=== PATIENT | female | born 1980 | race Caucasian/White ===

== ENCOUNTER → 2018-07-27 13:11 | Outpatient (REF) | payer OTHER, SELFPAY | LOC: LBN 13:11 | PROVIDERS: PCP Nurse Practitioner; Visit Provider Nurse Practitioner Family | DX: J02.9 Acute pharyngitis, unspecified (principal) | CPT/HCPCS: 87077; 87070 ==

== ENCOUNTER 2018-09-04 11:13 | Outpatient (REF) | payer OTHER, SELFPAY ==
[2018-09-07 14:57] LABS: Chlamydia Result Negative; GC Result Negative; Specimen Description CERVIX
== END 2018-09-04 11:33 ==
LOC: LBN 11:13
PROVIDERS: PCP Nurse Practitioner; Visit Provider Nurse Practitioner Women's Health
DX: Z11.3 Encounter for screening for infections with a predominantly sexual mode of transmission (principal)
CPT/HCPCS: 87491; 87591

== ENCOUNTER 2018-12-03 11:47 | Outpatient (CLI) | payer OTHER, SELFPAY ==
[2018-12-03 12:44] LABS: HGB 13.4 g/dL (12.0-15.5); Mean Corp. HGB Concentration 33.5 g/dL (32.0-36.0); Mean Corpuscular Hemoglobin 30.2 pg (27.0-33.0); Mean Corpuscular Volume 90.1 fL (80-95); Mean Platelet Volume 9.4 fL (8.0-11.0); Platelet Count 221 x1000/uL (130-400); RBC 4.44 m/cumm (4.00-5.20); RBC Distribution Width 12.1 % (11.7-14.6); White Blood Cell Count 5.28 k/cumm (4.4-10.8)
[2018-12-03 13:23] LABS: ALT 29 U/L (12-78); AST 22 U/L (15-37); Albumin 4.2 g/dL (3.4-5.0); Alkaline Phosphatase 65 U/L (46-116); BUN 12 mg/dL (7-18); Bilirubin, Total 0.5 mg/dL (0.2-1.0); CREATININE 0.94 mg/dL (0.55-1.02); Calcium 9.2 mg/dL (8.5-10.1); Chloride 104 mmol/L (98-107); Glucose 78 mg/dL (70-100); Potassium 4.1 mmol/L (3.5-5.1); Sodium 143 mmol/L (136-145); TSH (W/Ref FT4) 1.39 uIU/mL (0.358-3.74); Total Protein 7.4 g/dL (6.4-8.2)
[2018-12-03 13:40] LABS: ESR 7 MM/HR (0-20)
[2018-12-04 12:58] LABS: ANA Interpretation Negative (NEGAT)
== END 2018-12-03 12:07 ==
PROVIDERS: PCP Nurse Practitioner; Visit Provider Nurse Practitioner
DX: R60.0 Localized edema (principal); R53.83 Other fatigue; R06.09 Other forms of dyspnea; I73.9 Peripheral vascular disease, unspecified; R63.5 Abnormal weight gain
CPT/HCPCS: 36415; 80053; 85027; 85652; 84443; 86038

== ENCOUNTER 2018-12-11 00:08 | Outpatient (CLI) | payer OTHER, SELFPAY ==
--- NOTE | 2018-12-11 07:19 | DI.US_ITS ---
SYMPTOMS/DIAGNOSIS: BLOATING, BILATERAL LOWER EXTREMITY EDEMA X 6 MOS, ABDOMINAL DISTENTION, DYSPAREUNIA, R14.0, R60.0, ? PELVIC CONGESTION SYNDROME PELVIC ULTRASOUND: Transabdominal and transvaginal exams were performed. Comparison is made with May,. The transabdominal images are limited by inadequate bladder distention. The uterus measures 9 x 4.6 x 5.7 cm. An IUD is seen appropriately positioned within the endometrium. The uterus is again noted to be retroverted. An involuting cyst is seen on the right ovary. There is some free fluid around the ovaries and in the cul-de-sac. There are dilated periuterine veins bilaterally, which show increased dilatation and blood flow with Valsalva. The vessel diameter is measured up to 6 mm. The findings may indicate pelvic congestion syndrome. IMPRESSION: Dilated periuterine vessels, which could indicate pelvic congestion syndrome.
--- NOTE | 2018-12-11 11:00 | MERGE_ITS ---
*[facility]* *[facility]* [address] [place] [address] Date of study: 12/11/2018 Transthoracic Echocardiography M-mode, complete 2D, complete spectral Doppler, and color Doppler *STUDY CONCLUSIONS* Impressions: Normal study. Summary: 1. Left ventricle: The cavity size was normal. Wall thickness was normal. Systolic function was normal. The estimated ejection fraction was 65-70%. Wall motion was normal; there were no regional wall motion abnormalities. Diastolic parameters were normal. 2. Right ventricle: The cavity size was normal. Wall thickness was normal. Systolic function was normal. 3. Pulmonary arteries: Pulmonary systolic pressure was within the normal range, in the range of 20mm Hg to 25mm Hg. *PATIENT PRESENTATION* Height: 170.2cm ((67in) ) S/D Pressure: 107 / 61 Weight: 83kg ((182.6lb) ) BSA: 2m^2 Test start time: 11:00 AM. Test stop time: 11:50 AM. PERFORMING [facility] COOK ROOM SUPERVISOR RT Lamberto (Uriel)(CT), CS ORDERING Gregoria Patiño REFERRING Gregoria Patiño *PROCEDURE DATA* Procedure information: The patient was identified by two identifiers. This study was interpreted by [facility]. Pertinent images and digital data are archived for permanent storage and are available for subsequent review. No prior study was available for comparison. Study status: Routine. Transthoracic echocardiography. M-mode, complete 2D, complete spectral Doppler, and color Doppler. A Transthoracic Echocardiogram was performed. Scanning was performed from the parasternal, apical, subcostal, and suprasternal notch acoustic windows. Images were obtained using an [id number] cardiac ultrasound machine. Image quality was adequate. Study completion: The patient tolerated the procedure well. There were no complications. History: PMH: LE edema, LE claudication, MORLEY, PVD, dyspnea. *CARDIAC ANATOMY* Left ventricle: The cavity size was normal. Wall thickness was normal. Systolic function was normal. The estimated ejection fraction was 65-70%. Wall motion was normal; there were no regional wall motion abnormalities. Diastolic parameters were normal. Aortic valve: Trileaflet; normal thickness leaflets. Mobility was not restricted. Doppler: Transvalvular velocity was within the normal range. There was no stenosis. There was no significant regurgitation. VTI ratio of LVOT to aortic valve: 0.73. Valve area (VTI): 2.1cm^2. Indexed valve area (VTI): 1cm^2/m^2. Peak velocity ratio of LVOT to aortic valve: 0.75. Valve area (Vmax): 2.2cm^2. Indexed valve area (Vmax): 1.1cm^2/m^2. Mean velocity ratio of LVOT to aortic valve: 0.78. Valve area (Vmean): 2.2cm^2. Indexed valve area (Vmean): 1.1cm^2/m^2. Mean gradient (S): 4.2mm Hg. Peak gradient (S): 7.5mm Hg. Aorta: Aortic root: The aortic root was normal in size. Ascending aorta: The ascending aorta was normal in size. Mitral valve: Structurally normal valve. Mobility was not restricted. Doppler: Transvalvular velocity was within the normal range. There was no evidence for stenosis. There was no significant regurgitation. Valve area by pressure half-time: 3.9cm^2. Indexed valve area by pressure half-time: 1.9cm^2/m^2. Peak gradient (D): 3.3mm Hg. Left atrium: The atrium was normal in size. Right ventricle: The cavity size was normal. Wall thickness was normal. Systolic function was normal. Pulmonic valve: Doppler: Transvalvular velocity was within the normal range. There was no evidence for stenosis. There was no significant regurgitation. Peak gradient (S): 3.3mm Hg. Tricuspid valve: Structurally normal valve. Doppler: Transvalvular velocity was within the normal range. There was no evidence for stenosis. There was trivial regurgitation. Pulmonary artery: Pulmonary systolic pressure was within the normal range, in the range of 20mm Hg to 25mm Hg. Right atrium: The atrium was normal in size. Pericardium: There was no pericardial effusion. Systemic veins: Inferior vena cava: Well visualized. The vessel was patent and normal in size. The respirophasic diameter changes were in the normal range (greater than or equal to 50%). Baseline ECG: Normal sinus rhythm. Measurements Left ventricle Value Reference LV ID, ED, PLAX 4.6 cm 3.5 - 6.0 LV ID, ES, PLAX 3.1 cm 2.1 - 4.0 LV PW thickness, ED, PLAX 0.9 cm LV end-diastolic volume, 1-p A2C 81 ml LV ejection fraction, 1-p A2C 70 % LV end-diastolic volume, 1-p A4C 88 ml LV ejection fraction, 1-p A4C 68 % LV e', lateral 0.176 m/sec LV E/e', lateral 5 LV e', medial 0.159 m/sec LV E/e', medial 6 LV e', average 0.167 m/sec LV E/e', average 5 Ventricular septum Value Reference IVS thickness, ED, PLAX 0.9 cm LVOT Value Reference LVOT ID, A-P 1.9 cm LVOT area 2.9 cm^2 LVOT peak velocity, S 1.03 m/sec LVOT mean velocity, S 0.76 m/sec LVOT VTI, S 24.1 cm LVOT peak gradient, S 4.2 mm Hg LVOT mean gradient, S 2.5 mm Hg Stroke volume (SV), LVOT DP 69 ml Stroke index (SV/bsa), LVOT DP 34 ml/m^2 Aortic valve Value Reference Aortic valve peak velocity, S 1.4 m/sec Aortic valve mean velocity, S 0.97 m/sec Aortic valve VTI, S 33.0 cm Aortic mean gradient, S 4.2 mm Hg Aortic peak gradient, S 7.5 mm Hg VTI ratio, LVOT/AV 0.73 Aortic valve area, VTI 2.1 cm^2 Velocity ratio, peak, LVOT/AV 0.75 Aortic valve area, peak velocity 2.2 cm^2 Velocity ratio, mean, LVOT/AV 0.78 Aortic valve area, mean velocity 2.2 cm^2 Aortic valve area/bsa, mean velocity 1.1 cm^2/m^2 Aorta Value Reference Aortic root ID, ED 2.9 cm Ascending aorta ID, A-P, S 2.7 cm Left atrium Value Reference LA ID, A-P, ES 2.8 cm LA ID/bsa, A-P 1.4 cm/m^2 <=2.2 LA area, ES, A4C 19.6 cm^2 8.8 - 23.4 LA area, ES, A2C 14 cm^2 LA volume/bsa, ES, 1-p A4C 32 ml/m^2 LA volume, ES, 2-p 41 ml LA volume/bsa, ES, 2-p 20 ml/m^2 LA/aortic root ratio 0.99 Mitral valve Value Reference Mitral E-wave peak velocity 0.91 m/sec Mitral A-wave peak velocity 0.35 m/sec Mitral deceleration time 197 ms 150 - 230 Mitral pressure half-time 57 ms Mitral peak gradient, D 3.3 mm Hg Mitral E/A ratio, peak 2.56 Mitral valve area, PHT, DP 3.9 cm^2 Pulmonary veins Value Reference Pulmonary vein peak velocity, S 0.52 m/sec Pulmonary vein peak velocity, D 0.48 m/sec Pulmonary vein velocity ratio, peak, 1.1 S/D Pulmonary vein A-wave reversal peak 0.33 m/sec velocity Tricuspid valve Value Reference Tricuspid regurg peak velocity 2.4 m/sec Tricuspid peak RV-RA gradient 23.3 mm Hg Right atrium Value Reference RA area, ES, A4C 11.9 cm^2 8.3 - 19.5 Pulmonic valve Value Reference Pulmonic peak gradient, S 3.3 mm Hg Legend: (L) and (H) analia values outside specified reference range. I have personally reviewed the images and have reviewed and edited the reported findings. Electronically signed by Lalo Doshi 12/11/2018 12:50
== END 2018-12-11 00:28 ==
PROVIDERS: PCP Nurse Practitioner; Visit Provider Nurse Practitioner
DX: R06.09 Other forms of dyspnea (principal); R60.0 Localized edema; I73.9 Peripheral vascular disease, unspecified; R14.0 Abdominal distension (gaseous); N94.10 Unspecified dyspareunia
CPT/HCPCS: 36415; 76830; 76856; 93306

== ENCOUNTER 2019-01-18 01:15 | Outpatient (CLI) | payer OTHER, SELFPAY ==
--- NOTE | 2019-01-18 10:56 | DI.US_ITS ---
SYMPTOMS/DIAGNOSIS: LEFT LEG SWELLING, M79.89, PELVIC CONGESTION WITH DIFFERENTIAL DIAGNOSIS OF ? DVT LEFT LOWER EXTREMITY ULTRASOUND: The deep veins of the left lower extremity show normal compression, augmentation and color flow. No evidence of a deep venous thrombus is seen. The saphenofemoral junction is well maintained. No focal fluid collections are appreciated. IMPRESSION: No evidence of a left lower extremity DVT.
== END 2019-01-18 01:35 ==
PROVIDERS: PCP Nurse Practitioner; Visit Provider Student in an Organized Health Care Education/Training Program
DX: M79.605 Pain in left leg (principal); M79.89 Other specified soft tissue disorders
CPT/HCPCS: 93971

== ENCOUNTER 2019-07-28 13:07 | Outpatient (CLI) | payer OTHER, SELFPAY ==
[2019-07-28 13:38] LABS: HGB 13.7 g/dL (12.0-15.5); Mean Corp. HGB Concentration 33.4 g/dL (32.0-36.0); Mean Corpuscular Hemoglobin 30.1 pg (27.0-33.0); Mean Corpuscular Volume 90.1 fL (80-95); Mean Platelet Volume 9.3 fL (8.0-11.0); Platelet Count 234 x1000/uL (130-400); RBC 4.55 m/cumm (4.00-5.20); RBC Distribution Width 12.3 % (11.7-14.6); White Blood Cell Count 4.74 k/cumm (4.4-10.8)
[2019-07-28 14:08] LABS: ALT 31 U/L (14-59); AST 19 U/L (15-37); Albumin 4.3 g/dL (3.4-5.0); Alkaline Phosphatase 64 U/L (46-116); Anion Gap 8.2 mmol/L (3-11); BUN 10 mg/dL (7-18); Bilirubin, Total 0.5 mg/dL (0.2-1.0); CO2 28.8 mmol/L (21.0-32.0); CREATININE 0.86 mg/dL (0.55-1.02); Calcium 8.7 mg/dL (8.5-10.1); Chloride 105 mmol/L (98-107); Glucose 82 mg/dL (70-100); Potassium 4.1 mmol/L (3.5-5.1); Sodium 142 mmol/L (136-145); Total Protein 7.3 g/dL (6.4-8.2)
[2019-07-28 14:16] LABS: C-Reactive Protein 0.16 mg/dL (0.0-0.3); Creatine Kinase 116 U/L (26-192); TSH (W/Ref FT4) 2.09 uIU/mL (0.36-3.74)
[2019-07-28 14:24] LABS: ESR 5 mm/hr (0-20)
[2019-07-28 14:36] LABS: Vitamin D 25 Total 21.9 ng/ml (30-100)
[2019-07-28 21:49] LABS: Estradiol 148 pg/ml
[2019-07-29 10:09] LABS: Rheumatoid Factor <8 IU/mL (<12.5)
[2019-07-29 10:23] LABS: Lyme Ab w Rflx to Lyme Confirm Negative
[2019-07-29 14:53] LABS: ANA Interpretation Negative (NEGAT)
[2019-07-30 10:20] LABS: IgA 153 mg/dL (85-499); Interpretation SEE COMMENTS; Tissue Transglutaminase IgA <1.2 U/mL (<4.0)
== END 2019-07-28 13:27 ==
PROVIDERS: PCP Nurse Practitioner; Visit Provider Nurse Practitioner
DX: M25.50 Pain in unspecified joint; M62.89 Other specified disorders of muscle; R25.2 Cramp and spasm; R60.0 Localized edema; R63.5 Abnormal weight gain; I10 Essential (primary) hypertension
CPT/HCPCS: 36415; 80053; 82306; 82550; 82784; 83516; 85027; 85652; 82670; 84443; 86038; 86140; 86431; 86618

== ENCOUNTER 2019-10-15 14:21 | Outpatient (CLI) | payer OTHER, SELFPAY ==
--- NOTE | 2019-10-15 14:30 | DI.RAD_ITS ---
EXAM: XR CERVICAL SPINE COMP 4-5V CLINICAL HISTORY: s/p trauma 10/02, suspect muscular, r/o fx/bone,NECK PAIN, HEADACHE,. TECHNIQUE: 2D digital imaging was performed. COMPARISON: No exams were available for comparison FINDINGS: BONES: No fracture or destructive lesion. Vertebral bodies are unremarkable. DISKS: Intervertebral disc spaces are maintained. ALIGNMENT: Cervical spinal alignment is within normal limits. The odontoid and atlantoaxial articulat ions are normal. SOFT TISSUE: Normal. The lung apices are clear. IMPRESSION: Unremarkable radiographs of the cervical spine.
== END 2019-10-15 14:41 ==
PROVIDERS: PCP Nurse Practitioner; Visit Provider Nurse Practitioner Adult Health
DX: M54.2 Cervicalgia (principal); R51 Headache; S06.0X0D Concussion without loss of consciousness, subsequent encounter
CPT/HCPCS: 72050

== ENCOUNTER 2020-03-23 08:01 | Outpatient (REF) | payer OTHER, SELFPAY ==
--- NOTE | 2020-03-23 07:45 | SKI_PTH ---
PATIENT: Janey Zapata LOC: [facility] U#:[id number] AGE/SX: 40/F ROOM: RE03/23/[address]: Jayme Edwards MD : 1980 BED: DIS: 03/23/2020 SPEC #: [id number] RECD: 03/23/20 12:53 STATUS: AGUSTIN REQ #: [id number] TERESA: 03/23/20 07:[address]: Jayme Edwards DEPT: Surgical Specimen RECD BY: David Dawson ENTERED: 03/23/20 12:56 SP TYPE: TERRA HALL DR: Altagracia Good APRN Tissues: 1 - SKIN BIOPSY(SHAVE/PUNCH) Procedures: SKIN LEVEL 4 Comments: [id number]
== END 2020-03-23 08:21 ==
LOC: LBN 08:01
PROVIDERS: PCP Nurse Practitioner Adult Health; Visit Provider Otolaryngology
DX: L98.499 Non-pressure chronic ulcer of skin of other sites with unspecified severity (principal); R21 Rash and other nonspecific skin eruption
CPT/HCPCS: 88305

== ENCOUNTER 2020-05-31 04:26 | Outpatient (CLI) | payer OTHER, SELFPAY ==
[2020-05-31 16:17] LABS: ALT 28 U/L (14-59); AST 20 U/L (15-37); Albumin 4.7 g/dL (3.4-5.0); Alkaline Phosphatase 52 U/L (46-116); Anion Gap 10.2 mmol/L (3-11); BUN 17 mg/dL (7-18); Bilirubin, Total 0.5 mg/dL (0.2-1.0); CO2 27.8 mmol/L (21.0-32.0); CREATININE 1.16 mg/dL (0.55-1.02); Calcium 9.3 mg/dL (8.5-10.1); Chloride 102 mmol/L (98-107); Estimated GFR 52.28 (mL/min/1.73m2); Glucose 92 mg/dL (74-106); Potassium 4.3 mmol/L (3.5-5.1); Sodium 140 mmol/L (136-145); TSH (W/Ref FT4) 1.75 uIU/mL (0.36-3.74); Total Protein 7.4 g/dL (6.4-8.2)
[2020-06-01 04:24] LABS: Vitamin D 25 Total 26.3 ng/ml (30-100)
== END 2020-05-31 04:46 ==
PROVIDERS: PCP Nurse Practitioner Adult Health; Visit Provider Nurse Practitioner Adult Health
DX: E55.9 Vitamin D deficiency, unspecified (principal); F41.9 Anxiety disorder, unspecified; R63.5 Abnormal weight gain
CPT/HCPCS: 36415; 80053; 82306; 84443

== ENCOUNTER 2020-08-11 16:54 | Outpatient (CLI) | payer OTHER, SELFPAY ==
[2020-08-11 16:27] LABS: Anion Gap 8.6 mmol/L (3-11); BUN 15 mg/dL (7-18); CO2 27.4 mmol/L (21.0-32.0); CREATININE 1.16 mg/dL (0.55-1.02); Chloride 106 mmol/L (98-107); Estimated GFR 52.28 (mL/min/1.73m2); Glucose 86 mg/dL (74-106); Potassium 3.8 mmol/L (3.5-5.1); Sodium 142 mmol/L (136-145)
== END 2020-08-11 17:14 ==
PROVIDERS: PCP Nurse Practitioner Adult Health; Visit Provider Nurse Practitioner Adult Health
DX: E55.9 Vitamin D deficiency, unspecified (principal); R79.89 Other specified abnormal findings of blood chemistry
CPT/HCPCS: 36415; 80048; 82306

== ENCOUNTER 2020-08-28 02:01 | Outpatient (CLI) | payer OTHER, SELFPAY ==
--- NOTE | 2020-08-28 08:30 | DI.US_ITS ---
EXAM: US RENAL CLINICAL HISTORY: r/o hydronephrosis; assess kidneys,ELEVATED CREATININE,R79.89. TECHNIQUE: Olivas scale, color and spectral Doppler were used. COMPARISON: No exams were available for comparison FINDINGS: Renal size in cm: Right: 11.2 left: 11.5 Echogenicity: Normal Hydronephrosis: No Cyst or mass: 1.4 centimeters cyst near the lower pole of the left kidney. Nephrolithiasis: 3 millimeter echogenic foci near the upper and mid left kidney which could represent small stones versus artifact. Other findings: None Bladder:Normal Prevoid vol:391 Postvoid vol:79 Both ureteral jets were seen. There is a small amount of fluid in the cul-de-sac, physiologic. IMPRESSION: Elevated postvoid residual. Questionable left renal stones versus artifact. DATA REPOSITORY:
== END 2020-08-28 02:21 ==
PROVIDERS: PCP Nurse Practitioner Adult Health; Visit Provider Nurse Practitioner Adult Health
DX: R79.89 Other specified abnormal findings of blood chemistry (principal); R39.198 Other difficulties with micturition
CPT/HCPCS: 76770

== ENCOUNTER 2020-10-25 09:53 | Outpatient (REF) | payer OTHER, SELFPAY ==
--- NOTE | 2020-10-25 08:45 | PAPFT_PTH ---
PATIENT: Janey Zapata LOC: [facility] U#:[id number] AGE/SX: 40/F ROOM: RE10/25/[address]: Charlene Babcock DO : 1980 BED: DIS: 10/25/2020 SPEC #: [id number] RECD: 10/25/20 12:54 STATUS: AGUSTIN REQ #: [id number] TERESA: 10/25/20 08:[address]: Charlene Babcock [facility]PT[facility] Cytology RECD BY: Aaliyah Powell ENTERED: 10/25/20 12:54 SP TYPE: PAPFT OTHR DR: Altagracia Good APRN Tissues: 1 - CX/ENDOCX FOR PAP SMEARS Procedures: PAP THIN PREP/UVM Screening Comments: [id number]
== END 2020-10-25 10:13 ==
LOC: LBN 09:53
PROVIDERS: PCP Nurse Practitioner Adult Health; Visit Provider Obstetrics & Gynecology
DX: Z12.4 Encounter for screening for malignant neoplasm of cervix (principal)
CPT/HCPCS: 88142

== ENCOUNTER 2020-11-01 00:34 | Outpatient (CLI) | payer OTHER, SELFPAY ==
--- NOTE | 2020-11-01 07:15 | DI.US_ITS ---
EXAM: US BREAST RT COMPLETE CLINICAL HISTORY: right breast cyst,PAIN TO PALPATION, TWO SMALL LUMPS TECHNIQUE: Ultrasound complete right breast performed. COMPARISON: Today's mammogram was reviewed. FINDINGS: There is no evidence of solid nor significant cystic lesions in all 4 quadrants of the right breast. There are no ultra findings in the 2 areas of apparent clinical concern. There are normal-appearing lymph nodes in the ipsilateral-right axilla. IMPRESSION: Negative complete right breast ultrasound. BI-RADS Category 2 - Benign ultrasound findings DATA REPOSITORY:
--- NOTE | 2020-11-01 10:02 | DI.MAMMO_ITS ---
EXAM: MG MAMMO DIAGNOSTIC BI CLINICAL HISTORY: right breast cyst,PAIN TO PALPATION, TWO SMALL LUMPS. TECHNIQUE: Bilateral full field digital CC and MLO mammographic images were obtained with 3D tomosyn thesis and utilizing computer aided detection (CAD). COMPARISON: None. FINDINGS: There are no CAD designation. There are no new dominant masses nor malignant appearing microcalcification groups. No radiographic f indings in the area of concern in the right breast. No significant architectural distortion or skin thickening-traction. Complete right breast ultrasound performed today reveals no significant solid or cystic lesions in al l 4 quadrants and no significant axillary adenopathy. No significant focal trunk findings in her areas of clinical concern. IMPRESSION: 1. No radiographic evidence of malignancy in the right breast 2. Negative complete right breast ultrasound. BI-RADS Category 2 - Benign Findings Breast Density - Category B - Scattered areas of fibroglandular density Breast density Category C or D implies that the patient has dense breast tissue. Dense breast tissue can make it harder to find cancer on a mammogram. Dense breast tissue is also associated with an incr eased risk of breast cancer. This information about the result of the mammogram report was provided to the patient to raise their awareness. Use this report when you speak with the patient about their risks for breast cancer, which includes their family history. At that time, you may recommend additional screening tests (Ultrasoun d or MRI) as these tests may add significant information. A negative radiographic report should not delay biopsy if a dominant or clinically suspicious mass is present. Up to ten percent of cancers are not identified on mammography. A negative report may reinforce clinical impression. Adenosis and dense breasts may obscure an underlying neoplasm. False positive reports average 6 to 10%. Patient will receive a letter notifying them of these results.
== END 2020-11-01 00:54 ==
PROVIDERS: PCP Nurse Practitioner Adult Health; Visit Provider Obstetrics & Gynecology
DX: N60.01 Solitary cyst of right breast (principal)
CPT/HCPCS: 76642; 77062; 77066; G0279

== ENCOUNTER 2020-11-08 03:44 | Outpatient (CLI) | payer OTHER, SELFPAY ==
[2020-11-08 13:16] LABS: ALT 20 U/L (14-59); AST 16 U/L (15-37); Albumin 4.5 g/dL (3.4-5.0); Alkaline Phosphatase 48 U/L (46-116); Anion Gap 10.4 mmol/L (3-11); BUN 14 mg/dL (7-18); Bilirubin, Total 0.3 mg/dL (0.2-1.0); CO2 26.6 mmol/L (21.0-32.0); CREATININE 1.04 mg/dL (0.55-1.02); Calcium 9.2 mg/dL (8.5-10.1); Chloride 103 mmol/L (98-107); Glucose 81 mg/dL (74-106); Potassium 4.4 mmol/L (3.5-5.1); Sodium 140 mmol/L (136-145); Total Protein 7.2 g/dL (6.4-8.2)
== END 2020-11-08 04:04 ==
PROVIDERS: PCP Nurse Practitioner Adult Health; Visit Provider Nurse Practitioner Gerontology
DX: R33.9 Retention of urine, unspecified (principal); R79.89 Other specified abnormal findings of blood chemistry
CPT/HCPCS: 36415; 80053

== ENCOUNTER 2020-11-09 01:36 | Outpatient (CLI) | payer OTHER, SELFPAY ==
--- NOTE | 2020-11-09 07:00 | DI.CT_ITS ---
EXAM: CT ABDOMEN PELVIS WO/W CLINICAL HISTORY: flank pain w/ ABN renal functions,H/O UROLITHIASIS,ABD PAIN,R10.9. TECHNIQUE: Imaging Protocol: Axial computed tomography images with coronal and sagittal reformatted images were created and reviewed CONTRAST MATERIAL: Intravenous: Omnipaque 100cc Oral: None COMPARISON: No exams were available for comparison FINDINGS: VISUALIZED LUNG BASES: No nodules nor pleural effusions evident. ABDOMEN: There is no ascites. LIVER: There are no obvious focal hepatic lesions evident . GALLBLADDER/BILIARY: No obvious gallbladder pathology. CBD is not dilated. PANCREAS: No evidence of pancreatic mass nor dilatation of the pancreatic duct. SPLEEN: Spleen is not enlarged. No obvious intrasplenic lesions. Splenic and portal veins are paten t. ADRENALS: There are no significant adrenal masses. KIDNEYS: No calculi nor hydronephrosis. No solid renal masses. There is a benign cyst in the inferior pole of the left kidney which measures 1.3 x 1.2 centimetres.. No other focal renal findings. There is a prominent left gonadal vein which show an exhibits a diameter of 7-8 millimeters and which originates as multiple prominent left adnexal veins and drains into the left renal vein. ABDOMINAL AORTA: Abdominal aorta is not enlarged and there is no olcmtjoahjgaiaf-jdhc-limmqk adenopat hy. ABDOMINAL WALL/GI: No evidence of significant anterior abdominal wall hernia. No bowel obstruction. PELVIS: GI: No evidence of appendicitis.No evidence of sigmoid diverticulitis. LYMPH NODES: There is no intrapelvic nor inguinal adenopathy. REPRODUCTIVE: There is an IUD in the uterine cavity. Three the uterus is retroverted. There is smal l amount of fluid adjacent to the fundus of the uterus. There is a cyst in the left ovary which alannah ures 2 x 1.5 centimetres. And others slightly smaller cyst is seen in the right ovary. URINARY BLADDER: No calculi nor obvious masses evident OSSEOUS: No significant osseous lesions. Chronic degenerative disc disease L5-S1 noted. IMPRESSION: 1. Benign 13 x 12 millimeters cyst in the inferior pole of the left kidney. No ominous solid renal m asses. No calculi or hydronephrosis. 2. There are numerous dilated veins in the left adnexa and these drain into a prominent size vertical gonadal vein which itself drains into the left renal vein. Correlation any clinical signs of pelvic congestion syndrome recommended. There is no thrombosis of these veins evident. 3. The uterus is retroverted. There is an IUD in the uterine cavity which appears in satisfactory po sition. However, there is some fluid evident over the fundus of the uterus-presacral region. RADIATION DOSE DELIVERED: 2,718.7mGy.cm Total DLP DATA REPOSITORY: All CT scans at this facility are submitted to the National Radiology Data Registry (NRDR) Dose Index Registry (DIR) with the [employer] (A[employer]). RADIATION OPTIMIZATION: All CT scans at this facility use at least one of these dose optimization te chniques: automated exposure control; mA and/or kV adjustment per patient size (includes targeted exa ms where dose is matched to clinical indication); or iterative reconstruction.
[2020-11-09] MEDS: Omnipaque 350 MG/ML 100 ML BTL IJ (08:47)
[2020-11-09] MEDS: Normal Saline - Diluent 50 ML VIAL IV ×2 (08:48→09:02)
== END 2020-11-09 01:56 ==
PROVIDERS: PCP Nurse Practitioner Adult Health; Visit Provider Nurse Practitioner Gerontology
DX: R10.9 Unspecified abdominal pain (principal); R94.4 Abnormal results of kidney function studies
CPT/HCPCS: 74178; J3490

== ENCOUNTER 2021-02-16 02:31 | Outpatient (CLI) | payer OTHER, SELFPAY ==
[2021-02-16 13:59] LABS: ALT 25 U/L (14-59); AST 17 U/L (15-37); Albumin 4.3 g/dL (3.4-5.0); Alkaline Phosphatase 56 U/L (46-116); Anion Gap 8.1 mmol/L (3-11); BUN 11 mg/dL (7-18); Bilirubin, Total 0.5 mg/dL (0.2-1.0); CO2 28.9 mmol/L (21.0-32.0); Chloride 104 mmol/L (98-107); Glucose 84 mg/dL (74-106); Sodium 141 mmol/L (136-145); Total Protein 7.1 g/dL (6.4-8.2)
== END 2021-02-16 02:32 | disposition home or self-care (01) ==
LOC: LBO 02:32
PROVIDERS: PCP Nurse Practitioner Adult Health; Visit Provider Nurse Practitioner Gerontology
DX: R33.9 Retention of urine, unspecified (principal)
CPT/HCPCS: 36415; 80053

== ENCOUNTER 2021-11-01 12:43 | Outpatient (CLI) | payer OTHER, SELFPAY ==
--- NOTE | 2021-11-01 12:35 | DI.RAD_ITS ---
Exam(s) XR HIP RT COMPLETE AP PELVIS EXAM: XR HIP RT COMPLETE AP PELVIS CLINICAL HISTORY: assess bony alignment R hip; signs impingment?, rt hip pain, M25.551,M62.89. TECHNIQUE: 2D digital imaging was performed. COMPARISON: No exams were available for comparison FINDINGS: No evidence of pelvic nor hip fracture. No hip dysplasia. No degenerative changes either hip. Bone density normal. No osseous lesions. Sacroiliac joints appear unremarkable as does the symphysis pu bis. IUD noted in the central pelvis. IMPRESSION: No significant radiographic findings. DATA REPOSITORY: RADIATION DOSE DELIVERED:
== END 2021-11-01 13:03 ==
PROVIDERS: PCP Nurse Practitioner Adult Health; Visit Provider Nurse Practitioner Adult Health
DX: M25.551 Pain in right hip (principal); M62.89 Other specified disorders of muscle
CPT/HCPCS: 73502

== ENCOUNTER 2022-01-31 02:43 | Outpatient (CLI) | payer OTHER, SELFPAY ==
--- NOTE | 2022-01-31 14:15 | W.PROCNOTE ---
Procedure Note Date of procedure: 01/31/22 Procedure: Right Hip Injection with Fluoroscopic Guidance Surgeon/Proceduralist/Physician: Jay Malik Procedure Diagnosis: Right Hip Labral Tear Procedure Indications: Janey has had persistent pain of the RIGHT hip and groin. Noninvasive measures have been tried. She has a confirmed labral tear of the right hip. To serve as both diagnostic and therapeutic, an injection under fluoroscopy was recommended. I had discussed the risks of the procedure and the patient elected to proceed. Procedure Description: Janey was greeted in the flouroscopy room. The correct side was identified and the consent was reviewed with the patient and signed. The patient was then placed in the supine position on the fluoroscopy table. The RIGHT hip was then prepped with Chloraprep. The anterolateral injection starting point was identiifed by bony landmarks and fluoroscopy. The skin and soft tissue in the tract of the injection was anesthetized with 1% Lidocaine. A spinal needle was then inserted deep into the hip joint at the level of the lateral femoral neck under fluoroscopic guidance. A small amount of Omnipaque solution was injected to confirm intraarticular placement. Once confirmed, the hip was injected with 6cc of 0.5% Bupivicaine and 80mg of Depo-Medrol. A bandaid was placed on the injection site. The patient tolerated the procedure well and noted improvement in pre-injection pain.
--- NOTE | 2022-01-31 14:17 | DI.RAD_ITS ---
Exam(s) RF JOINT INJECTION FLUORO GUID EXAM: RF JOINT INJECTION FLUORO GUID CLINICAL HISTORY: R LABRAL TEAR,gluteal tendinitis,trochanteric bursitis,labral tear,m70.61 TECHNIQUE: 2D and realtime digital imaging was performed. Fluoroscopy was provided for Dr. Kathy gonsalez r guidance with performing a right hip injection COMPARISON: No exams were available for comparison FINDINGS: A single hard copy image shows needle projecting at the lateral margin of the right femoral neck. Sm all amount contrast is seen within the right hip joint. Please see procedure note for details. Fluo ro time 6 seconds RADIATION DOSE DELIVERED: maryjane Simmons=0.75 mGy
[2022-01-31] MEDS: Bupivacaine 0.5% Pres-Free 10 ML VIAL IJ (14:44)
[2022-01-31] MEDS: methylPREDNISolone ACETATE 80 MG/ML VIAL IM (14:45)
[2022-01-31] MEDS: Omnipaque 300 MG/ML 10 ML BTL IJ (14:45)
== END 2022-01-31 03:03 ==
PROVIDERS: PCP Nurse Practitioner Adult Health; Visit Provider Student in an Organized Health Care Education/Training Program
DX: M70.61 Trochanteric bursitis, right hip (principal); M76.01 Gluteal tendinitis, right hip; S73.191A Other sprain of right hip, initial encounter
CPT/HCPCS: 77002; J1040

== ENCOUNTER 2022-05-15 15:45 | Outpatient (CLI) | payer OTHER, SELFPAY ==
[2022-05-15 16:13] LABS: Abs Immature Grans 0.01 10^3/uL (0.0-0.06); Absolute Basophil Count 0.03 10^3/uL (0.0-0.2); Absolute Eosinophil Count 0.04 10^3/uL (0.0-0.7); Absolute Lymphocyte Count 1.38 10^3/uL (1.2-3.4); Absolute Neutrophil Count 3.39 10^3/uL (1.2-6.7); Basophils % 0.6; Eosinophils % 0.8; HCT 38.4 % (36.0-46.0); HGB 12.8 g/dL (11.2-15.7); Immature Grans % 0.2; Lymphocytes % 26.3; MCHC 33.3 % (32.0-36.0); MCV 90 fL (80-95); MPV 9.4 fL (8.0-11.0); Monocytes % 7.6; Neutrophils % 64.5; Platelet Count 208 10^3/uL (130-400); RBC 4.26 10^6/uL (3.93-5.22); RDW 11.9 % (11.7-14.6); RDW-SD 38.9 fL; WBC 5.25 10^3/uL (4.4-10.8)
[2022-05-15 16:20] LABS: ESR 1 mm/hr (0-20)
[2022-05-15 17:20] LABS: ALT 28 U/L (14-59); AST 10 U/L (15-37); Albumin 4.4 g/dL (3.4-5.0); Alkaline Phosphatase 54 U/L (46-116); Anion Gap 9.4 mmol/L (3-11); BUN 11 mg/dL (7-18); Bilirubin, Total 0.6 mg/dL (0.2-1.0); CO2 27.6 mmol/L (21.0-32.0); Calcium 8.8 mg/dL (8.5-10.1); Chloride 103 mmol/L (98-107); Folate 14.2 ng/mL (8.6-20.0); Glucose 81 mg/dL (74-106); Potassium 4.1 mmol/L (3.5-5.1); Sodium 140 mmol/L (136-145); TSH (W/Ref FT4) 1.62 uIU/mL (0.36-3.74); Total Protein 7.2 g/dL (6.4-8.2); Vitamin B12 717 pg/mL (193-986)
[2022-05-15 17:34] LABS: C-Reactive Protein 0.14 mg/dL (0.0-0.3)
[2022-05-17 13:21] LABS: Albumin 63.8 % (55.8-66.1); Albumin g/dL 4.6 g/dL (3.6-5.2); Total Protein 7.2 g/dL (6.3-8.2)
[2022-05-17 15:45] LABS: ANA Interpretation Negative (Negative)
== END 2022-05-15 15:46 | disposition home or self-care (01) ==
LOC: LBO 15:46
PROVIDERS: PCP Nurse Practitioner Adult Health; Visit Provider Nurse Practitioner Adult Health
DX: M70.71 Other bursitis of hip, right hip (principal); M25.50 Pain in unspecified joint; R21 Rash and other nonspecific skin eruption; R23.2 Flushing; R60.0 Localized edema; R68.89 Other general symptoms and signs; R53.83 Other fatigue
CPT/HCPCS: 36415; 80053; 85652; 82607; 82746; 84165; 84443; 85025; 86038; 86140

== ENCOUNTER → 2022-05-16 02:25 | Outpatient (CLI) | payer OTHER, SELFPAY ==
--- NOTE | 2022-05-16 07:45 | DI.RAD_ITS ---
Exam(s) RF JOINT INJECTION FLUORO GUID EXAM: RF JOINT INJECTION FLUORO GUID CLINICAL HISTORY: R HIP PAIN,M76.01,M70.61,S73.191A,FLUOR GUIDED INJECTION,LABRAL TEAR TECHNIQUE: Fluoroscopy provided. Radiologist not present. CONTRAST MATERIAL: None COMPARISON: No exams were available for comparison FINDINGS: Fluoroscopy was provided for therapeutic . Submitted image(s) reveal intra-articular needle placement at the upper femoral neck head junction. Intra-articular contrast injected. Please refer to the procedure report for complete details. Cumulative Dose: maryjane Simmons=1.22 mGy IMPRESSION: RADIATION DOSE DELIVERED:
--- NOTE | 2022-05-16 14:58 | OPPNE_ITS ---
Date of service: 05/16/22 Time of Service: 14:58 Procedure Note Date of procedure: 05/16/22 Procedure: Right Hip Injection with Fluoroscopic Guidance Surgeon/Proceduralist/Physician: Jay Malik Procedure Diagnosis: Right Hip Labral Tear Procedure Indications: Janey has had persistent pain of the RIGHT hip and groin from a labral tear. Noninvasive measures have been tried. A previous injection provided complete relief of pain but it returned. Therefore, an injection under fluoroscopy was recommended. I had discussed the risks of the procedure and the patient elected to proceed. Procedure Description: Janey was greeted in the flouroscopy room. The correct side was identified and the consent was reviewed with the patient and signed. The patient was then placed in the supine position on the fluoroscopy table. The RIGHT hip was then prepped with Chloraprep. The anterolateral injection starting point was i dentiifed by bony landmarks and fluoroscopy. The skin and soft tissue in the tract of the injection was anesthetized with 1% Lidocaine. A spinal needle was then inserted deep into the hip joint at the level of the lateral femoral neck under fluoroscopic guidance. A small amount of Omnipaque solution was injected to confirm intraarticular placement. Once confirmed, the hip was injected with 6cc of 0.5% Bupivicaine and 80mg of Depo-Medrol. A bandaid was placed on the injection site. The patient tolerated the procedure well and noted improvement in pre-injection pain.
== END ==
PROVIDERS: PCP Nurse Practitioner Adult Health; Visit Provider Student in an Organized Health Care Education/Training Program
DX: M70.61 Trochanteric bursitis, right hip (principal); M76.01 Gluteal tendinitis, right hip; S73.191A Other sprain of right hip, initial encounter; X58.XXXA Exposure to other specified factors, initial encounter
CPT/HCPCS: 20610; 77002

== ENCOUNTER 2022-05-20 02:43 | Outpatient (CLI) | payer OTHER, SELFPAY | END 2022-05-20 02:44 | disposition home or self-care (01) | LOC: LBO 02:43 | PROVIDERS: PCP Nurse Practitioner Adult Health; Visit Provider Nurse Practitioner Adult Health ==

== ENCOUNTER 2022-08-30 06:15 | Day surgery (SDC) | payer OTHER, SELFPAY ==
--- NOTE | 2022-08-29 13:59 | W.ANESPRE ---
General Info Date of Service Date Performed: 08/30/22 Height: 5 ft 7 in Weight: 84 kg Body Mass Index (BMI): 29.0 Surgical Procedure: Operation Date: 08/30/22 07:50 Proposed Procedure Side Surgeon p Hip Arthroscopy w/ Labral debridement vs Repair and Femoroplasty, Endoscopic Iliotibial Band Release and Trochanteric Buresectomy Right Todd Chavez MD Meds Allergies and Home Medications Allergies Allergy/AdvReac Type Severity Reaction Status Date / Time vancomycin Allergy Intermediate Rash Verified 08/30/22 06:30 oxycodone HCl [From Percocet] AdvReac Unknown GI Upset Verified 08/30/22 06:30 Home Medication Medication Instructions Recorded ibuprofen 600 mg tablet 600 mg PO PRN 01/03/16 acetaminophen 500 mg tablet 500 mg PO TID PRN 12/11/16 (Acetaminophen Extra Strength) multivitamin (Daily Multi-Vitamin 1 ea PO DAILY 12/11/16 tablet) levonorgestrel 20 mcg/24 hours (7 1 insert intrauterine ONCE 09/04/18 yrs) 52 mg intrauterine device (Mirena) cholecalciferol (vitamin D3) 25 2,000 unit PO DAILY 01/07/20 mcg/drop (1,000 unit/drop) oral drops triamcinolone acetonide 0.1 % 1 applic topical BID #80 grams 03/15/20 topical ointment clobetasol 0.05 % shampoo 1 applic topical DAILY #118 mL 03/20/20 magnesium oxide 500 mg capsule 500 mg PO .QOD 05/29/20 riboflavin (vitamin B2) 100 mg 100 mg PO DAILY 05/29/20 tablet (Vitamin B-2) bupropion HCl 200 mg tablet,12 hr 200 mg PO BID #180 tabs 08/29/21 sustained-release amlodipine 5 mg tablet 5 mg PO DAILY Raynauds #90 tabs 10/19/21 dimenhydrinate 25 mg chewable 50 mg PO PRN 05/15/22 tablet (Dramamine) clindamycin phosphate 1 % lotion 1 applic topical DAILY #60 mL 06/07/22 Current Visit Medications: Current Medications Generic Name Dose Route Start Last Admin Trade Name Freq PRN Reason Stop Dose Admin Ringer's Solution 1,000 mls @ 30 mls/hr 08/30/22 06:00 IV 08/30/22 16:00 INFUSION GISEL Cefazolin Sodium/Dextrose 2 gm in 50 mls @ 100 mls/hr 08/30/22 06:00 Ancef Duplex IVPB 08/30/22 23:59 PREOP GISEL IV Miscellaneous Supplies 1 each 08/30/22 06:00 Iv Access IV 08/30/22 23:59 DIRECTED GISEL Sodium Chloride 0 ml 08/30/22 06:00 Normal Saline Flush 10 Ml Syr IV 08/30/22 23:59 PRN PRN Sodium Chloride 0 ml 08/30/22 06:00 Normal Saline 10 Ml Vial IJ 08/30/22 23:59 DIRECTED PRN Sterile Water 0 ml 08/30/22 06:00 Water,Injection,Sterile 10 Ml Vial IJ 08/30/22 23:59 DIRECTED PRN PFSH Active Problems Active Problems: Problem Status Onset Code Gluteal tendinitis of right buttock M76.01 Trochanteric bursitis of right hip M70.61 Labral tear of right hip joint ~03/2021 S73.191A Raynauds disease I73.00 Elevated serum creatinine R79.89 Vitamin D deficiency E55.9 Anxiety F41.9 IUD surveillance 01/03/16 Z30.431 Medical History Medical History Concussion With post-concussive syndrome; FMLA Cyst of right breast Degeneration of lumbar intervertebral disc with acute herniation (11/28/16) s/p 2 back surgeries Depression Folliculitis (11/28/16) GERD (gastroesophageal reflux disease) (11/28/16) Incomplete bladder emptying Insomnia (11/28/16) Kidney stone Low back pain (11/28/16) Lower extremity edema Lumbar radicular syndrome (11/28/16) Numbness in right leg s/p neurosurgery x2 (posterior R knee and last 2 toes, foot pad) Pelvic congestion syndrome Post concussive syndrome Post laminectomy syndrome (11/28/16) Pruritic rash Derm ([facility]); Biopsy ([facility]) Vertigo (11/28/16) Surgical History Surgical History Discectomy (03/29/11) (R) L5-S1 microsurg decom discectomy - 2nd Surgery (R) L5-S1 discectomy and decompression 02/11 laminectomy (12/11/12) Dr. Santoyo 2011-[place], [place] Tobacco Smoking/Tobacco Use Status: Former Tobacco Use Passive smoking exposure: No Alcohol Alcohol Intake: current Alcohol intake frequency: 0-2 drinks per day Substance Use Substance use: Never Substance use type: does not use Prental History History 2 Para Hx # Term Pregnancies Multiple births Hx # Pregnancies Ectopic pregnancies AB induced Hx Number of Living Children AB spontaneous Vital Signs and Lab Results Vital Signs Most Recent Vital Signs in EMR: Temp Pulse Resp BP Pulse Ox 36.5 C 68 16 112/75 99 08/30/22 06:33 08/30/22 06:33 08/30/22 06:33 08/30/22 06:33 08/30/22 06:33 Lab Results Blood Type / Crossmatch: No Data to Display Complete Blood Count: No Data to Display Complete Metabolic Panel: No Data to Display Liver Function Panel: No Data to Display Coagulation Panel: No Data to Display Cardiac Panel: No Data to Display Arterial Blood Gas: No Data to Display Venous Blood Gas: No Data to Display Pancreas Panel: No Data to Display Thyroid Panel: No Data to Display Infectious Disease: No Data to Display Blood Cultures: No Data to Display Toxicology Panel: No Data to Display Panel: No Data to Display Imaging and Studies Imaging and Studies Study information below may be from another EMR and interpreted by another provider. Please see original notes in EMR for more complete details. Echocardiogram Summary: 12/2018: LVEF 65-70%, PAS 20-25 mmHg, normal RvFxn. Anesthesia Assessment and Plan Anesthesia History Personal History: No History of Anesthesia Complications Family History: No Family History of Anesthesia Complications Exercise Tolerance Exercise Tolerance: Metabolic Equivalents>4 Cardiac & Pulmonary Exam Cardiac Exam: Normal S1/S2 Heart Sounds Pulmonary Exam: Clear Bilateral Breath Sounds Implantable Cardiac Device Does patient have a Pacemaker or an ICD?: No Airway Exam Known Difficult Airway: No Mallampati Class: 2 Mouth Opening: Normal (> 3cm) Thyromental Distance: Greater than 3 cm Neck Range of Motion: Full ROM Neck Circumference: Normal Teeth Condition: Normal Dentition ASA Classification ASA Score: ASA 2 Emergency Case?: No NPO Status NPO Status: NPO Clears >2 hours, Solids >8 hours Status Status: Negative HCG Anesthesia Plan Resuscitation Status: Full Code Anesthesia Technique: General Anesthesia Airway Planned: Endotracheal Tube Pain Management: Surgeon and patient request nerve block Monitors Used: Standard Monitors Preoperative Comments:: 42 yo female for hip scope. Sig PMHx: anxiety/depression (bupropion), consussion, GERD, vertigo, former smoker, occ EtOH, s/p lumbar spine surgury. Discussed risks, benifits to GA with MAO +/- LFC blocks. has some numbness since her back injury that exists at the very distal end of the LFC nerve distribution vs common peronal distribtion. discussed risk of potneally making this worse, she is okay with proceeding.
[2022-08-30] VITALS (11 sets, daily range): BP systolic 91–112; BP diastolic 47–75; PULSE 57–70; RESP 12–21; TEMP 36.3–36.8; O2SAT 96–99; BMI 29.0
[2022-08-30] MEDS: Lactated Ringers 1,000 ML 30 ML IV (07:20)
[2022-08-30] MEDS: ceFAZolin 2 GM/50 ML BAG IVPB (07:35)
--- NOTE | 2022-08-30 08:18 | W.ANESNERVE ---
Nerve Block Single Injection Procedure Date and Time Date Performed: 08/30/22 Procedure Start: 07:48 Location Where Procedure Performed Procedure Location: Operating Room Procedure Stop: 07:58 Reason Performed: Postoperative Analgesia Requesting Provider: Todd Chavez Timeout Performed Timeout Performed: Yes Monitoring Used ECG, Blood Pressure, SpO2, ETCO2 and See EMR for corresponding vital signs Sterility Sterility: Hand Hygiene, Surgical Cap, Surgical Mask, Sterile Gloves and Chlorhexidine Sedation Given During Procedure Sedation Given (Indicate Dose Given): No Sedation given Patient Mental Status Patient Mental Status: Performed under general anesthesia Nerve Block 1st Nerve Block: Laterality: Right Block Type: MAO Needle / Catheter Used: 120mm SonoPlex II Local Anesthetic Bolus (Indicate Dose Given): None and Bupivacaine 0.5% Dose:: 15 mL Additives (Indicate Dose Given): Epinephrine to make 1:200,000 (5mcg/ml) Dose:: 75 mcg and Precedex Dose:: 52.5 mcg Ultrasound: Sterile probe cover and gel used Ultrasound Image Saved?: Yes Nerve Stimulator: Not Used Paresthesia: None Procedure Tolerated: No Complications Procedure Outcome: Successful Performed By: Tomi Lau 2nd Nerve Block: Laterality: Right Block Type: Other (lateral femoral cutaneous) Needle / Catheter Used: 120mm SonoPlex II Local Anesthetic Bolus (Indicate Dose Given): Bupivacaine 0.5% Dose:: 5 mL Additives (Indicate Dose Given): Epinephrine to make 1:200,000 (5mcg/ml) Dose:: 25 mcg and Precedex Dose:: 17.5 Ultrasound: Sterile probe cover and gel used Ultrasound Image Saved?: Yes Nerve Stimulator: Not Used Paresthesia: None Procedure Tolerated: No Complications Procedure Outcome: Successful Performed By: Tomi Lau
--- NOTE | 2022-08-30 09:00 | W.PM.OP ---
Operative Note Operative Note DATE OF PROCEDURE: 08/30/22 PRE-OP DIAGNOSIS: Right hip 1. Labral tear 2. Femoracetabular impingement 3. Iliotibial band syndrome 4. Trochanteric bursitis POST-OP DIAGNOSIS: same PROCEDURE: Right hip 1. Arthroscopic labral debridement, CPT# 92687 2. Arthroscopic femoroplasty, CPT# 47557 3. Endoscopic iliotibial band release, CPT# 35941 4. Endoscopic trochanteric bursectomy, CPT# 81213 SURGEON: Todd Chavez OPTICAL INSTRUMENT SPECIALIST: Purvi Dominguez ANESTHESIA TYPE: Local By Surgeon, General LMA/ETT and Primary Nerve Block (MAO) Refer to Anesthesia Record ESTIMATED BLOOD LOSS: 5 COMPLICATIONS: None Patient was transported to: PACU Patient's condition: stable Indications: Please see complete medical record for details. Findings: Complex degenerative?type anterior labral tear. Small femoral head neck prominence and localized cartilage thinning over bone cyst. Moderately thickened iliotibial band. Abundant inflamed trochanteric bursitis. Procedure Description: In the operating room, general and regional anesthesia were induced. The patient was positioned supine on the [place] table. All bony prominences were well-padded. Preoperative antibiotics were administered. The correct patient, procedure, and side of the procedure were all verified prior to incision. Initially, hip joint distraction arthrogram was set up. When reaching for these instruments, it was clear there were hairs on the sterile field. Unfortunately, this hip arthroscopy tray is the only one at this facility. I discussed with the patient's partner and consider options. The instruments were all taken out of the room and sent for sterile processing. The patient remained stable and positioned comfortably in the meanwhile. Traction post and boots were removed. All the necessary equipment would be ready and biologic testing could be completed in about 60 to 90 minutes. Though it was additional anesthesia time, the patient was already intubated, had regional anesthesia done, and had arranged her personal and work life for surgery today so we kept her safe and waited for the instruments to be cleaned. When everything was available and checked, we proceeded with the planned surgery. An additional cefazolin dose was administered close to the actual incision. 20 cc of 0.25% bupivacaine containing epinephrine was infiltrated about the planned portal sites. Fluoroscopically, an anterolateral portal was established with hip under about 1 cm distraction. Traction start time as noted. Through the spinal needle, a nitinol wire was inserted and the needle removed. An 11 blade was used to create a portal sized incision about the Nitinol wire. A small 4 mm dilator was passed atraumatically over the nitinol wire through the capsule into the hip joint. The nitinol wire was removed. A 6 mm dilator was then passed over the smaller one into the hip joint and the initial dilator removed. The blunt end of a switching stick was then passed into the hip joint and the last dilator removed. The camera sleeve was then inserted over the switching stick, the switching stick removed, and the arthroscope attached to the camera sleeve. An initial dry arthroscopy of the hip joint confirmed appropriate viewing portal location about the equator laterally. Using a combination of fluoroscopic guidance and arthroscopic triangulation a modified mid anterior portal was established in a similar fashion with a spinal needle and sequential dilators. Care was taken to ensure the portal was in an appropriate position and outside the labrum. A banana blade was inserted anteriorly over half pipe. The capsule was released distal to the labrum working towards the anterolateral portal. The camera was then switched to the anterior portal, the anterolateral portal location was confirmed to be appropriate, and the banana blade brought in the anterolateral portal and additional capsule opened here as well. The camera was then switched back to the anterolateral portal. A complete diagnostic arthroscopy of the hip was performed with relevant findings noted above. Rigid cannula was inserted anteriorly in preparation for potential repair. Attention was turned to the largely anterior labral tear. The obviously frayed unstable tissue was debrided with the mechanical shaver. The remaining tissue margin was smoothed and contoured using the radiofrequency ablator. The remainder of the labrum was probed and additional debridement performed slightly anteriorly and superiorly contouring the labrum into healthy tissue. The labrum resection was only mild to moderate. The remnant was probed and there is no additional instability or labral tearing. There was the mildest labral cartilage wave sign at the superior aspect of the tear but no appreciable separation between the labral and chondral layers. Decision was made to admit any additional labral surgery including repair of this now stable debrided labral tear. The blunt end of a switching stick was left in the anterior portal, but appropriately withdrawn from hip joint. The camera was withdrawn similarly. Under direct visualization traction was gradually released at 53. The femoral head neck junction was inspected about the zone of labral injury. There was good labral suction seal with the remnant. The hip was brought through internal rotation, external rotation, and deep flexion with rotation. There was an obvious zone of cartilage softening proximal to the small head neck prominence. The distal anterior lateral portal was established. A switching stick was used to retract the capsule distally through the anterior portal and the mechanical shaver used to resect unstable cartilage exposing bone softening about a small cystic area distal to the labral tear and contour the femoral head neck away from the labrum as part of a small femoroplasty. The limited capsulotomy had well apposed tissue ends and was not formally closed. The hip was drained of arthroscopic fluid. 10 cc of 0.25% bupivacaine containing epinephrine was infiltrated about the subcutaneous tissue and deeply over the greater trochanter. Under fluoroscopic guidance, a switching stick and arthroscope were inserted localizing the iliotibial band over the greater trochanter. Blunt dissection and the mechanical shaver were used to resect fat and overlying tissue about the center of the iliotibial band and carefully expose the anterior and posterior margins. Once there was adequate exposure of the IT band, the greater trochanter was again localized under fluoroscopic guidance with a spinal needle inserted through the skin down to bone. This central area was marked using the radiofrequency ablator. A [place] blade was brought in and used to create a 2 cm longitudinal incision in line with the IT band fibers as well as extending it in a cruciate fashion with 2 cm incisions anteriorly and posteriorly. The radiofrequency ablator was used to achieve hemostasis. The mechanical shaver was then used to debride the IT band released edges exposing the trochanteric bursa. The mechanical shaver was then used to excise the trochanteric bursa taking care to protect musculature about the margins of the greater trochanter as well as neurovascular structures especially posteriorly. There was poor visualization of the greater trochanter in usual gluteus medius and vastus lateralis landmarks due to the abundant hemorrhagic bursa. The hip was brought through range of motion including internal and external rotation and there was no impinging iliotibial band tissue. When all reasonable bursal tissue had been removed and greater trochanter margins confirmed bluntly and with fluoroscopy, the bursectomy was completed. Suction was used to remove fluid from the endoscopic space. The portals were closed using 3-0 Monocryl in a buried fashion. Steri-Strips were applied over the incisions followed by Xeroform, 4 x 4 gauze, an ABD pad and secured with tape. The patient awoke from anesthesia without complication and was transferred to the recovery room in a stable condition.
--- NOTE | 2022-08-30 11:15 | DI.RAD_ITS ---
Exam(s) XR HIP RT IN OR EXAM: XR HIP RT IN OR CLINICAL HISTORY: (1) Gluteal tendinitis of right buttock: TECHNIQUE: 2D and realtime digital imaging was performed. COMPARISON: No exams were available for comparison FINDINGS: C-arm fluoroscopy was utilized by Dr. hCavez. Please see the procedure note. IMPRESSION: RADIATION DOSE DELIVERED: maryjane Simmons=18.6 mGy
[2022-08-30] MEDS: Bupivacaine 0.5% Pres-Free W/EPI 30 ML VIAL (11:22)
--- NOTE | 2022-08-30 11:23 | W.PM.DSUDISC ---
Discharge Plan Disposition Patient Disposition: HOME Condition: Stable Discharge Details Reason For Visit: Right hip surgery Attending Provider: Todd Chavez Primary Care Provider: Altagracia Good Home Meds and New Rx's Prescriptions: New aspirin 81 mg tablet,delayed release (DR/EC) 81 mg PO DAILY 14 Days Qty: 14 0RF ondansetron 4 mg tablet,disintegrating 4 mg PO Q6H PRN (Reason: nausea or vomiting) Qty: 5 0RF oxycodone 5 mg tablet 5 - 10 mg PO Q4H MDD 30 mg PRN (Reason: moderate to severe pain) Qty: 18 0RF Continued magnesium oxide 500 mg capsule 500 mg PO .QOD Label Comments: Leg cramps riboflavin (vitamin B2) [Vitamin B-2] 100 mg tablet 100 mg PO DAILY Label Comments: Nerves Rx Instructions: 400 mg triamcinolone acetonide 0.1 % ointment 1 applic TP BID Qty: 80 0RF Rx Instructions: Mix with emollient of choice and apply to arms, legs, back, neck, head, trunk, hands BID until rash gone. Mirena 20 mcg/24 hr (5 years) intrauterine device 1 insert IY ONCE cholecalciferol (vitamin D3) 1,000 unit/drop drops 2,000 unit PO DAILY clobetasol 0.05 % shampoo 1 applic TP DAILY Qty: 118 0RF Rx Instructions: To apply to pruritic rash to scalp once daily x14 days. bupropion HCl 200 mg tablet sustained-release 12 hr 200 mg PO BID Qty: 180 3RF Rx Instructions: Dose increase 08/14/2021 amlodipine 5 mg tablet 5 mg PO DAILY Qty: 90 3RF Rx Instructions: Podiatry 12/2020 recommended Dramamine 25 mg tablet,chewable 50 mg PO PRN Rx Instructions: pt reported med. uses PRN, OTC if needed for motion sickness. acetaminophen [Acetaminophen Extra Strength] 500 MG tablet 500 mg PO TID PRN multivitamin [Daily Multi-Vitamin] 1 EACH tablet 1 ea PO DAILY clindamycin phosphate 1 % lotion 1 applic topical DAILY Qty: 60 0RF Discontinued ibuprofen 600 MG tablet 600 mg PO PRN Discharge Instructions Additional Instructions: Surgery: Right hip arthroscopy with labral debridement and femoroplasty and endoscopic iliotibial band release and trochanteric bursectomy Activity: Weightbearing as tolerated. May discontinue crutches as soon as comfortable. Avoid deep hip flexion for 4 weeks. No cutting, pivoting, or sports for 2-3 months. A physical therapy prescription will be sent electronically to start in about 3 weeks. Prescriptions: Aspirin 81 mg take 1 daily to prevent a blood clot for 14 days Naproxen 250 mg take 1-2 every 12 hours with a meal as needed for moderate pain Oxycodone 5 mg take 1-2 every 4-6 hours as needed for severe pain You may use [id number] Tylenol (acetaminophen) as needed for mild pain. These pain medications may be taken all at once or in different combinations as needed. Also, recommend Colace (docusate) as a stool softener as surgery and pain medicine cause constipation. You may try [id number] diphenhydramine (Benadryl) 25-50 mg nightly as a sleep aid Dressings: Leave dressing in place for 3 days. May then remove and leave open to air or cover incisions with Band-Aids. May shower after 5 days. Follow-up: 10-[address] Chavez You may take off the leg compression stockings this evening at home. You may also leave them on a few days longer if you have a history of leg swelling or edema. Let us know right away if you develop any redness, drainage, fevers, chest pain, or trouble breathing. Do not drink alcohol or drive for at least 24 hours after anesthesia. Please call the office during business hours with any questions or concerns. Discharge Orders Discharge Orders: Discharge Order (Routine); Ordered 08/30/22 Ordered By: Todd Chavez DS: Diagnosis Discharge Diagnosis (1) Labral tear of right hip joint: Status: Acute
[2022-08-30] MEDS: HYDROmorphone 2 MG/ML SYR IVP ×2 (12:13→12:21)
[2022-08-30] MEDS: Normal Saline 10 ML VIAL IJ (12:13)
[2022-08-30] MEDS: oxyCODONE 5 MG TAB PO (13:21)
--- NOTE | 2022-08-30 13:30 | W.ANESPOSTOP ---
Postoperative Evaluation Date, Time and Location Date Performed: 08/30/22 Time Performed: 13:30 Patient Location: Day Surgery Unit Vital Signs Most Recent Imported Vital Signs: Most Recent Vital Signs Temp Pulse Resp BP Pulse Ox 36.8 C 63 16 93/49 L 96 08/30/22 12:39 08/30/22 12:39 08/30/22 12:39 08/30/22 12:39 08/30/22 12:39 Pain Score Most Recent Pain Score: Most Recent Pain Score Pain Level 2 08/30/22 12:39 Assessment Mental Status: Arousable with meaningful communication Airway and Respiratory Function: Patent airway with normal (patient baseline) respiratory exam Cardiovascular Function: Hemodynamically Stable Hydration Status: Adequately Hydrated Nausea & Vomiting: No Nausea or Vomiting Pain: Pain is tolerable per patient Peripheral Nerve Block: Regional nerve block not resolved at time of post operative discharge
== END 2022-08-30 15:12 | disposition home or self-care (01) ==
PROVIDERS: PCP Nurse Practitioner Adult Health; Visit Provider Student in an Organized Health Care Education/Training Program
PROC: (CPT 29863; principal; 2022-08-30 07:30)
DX: M70.61 Trochanteric bursitis, right hip (principal); M24.151 Other articular cartilage disorders, right hip; M76.31 Iliotibial band syndrome, right leg; M25.851 Other specified joint disorders, right hip
CPT/HCPCS: 29914; 29862; 27062; 27305; 76942; 81025; 73501; J0131; J0171; J0690; J1100; J1170; J1885; J2250; J2405; J2704; J3475

== ENCOUNTER 2022-10-11 11:09 | Outpatient (REF) | payer OTHER, SELFPAY ==
[2022-10-11 16:01] LABS: Abs Immature Grans 0.02 10^3/uL (0.0-0.06); Absolute Basophil Count 0.05 10^3/uL (0.0-0.2); Absolute Eosinophil Count 0.13 10^3/uL (0.0-0.7); Absolute Lymphocyte Count 1.12 10^3/uL (1.2-3.4); Absolute Monocyte Count 0.88 10^3/uL (0.1-0.8); Absolute Neutrophil Count 7.19 10^3/uL (1.2-6.7); Basophils % 0.5; Eosinophils % 1.4; HCT 39.5 % (36.0-46.0); HGB 12.7 g/dL (11.2-15.7); Immature Grans % 0.2; Lymphocytes % 11.9; MCH 29.7 pg (27.0-33.0); MCHC 32.2 % (32.0-36.0); MCV 92 fL (80-95); MPV 9.3 fL (8.0-11.0); Monocytes % 9.4; Neutrophils % 76.6; Platelet Count 226 10^3/uL (130-400); RBC 4.28 10^6/uL (3.93-5.22); RDW 11.7 % (11.7-14.6); RDW-SD 39.8 fL; WBC 9.39 10^3/uL (4.4-10.8)
[2022-10-11 17:42] LABS: Mono Screening Negative (Negative)
== END 2022-10-11 11:10 | disposition home or self-care (01) ==
LOC: LBN 11:09
PROVIDERS: Student in an Organized Health Care Education/Training Program; PCP Nurse Practitioner Adult Health; Visit Provider Nurse Practitioner Adult Health
DX: J02.9 Acute pharyngitis, unspecified (principal); R09.81 Nasal congestion; R09.89 Other specified symptoms and signs involving the circulatory and respiratory systems; B34.9 Viral infection, unspecified; Z20.828 Contact with and (suspected) exposure to other viral communicable diseases
CPT/HCPCS: 80053; 85025; 86308

== ENCOUNTER 2023-05-07 08:29 | Outpatient (CLI) | payer OTHER, SELFPAY ==
--- NOTE | 2023-05-07 08:15 | DI.RAD_ITS ---
Exam(s) XR HIP RT COMPLETE AP PELVIS EXAM: XR HIP RT COMPLETE AP PELVIS CLINICAL HISTORY: Right hip pain. TECHNIQUE: 2D digital imaging was performed of the right hip. Three images were obtained. AP pelvis and lateral right hip views were obtained. COMPARISON: CR XR HIP RT COMPLETE AP PELVIS from 11/01/2021 FINDINGS: BONES: No acute fracture is present. No bony destructive lesion is seen. JOINTS: No dislocation present. The joint spaces are well maintained. The sacroiliac joints and symp hysis pubis are unremarkable. SOFT TISSUE: There is a tiny calcification adjacent to the greater trochanter likely reflecting calci fic tendinitis. There is an IUD in the pelvis. IMPRESSION: Calcific tendinitis adjacent to the right greater trochanter. Otherwise unremarkable right hip. DATA REPOSITORY: RADIATION DOSE DELIVERED:
== END 2023-05-07 08:30 | disposition home or self-care (01) ==
LOC: DIORS 08:29
PROVIDERS: PCP Nurse Practitioner Adult Health; Referring Provider Nurse Practitioner Adult Health; Visit Provider Student in an Organized Health Care Education/Training Program
DX: S73.191D Other sprain of right hip, subsequent encounter; S84.91XD Injury of unspecified nerve at lower leg level, right leg, subsequent encounter; X58.XXXD Exposure to other specified factors, subsequent encounter; M65.251 Calcific tendinitis, right thigh
CPT/HCPCS: 73502

== ENCOUNTER 2023-05-13 00:41 | Outpatient (CLI) | payer OTHER, SELFPAY ==
--- NOTE | 2023-05-13 14:30 | DI.MRI_ITS ---
Exam(s) MR LOWER JOINT RT WO EXAM: MR LOWER JOINT RT WO CLINICAL HISTORY: R HIP PAIN,TROCHANTERIC BURSITIS,LABRAL TEAR RT HIP JOINT,M70.61,S73.191A TECHNIQUE: Multiplanar multisequence MRI of the hip was performed. COMPARISON: CR XR HIP RT COMPLETE AP PELVIS from 05/07/[address] ABDOMEN PELVIS W from 05/08/2023 FINDINGS: MARROW:There is no evidence of fracture, bone contusion, nor avascular necrosis. There are no signif icant osseous lesions.There is no significant osseous excrescence at the femoral head-neck junction t o suggest the presence of cam-type JAMISON. EFFUSION: There is no evidence of joint effusion. SOFT TISSUE/BURSAE: There is a abnormality in the gluteus medius insertional tendon side as well as j ust lateral to the greater trochanter consistent with element of tendinitis-mild bursitis. There is also a sliver of fluid more laterally which exactly corresponds to linear air seen on the CT scan of 05/08/2023 and may correspond to prior therapeutic injection site path. HIP JOINT SPACE: No obvious chondral defects.There is no hypertrophy of the ligamentum teres nor sign al abnormality at the fovea centralis. LABRUM: There is no evidence of obvious labral tear nor evidence of paralabral cyst. ISCHIAL TUBEROSITY/HAMSTRING: There is no abnormal intraosseous signal in the ipsilateral ischial tub erosity nor tear of the common hamstrings tendon attachment site at this level. OTHER: There is no abnormal intramuscular signal within the quadratus femoris to suggest the presence of impingement syndrome at this level. IMPRESSION: 1. Findings are consistent with tendinitis/mild bursitis findings adjacent to the greater trochanter. There is also linear fluid signal slightly lateral to this level which appears to be along a pathwa y of possible prior injection site. 2. Minimal if any significant degenerative changes in the hip joint. No abnormal intraosseous signal in the femoral head and neck. No evidence of avascular necrosis. 3. No obvious labral tear. No evidence of paralabral cyst. DATA REPOSITORY:
== END 2023-05-13 01:01 ==
LOC: DI 00:42
PROVIDERS: PCP Nurse Practitioner Adult Health; Visit Provider Student in an Organized Health Care Education/Training Program
DX: M70.61 Trochanteric bursitis, right hip (principal); S73.191A Other sprain of right hip, initial encounter; X58.XXXA Exposure to other specified factors, initial encounter
CPT/HCPCS: 73721

== ENCOUNTER 2023-06-23 11:21 | Outpatient (CLI) | payer OTHER, SELFPAY ==
[2023-06-23 11:27] VITALS: BP 110/61; PULSE 63; RESP 20; TEMP 36.3; O2SAT 97
[2023-06-23 12:10] VITALS: PULSE 68; O2SAT 95
[2023-06-23] MEDS: methylPREDNISolone ACETATE 40 MG/ML VIAL IJ (12:26)
[2023-06-23] MEDS: Bupivacaine 0.5% Pres-Free 10 ML VIAL IJ (12:26)
--- NOTE | 2023-06-23 12:36 | PDOC.PAIN ---
Date of service: 06/23/23 Time of Service: 12:00 Pain Managment Procedure Note Procedure Note Procedure Note: PROCEDURE NOTE ULTRASOUND-GUIDED RIGHT HIP TROCHANTERIC BURSA INJECTION Date of Service: June 23, 2023 Patient: Janey Zapata Provider: Fabio Jim DO, MPH Pre-operative diagnosis: Lateral hip pain Post-operative diagnosis: Same Pre-procedure pain: VAS= 4/10 COMMENTS: She is a direct referral for this procedure by her orthopedic surgeon. She does have right lateral hip area pain as well as right gluteal and SIJ area pain. Janey Zapata has been referred to the [facility] for an ultrasound-guided RIGHT trochanteric bursa injection. Janey was interviewed and the medical record reviewed. There were no medical, pharmacologic, radiographic or other structural contraindications to attempting a ultrasound-guided trochanteric bursa injection. Risks and potential side effects as well as potential benefit of the procedure were reviewed with Ms. Zapata, and her voiced concerns were addressed. After verbal informed consent was obtained, the printed consent form was signed. Standard time-out procedure was performed. Janey was placed in the lateral recumbant position on the procedure table with the affected side up. Next, automated blood pressure cuff and pulse oximeter applied. The skin entry point for approaching the RIGHT trochanteric bursa was identified under the most advantageous ultrasound view and marked. Following thorough Chlorhexadine preparation of the skin and draping and 1% lidocaine infiltration of the skin entry point and subcutaneous tissues, a 25 gauge spinal needle was placed under ultrasound guidance using an in-plane view to numb the skin with 2 cc of 1% Lidocaine. Next a pajunk ultrasound needed was placed under ultrasound guidance down to the trochanteric bursa. 40 mg of Depo medrol (40 mg/cc) was injected into the bursa with an initial reproduction of a significant component of the usual pain and hydrodisection in the trochanteric bursa. Next, 3 ml of 1% Lidocaine was injected into the bursa. The needle was then removed without difficulty. Janey's vital signs were stable throughout the procedure and were as recorded in the docflowsheet by the nursing staff. If given, dosages of intravenous drugs for anxiolysis and analgesia were documented in MAR. Follow up plans and appointments were discussed with the Janey. Post procedure instruction was given as documented in nursing documentation and having met discharge criteria, Janey was discharged from the [facility]. COMMENTS: No apparent complications. Post-procedure pain;VAS= 0/10 to the right lateral hip pain, right buttock pain and right SIJ area pain. The patient understands that she should be nearly [id number] over the next 7 days. After that he will concentrate of gluteal muscle and IT band stretching for 2 weeks. At 3 weeks post-procedure, Janey can start toning exercises for the gluteal muscles. She had a very large right Gluteus Medius tendon with apparent calcifications. F/U with our office and/or orthopedics I personally performed this entire procedure. Fabio Jim DO, MPH ABPMR-subspecialty board certification in Pain Medicine Attending Physician-Pain Management
== END 2023-06-23 11:22 | disposition home or self-care (01) ==
PROVIDERS: PCP Nurse Practitioner Adult Health; Visit Provider Preventive Medicine Occupational Medicine
DX: M70.61 Trochanteric bursitis, right hip (principal)
CPT/HCPCS: 20611; J1030

== ENCOUNTER 2023-07-23 04:19 | Outpatient (CLI) | payer OTHER, SELFPAY ==
[2023-07-23 14:13] LABS: Abs Immature Grans 0.01 10^3/uL (0.0-0.06); Absolute Basophil Count 0.02 10^3/uL (0.0-0.2); Absolute Eosinophil Count 0.06 10^3/uL (0.0-0.7); Absolute Lymphocyte Count 1.53 10^3/uL (1.2-3.4); Absolute Monocyte Count 0.47 10^3/uL (0.1-0.8); Absolute Neutrophil Count 3.06 10^3/uL (1.2-6.7); Basophils % 0.4; Eosinophils % 1.2; HCT 38.1 % (36.0-46.0); Immature Grans % 0.2; Lymphocytes % 29.7; MCHC 34.1 % (32.0-36.0); MCV 88 fL (80-95); MPV 9.1 fL (8.0-11.0); Monocytes % 9.1; Neutrophils % 59.4; Platelet Count 198 10^3/uL (130-400); RBC 4.33 10^6/uL (3.93-5.22); RDW 11.9 % (11.7-14.6); RDW-SD 38.5 fL; WBC 5.15 10^3/uL (4.4-10.8)
[2023-07-23 14:22] LABS: ESR 6 mm/hr (0-20)
[2023-07-23 14:58] LABS: C-Reactive Protein 0.05 mg/dL (0.0-0.3)
[2023-07-23 22:03] LABS: Rheumatoid Factor <8.6 IU/mL (<12.0)
[2023-07-24 09:45] LABS: Cyclic Citrullinated Peptide <2.5 U/mL (<5.0)
[2023-07-24 11:05] LABS: Lyme Ab w Rflx to Lyme Confirm Negative (Negative)
[2023-07-24 15:07] LABS: ANA Interpretation Negative (Negative)
[2023-07-25 21:04] LABS: Anaplasma phagocytophilum Negative (Negative); B. miyamotoi PCR Negative (Negative); Babesia divergens/MO-1 Negative (Negative); Babesia duncani Negative (Negative); Babesia microti Negative (Negative); Ehrlichia chaffeensis Negative (Negative); Ehrlichia ewingii/canis Negative (Negative); Ehrlichia muris eauclairensis Negative (Negative)
== END 2023-07-23 04:20 | disposition home or self-care (01) ==
LOC: LBO 04:19
PROVIDERS: PCP Nurse Practitioner Adult Health; Visit Provider Student in an Organized Health Care Education/Training Program
DX: M70.61 Trochanteric bursitis, right hip (principal); M25.551 Pain in right hip
CPT/HCPCS: 36415; 85652; 86200; 87798; 85025; 86038; 86140; 86431; 86618

== ENCOUNTER 2023-08-27 09:42 | Outpatient (CLI) | payer OTHER, SELFPAY ==
--- NOTE | 2023-08-27 07:15 | DI.RAD_ITS ---
Exam(s) XR PAIN CLINIC SACRIOILIAC 2V EXAM: XR PAIN CLINIC SACRIOILIAC 2V CLINICAL HISTORY: Sacroiliac Joint Dysfunction TECHNIQUE: 2D and realtime digital imaging was performed. CONTRAST MATERIAL: Refer to procedure report. COMPARISON: No exams were available for comparison FINDINGS: Fluoroscopy was provided for Dr. Jim during the performance of a right SI joint injection. Please refer to the procedure report for complete details. Ka,r=6.81 mGy IMPRESSION:
[2023-08-27 10:12] VITALS: BP 126/81; PULSE 78; RESP 20; TEMP 36.1; O2SAT 97
[2023-08-27] MEDS: Omnipaque 240 MG/ML 50 ML BTL IJ (10:36)
[2023-08-27] MEDS: methylPREDNISolone ACETATE 80 MG/ML VIAL IJ (10:36)
[2023-08-27 10:44] VITALS: BP 118/82; PULSE 68; RESP 21; O2SAT 99
--- NOTE | 2023-08-27 10:44 | PDOC.PAIN ---
Date of service: 08/27/23 Time of Service: 10:44 Pain Managment Procedure Note Procedure Note Procedure Note: PROCEDURE NOTE RIGHT INTRA-ARTICULAR SACROILIAC JOINT INJECTION Date of Service: August 27, 2023 Patient: Janey Zapata Provider: Fabio Jim DO, MPH COMMENTS: I previously evaluated the patient in the office and their symptoms in relation to the sacroiliac joint pain have remained the same. Pre-operative diagnosis: Sacroiliac joint dysfunction Post-operative diagnosis: Same Pre-procedure pain: VAS= 4/10 Janey Zapata has been referred to [facility] for a Right intra-articular Sacroiliac joint injection. Janey was interviewed and the medical record reviewed. There were no medical, pharmacologic, radiographic or other structural contraindications to attempting a fluoroscopically-guided, contrast-enhanced, intra-articular Sacroiliac joint injection. The risks, benefits, and potential side effects of this procedure were reviewed with the patient. Questions and concerns were addressed. After it was clear that Janey was fully informed about the procedure, the printed consent form was signed by the patient and myself. Janey was placed in the prone position on the fluoroscopy table and an automated blood pressure cuff, 3 lead EKG, and pulse oximeter were applied. The skin entry point for approaching the Right sacroiliac joint was identified under the most advantageous fluoroscopic view and marked. Following thorough Chlorhexadine preparation of the skin and draping with sterile surgical drapes, 2 mls of 1% lidocaine was infiltrated into the skin at the entry point and the surrounding subcutaneous tissues. Next, a 3.5 22G spinal needle was placed under fluoroscopic guidance into the Right sacroiliac joint. Intra-articular placement was confirmed by a clear arthrogram resulting from the injection of 0.25ml of Omnipaque-240. Next, 1 ml of Depo- Medrol 80 mg/ml was injected intra-articularly with an initial reproduction of a significant component of the usual pain. This was followed with 1 ml of 1% Lidocaine. The needle was then removed without difficulty. (49 ml of Omnipaque-240 was wasted). Janey's vital signs were stable throughout the procedure and were as recorded in nursing records. Follow up plans and appointments were discussed with Janey. Post procedure instructions were given as documented in nursing records. Having met discharge criteria, Janey was [facility] from the [facility]. COMMENTS: Post-procedure pain: VAS= 0/10. If the patient receives at least 50% improvement in pain and/or function for at least 3 months, this procedure can be repeated if needed. I personally performed this entire procedure. FABIO JIM DO, MPH ABPMR-subspecialty board certification in Pain Medicine [facility]
== END 2023-08-27 09:43 | disposition home or self-care (01) ==
PROVIDERS: PCP Nurse Practitioner Adult Health; Visit Provider Preventive Medicine Occupational Medicine
DX: M46.1 Sacroiliitis, not elsewhere classified (principal)
CPT/HCPCS: 27096; 72200; J1040; Q9967

== ENCOUNTER 2023-09-11 12:32 | Emergency (ER) | payer OTHER, SELFPAY ==
[2023-09-11] VITALS (32 sets, daily range): BP systolic 88–133; BP diastolic 42–76; PULSE 58–70; RESP 7–25; TEMP 36.5; O2SAT 92–100
--- NOTE | 2023-09-11 12:45 | RT.EKG_ITS ---
APPROVED REPORT Exam: Resting ECG Reason for Exam: Dizziness Patient Location: E HR:65 bpm ECG Measurements Heart Rate 65 AXIS DC 166 P 18 QRSd 88 QRS 85 QT 425 T 69 QTc 442 Conclusion Sinus rhythm...normal P axis, V-rate 60- 99 Anteroseptal infarct, age indeterminate...Q >35mS, T neg, V1-V2
[2023-09-11 13:18] LABS: Absolute Basophil Count 0.02 10^3/uL (0.0-0.2); Absolute Eosinophil Count 0.05 10^3/uL (0.0-0.7); Absolute Lymphocyte Count 1.35 10^3/uL (1.2-3.4); Absolute Monocyte Count 0.46 10^3/uL (0.1-0.8); Absolute Neutrophil Count 3.79 10^3/uL (1.2-6.7); Basophils % 0.4; Eosinophils % 0.9; HCT 41.3 % (36.0-46.0); HGB 13.9 g/dL (11.2-15.7); Lymphocytes % 23.8; MCH 29.7 pg (27.0-33.0); MCHC 33.7 % (32.0-36.0); MCV 88 fL (80-95); Monocytes % 8.1; Neutrophils % 66.8; Platelet Count 224 10^3/uL (130-400); RBC 4.68 10^6/uL (3.93-5.22); RDW 11.8 % (11.7-14.6); RDW-SD 37.7 fL; WBC 5.67 10^3/uL (4.4-10.8)
[2023-09-11] MEDS: diazePAM 10 MG/2 ML SYR 5 MG IVP (13:23)
[2023-09-11] MEDS: Lactated Ringers 1,000 ML 1000 ML IV (13:24)
[2023-09-11 13:57] LABS: HCG Qual (Serum) Negative
[2023-09-11 14:24] LABS: ALT 25 U/L (14-59); AST 15 U/L (15-37); Albumin 4.2 g/dL (3.4-5.0); Alkaline Phosphatase 55 U/L (46-116); Anion Gap 8.2 mmol/L (3-11); BUN 9 mg/dL (7-18); Bilirubin, Total 0.3 mg/dL (0.2-1.0); CO2 27.8 mmol/L (21.0-32.0); CREATININE 0.8 mg/dL (0.55-1.02); Calcium 9.2 mg/dL (8.5-10.1); Chloride 104 mmol/L (98-107); Estimated GFR 94.87 (mL/min/1.73m2); Glucose 88 mg/dL (74-106); Magnesium 2.2 mg/dL (1.8-2.4); Sodium 140 mmol/L (136-145); Total Protein 7.8 g/dL (6.4-8.2); Troponin I < 50 ng/L (<or=60)
[2023-09-11] MEDS: Prochlorperazine 10 MG/2 ML VIAL 5 MG IVP (15:02)
[2023-09-11] MEDS: Acetaminophen 500 MG TAB 1000 MG PO (15:02)
--- NOTE | 2023-09-11 15:38 | W.ED.GENAD ---
Discharge Plan Disposition Patient Disposition: Home Discharge Details Clinical Impression: Benign paroxysmal positional vertigo Primary Care Provider: Altagracia Good ED Provider: Aaliyah Blanton Home Meds and New Rx's Prescriptions: New diazepam [Valium] 5 mg tablet 5 mg PO BID PRNQty: 10 0RF Continued magnesium oxide 500 mg capsule 500 mg PO .QOD Patient Comments: Leg cramps riboflavin (vitamin B2) [Vitamin B-2] 100 mg tablet 100 mg PO DAILY Patient Comments: Nerves Rx Instructions: 400 mg triamcinolone acetonide 0.1 % ointment 1 applic TP BID Qty: 80 0RF Rx Instructions: Mix with emollient of choice and apply to arms, legs, back, neck, head, trunk, hands BID until rash gone. cholecalciferol (vitamin D3) 1,000 unit/drop drops 2,000 unit PO DAILY Dramamine 25 mg tablet,chewable 50 mg PO PRN Rx Instructions: pt reported med. uses PRN, OTC if needed for motion sickness. amlodipine 5 mg tablet 5 mg PO DAILY PRN (Reason: Raynauds) Rx Instructions: Podiatry 12/2020 recommended acetaminophen [Acetaminophen Extra Strength] 500 MG tablet 500 mg PO TID PRN multivitamin [Daily Multi-Vitamin] 1 EACH tablet 1 ea PO DAILY clindamycin phosphate 1 % lotion 1 applic topical DAILY Qty: 60 0RF bupropion HCl 200 mg tablet sustained-release 12 hr 200 mg PO BID Qty: 180 3RF Rx Instructions: Dose increase 08/14/2021 meclizine 25 mg tablet 25 mg PO BID-QID PRN (Reason: dizziness) Qty: 30 3RF ondansetron 4 mg tablet,disintegrating 4 mg PO NOW Qty: 1 0RF Discharge Instructions Additional Instructions: Please follow-up with PCP as needed, return earlier should you have new or worsening complaints Valium every 8 hours as needed for dizziness Stand Alone Forms: Work Release Referrals: Altagracia Good, [employer] [Primary Care Provider] - Discharge Data Discharge Date/Time-TO BE ENTERED AT DEPARTURE: 09/11/23 16:40 Medical Decision Making 43-year-old female presenting with dizziness that started abruptly approximately 2 hours prior to assessment while she was sitting in a meeting On exam cranial nerves II through XII are intact, she has left beating nystagmus horizontal, she is alert and oriented, she is able to ambulate, she does not have pronator drift, negative [id number], negative heel smith, strength and sensation are intact all 4 extremities Patient was given 5 mg of Valium and Scout was performed with mild minimal relief in symptoms, secondary to ED capacity and likely need for repeat Scout maneuver and assessment, PT was consulted and is performing Scout maneuver in the emergency department, patient is sitting up in the bed and feeling marked improvement in symptoms Return precautions reviewed and patient expressed understanding HPI General Date/Time Provider Initiated Documentation: 09/11/23 12:52. HPI Narrative: 43-year-old female presenting with acute onset of dizziness while sitting at a meeting. She states she has had intermittent episodes that have presented as seasickness in the past. But nothing as persistent as today. She took Zofran and meclizine prior to assessment. Has been she did not have significant improvement of her symptoms with these medications. She denies any significant headache. She denies any nausea or vomiting associated. She states she feels as though the room is spinning around her almost like she is on a boat when she has been seasick in the past. She denies any recent neck manipulations. She denies any weakness vision change, or sensation change/speech change. Related Data Home Medications Medication Instructions Recorded Confirmed acetaminophen 500 mg tablet 500 mg PO TID PRN 12/11/16 09/11/23 (Acetaminophen Extra Strength) multivitamin (Daily Multi-Vitamin 1 ea PO DAILY 12/11/16 09/11/23 tablet) cholecalciferol (vitamin D3) 25 2,000 unit PO DAILY 01/07/20 09/11/23 mcg/drop (1,000 unit/drop) oral drops triamcinolone acetonide 0.1 % 1 applic topical BID #80 grams 03/15/20 09/11/23 topical ointment magnesium oxide 500 mg capsule 500 mg PO .QOD 05/29/20 09/11/23 riboflavin (vitamin B2) 100 mg 100 mg PO DAILY 05/29/20 09/11/23 tablet (Vitamin B-2) dimenhydrinate 25 mg chewable 50 mg PO PRN 05/15/22 09/11/23 tablet (Dramamine) clindamycin phosphate 1 % lotion 1 applic topical DAILY #60 mL 06/07/22 09/11/23 bupropion HCl 200 mg tablet,12 hr 200 mg PO BID #180 tabs 01/02/23 09/11/23 sustained-release amlodipine 5 mg tablet 5 mg PO DAILY PRN Raynauds 04/22/23 09/11/23 diazepam 5 mg tablet (Valium) 5 mg PO BID PRN #10 tabs 09/11/23 meclizine 25 mg tablet 25 mg PO BID-QID PRN dizziness #30 09/11/23 09/11/23 tabs ondansetron 4 mg disintegrating 4 mg PO NOW #1 tab 09/11/23 09/11/23 tablet Previous Rx's Medication Instructions Recorded triamcinolone acetonide 0.1 % 1 applic topical BID #80 grams 03/15/20 topical ointment clindamycin phosphate 1 % lotion 1 applic topical DAILY #60 mL 06/07/22 bupropion HCl 200 mg tablet,12 hr 200 mg PO BID #180 tabs 01/02/23 sustained-release diazepam 5 mg tablet (Valium) 5 mg PO BID PRN #10 tabs 09/11/23 meclizine 25 mg tablet 25 mg PO BID-QID PRN dizziness #30 09/11/23 tabs ondansetron 4 mg disintegrating 4 mg PO NOW #1 tab 09/11/23 tablet Allergies Allergy/AdvReac Type Severity Reaction Status Date / Time vancomycin Allergy Intermediate Rash Verified 08/27/23 10:18 oxycodone HCl [From Percocet] AdvReac Unknown GI Upset Verified 08/27/23 10:18 General Stated Complaint: Dizzy/Sync JADEN: 3 PFSH All Active Problems (Updated 09/11/23 @ 15:44 by GARRISON Beltran) Benign paroxysmal positional vertigo (Acute) Postprandial abdominal pain in right upper quadrant (Acute) Ilioinguinal neuralgia of right side (Acute) Sacroiliac joint dysfunction of right side (Acute) Ischial bursitis of right side (Acute) LLQ abdominal pain (Acute) Injury of nerve of right lower extremity (Acute) Trochanteric bursitis of right hip (Acute) Labral tear of right hip joint (Acute ~03/2021) Raynauds disease (Acute) Podiatry 12/2020; RX Amlodipine Elevated serum creatinine (Acute) Vitamin D deficiency (Acute) Anxiety (Chronic) IUD surveillance (Acute 01/03/16) Mirena IUD placed 07/2012, replaced 09/04/18 Medical History Concussion With post-concussive syndrome; FMLA Cyst of right breast Degeneration of lumbar intervertebral disc with acute herniation (11/28/16) s/p 2 back surgeries Depression Folliculitis (11/28/16) GERD (gastroesophageal reflux disease) (11/28/16) Gluteal tendinitis of right buttock Incomplete bladder emptying Insomnia (11/28/16) Kidney stone Low back pain (11/28/16) Lower extremity edema Lumbar radicular syndrome (11/28/16) Numbness in right leg s/p neurosurgery x2 (posterior R knee and last 2 toes, foot pad) Pelvic congestion syndrome Post concussive syndrome Post laminectomy syndrome (11/28/16) Pruritic rash Derm ([place]); Biopsy ([place]) Vertigo (11/28/16) Surgical History Discectomy (03/29/11) (R) L5-S1 microsurg decom discectomy - 2nd Surgery (R) L5-S1 discectomy and decompression 02/11 History of hip surgery (~08/2022) [facility]--1. Arthroscopic labral debridement, CPT# 58663 2. Arthroscopic femoroplasty, CPT# 34254 3. Endoscopic iliotibial band release, CPT# 24776 4. Endoscopic trochanteric bursectomy, CPT# 31290 laminectomy (12/11/12) Dr. Santoyo 2011-[place], [place] Family History Mother Essential hypertension Arthritis Depression Hyperlipidemia Psoriasis Anxiety Heart disease Hypertension Brother Alcohol abuse Anxiety Depression Mental disorder Grandfather Essential hypertension Heart disease Hyperlipidemia Neoplasm Grandmother Essential hypertension Depression Heart disease Hyperlipidemia Emphysema lung Anxiety Cancer Hypertension Father Alcohol abuse Social History Smoking/Tobacco Use Status: Former Tobacco Use Smoking risk assessment performed?: Yes Alcohol Intake: current Alcohol Intake frequency: a few times a month Alcohol type: hard liquor Drug use: Never Substance use type: does not use Adopted: No Caregiver/Support person: No Foster care: No Household members: spouse and children Housing: house Number of Children: 2 Communication Needs: None Education Level: college 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 Pets and animals: Yes Pets and animals: cat(s) Sexually active: Yes Do you think of yourself as: straight/heterosexual Current gender identity: female What is your relationship status?: How often do you talk on the phone with friends or family?: once per week Do you belong to any clubs or organized social groups?: yes Panel score (0-1 are the most socially isolated patients): 2 What type of physical activity do you participate in: bicycling, regular exercise, swimming and resistance training Duration: 60-90 minutes/day Frequency: 5-6 times per week Special miki needs: No Seatbelt use: always Helmet use: Yes Drive intox or ride w/intox racing car driver: No Working smoke detector in home: Yes Fire extinguisher in home: Yes Carbon monox detector in home: Yes Firearms in home: No Do you feel safe at home: Yes Do you feel safe in your relationship?: Yes Victim of physical abuse: No Victim of emotional abuse: No Victim of sexual abuse: No Female Reproductive History Menstrual control method: progestin IUCD (Mirena lot# [id number] exp 01/2021) History History 2 Para Hx # Term Pregnancies Multiple births Hx # Pregnancies Ectopic pregnancies AB induced Hx Number of Living Children AB spontaneous Course Vital Signs Vital signs: Vital Signs Temperature 36.5 C 09/11/23 12:36 Pulse 65 09/11/23 12:36 Respiratory Rate 18 09/11/23 12:36 Blood Pressure 133/68 09/11/23 12:36 Pulse Oximetry 99 09/11/23 12:36 Temperature 36.5 C 09/11/23 12:36 Pulse 65 09/11/23 12:36 Respiratory Rate 18 09/11/23 12:40 Respiratory Effort Normal 09/11/23 12:40 Respiratory Depth Normal 09/11/23 12:40 Respiratory Pattern Normal 09/11/23 12:40 Blood Pressure 133/68 09/11/23 12:36 Pulse Oximetry 99 09/11/23 12:50 Oxygen Delivery Method Room Air 09/11/23 12:36 Oxygen Flow Rate 0 09/11/23 12:36 Lab/Test Results Lab/Test Results: Laboratory Tests Range/Units 09/11/23 13:10 WBC (4.4-10.8) 10^3/uL 5.67 RBC (3.93-5.22) 10^6/uL 4.68 Hgb (11.2-15.7) g/dL 13.9 Hct (36.0-46.0) % 41.3 MCV (80-95) fL 88 MCH (27.0-33.0) pg 29.7 MCHC (32.0-36.0) % 33.7 RDW (11.7-14.6) % 11.8 Plt Count (130-400) 10^3/uL 224 MPV (8.0-11.0) fL 9.0 Immature Gran % 0.0 Neutrophils % 66.8 Lymphocytes % 23.8 Monocytes % 8.1 Eosinophils % 0.9 Basophils % 0.4 Nucleated RBC % (0.0-0.3) % 0.0 Absolute Neutrophils (1.2-6.7) 10^3/uL 3.79 Absolute Lymphocytes (1.2-3.4) 10^3/uL 1.35 Absolute Monocytes (0.1-0.8) 10^3/uL 0.46 Absolute Eosinophils (0.0-0.7) 10^3/uL 0.05 Absolute Basophils (0.0-0.2) 10^3/uL 0.02 Sodium (136-145) mmol/L 140 Potassium (3.5-5.1) mmol/L 4.0 Chloride (98-107) mmol/L 104 Carbon Dioxide (21.0-32.0) mmol/L 27.8 Anion Gap (3-11) mmol/L 8.2 BUN (7-18) mg/dL 9 Creatinine (0.55-1.02) mg/dL 0.8 Est GFR (CKD-EPI 2020) (mL/min/1.73m2) 94.87 Glucose (74-106) mg/dL 88 Calcium (8.5-10.1) mg/dL 9.2 Magnesium (1.8-2.4) mg/dL 2.2 Total Bilirubin (0.2-1.0) mg/dL 0.3 AST (15-37) U/L 15 ALT (14-59) U/L 25 Alkaline Phosphatase (46-116) U/L 55 Troponin I (<or=60) ng/L < 50 Total Protein (6.4-8.2) g/dL 7.8 Albumin (3.4-5.0) g/dL 4.2 Serum HCG, Qual Negative
--- NOTE | 2023-09-11 17:03 | IN_ITS ---
PT Notes Inpatient Physical Therapy Evaluation Date: 09/11/23 Referring Doctor: GARRISON Bucio PT Orders: PT CONSULT: vertigo Precautions: standard Patient Profile/Admitting Diagnosis: Patient presented to ER with c/o dizziness beginning 2 hours prior while sitting in a meeting. Neuro screen by GARRISON was negative, and PT consult was requested for assessment of vertigo. Took dose of Meclizine and Zofran prior to PT arrival. Social History/Home Situation: Active and independent. 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. Resides in private home with her and their two children. Equipment Owned/DME: none Subjective: Janey states that she became acutely dizzy about 2 hours ago while sitting in a meeting. She was turning her head back and forth as people spoke, and began experiencing severe, room-spinning dizziness. States that she felt as though she was getting tossed around by a wave. She was able to ambulate to the ER with assistance, stating she was very off balance. She denies visual changes, hearing changes, tinnitus, numbness or tingling. No nausea or vomiting. No prior episodes of dizziness. No recent trauma. Objective: General Observation: Resting in bed with head elevated, lights dim. IV In RUE. Mental Status: A&Ox3. Pain: denies ROM: Right Upper Extremity: WFL Left Upper Extremity: WFL Right Lower Extremity: WFL Left Lower Extremity: WFL Cervical motion full and non-symptom provoking with slow movements Bed Mobility/Transfers: guarded head movements, but Independent with all bed mobility and transfers Special Tests: Rhomberg: (+) for posterlateral sway to left Visual Tracking: Normal, and without nystagmus in end-range of gaze Saccades are normal, with good accuracy and consistency Test of Skew is normal Buckland-Halpike is (+) to the left, with left torsional nystagmus sustained x 20 seconds Informed Consent/Education: Patient instructed in purpose of PT consult and plan of care. Treatment: Initial Evaluation (86243) Neuomuscular Re-education (26838): Assisted through left Scout Maneuver for 3 reps, 90 second holds. She has diminished symptoms on each repetition, although brief low amplitude, low velocity left torsional nystagmus remains present on 3rd rep. Post-treatment, she's able to ambulate independently, Assessment: Patient is a 43 year old female referred to physical therapy services with the diagnosis of vertigo. Patient presents with clinical signs and symptoms consistent with left posterior canal BPPV, as demonstrated by the following impairment level findings: 1. Acute onset vertigo 2. balance impairment Impairments are contributing to the following functional limitations: 1. severe dizziness with head movements 2. dizziness with bed mobility Patient is assessed as Low 70621 complexity based on the following: History: Active and independent 43 year old female presenting with acute onset dizziness, with s/s consistent with left posterior canal BPPV. Responded favorably to treatment with Scout Maneuver. Appropriate for discharge home without services once deemed medically stable. Examination: functional limitations as noted above Presentation: stable Decision Making: low Plan of Care/Treatment Plan: Discharge Home. Instructed in post-treatment precautions (sleep with head elevated to 45*, no quick head movements or bending over x 24 hours), with return to normal activity tomorrow if tolerated. DISCHARGE RECOMMENDATIONS: Home with no services TREATMENT CODE/TIME: [id number] ([id number], [id number]) Caren Butts, PT, DPT [facility] All Active Problems (Updated 09/11/23 @ 15:44 by GARRISON Beltran) Benign paroxysmal positional vertigo (Acute) Postprandial abdominal pain in right upper quadrant (Acute) Ilioinguinal neuralgia of right side (Acute) Sacroiliac joint dysfunction of right side (Acute) Ischial bursitis of right side (Acute) LLQ abdominal pain (Acute) Injury of nerve of right lower extremity (Acute) Trochanteric bursitis of right hip (Acute) Labral tear of right hip joint (Acute ~03/2021) Raynauds disease (Acute) Podiatry 12/2020; RX Amlodipine Elevated serum creatinine (Acute) Vitamin D deficiency (Acute) Anxiety (Chronic) IUD surveillance (Acute 01/03/16) Mirena IUD placed 07/2012, replaced 09/04/18 Medical History Concussion With post-concussive syndrome; FMLA Cyst of right breast Degeneration of lumbar intervertebral disc with acute herniation (11/28/16) s/p 2 back surgeries Depression Folliculitis (11/28/16) GERD (gastroesophageal reflux disease) (11/28/16) Gluteal tendinitis of right buttock Incomplete bladder emptying Insomnia (11/28/16) Kidney stone Low back pain (11/28/16) Lower extremity edema Lumbar radicular syndrome (11/28/16) Numbness in right leg s/p neurosurgery x2 (posterior R knee and last 2 toes, foot pad) Pelvic congestion syndrome Post concussive syndrome Post laminectomy syndrome (11/28/16) Pruritic rash Derm ([place]); Biopsy ([place]) Vertigo (11/28/16) Surgical History Discectomy (03/29/11) (R) L5-S1 microsurg decom discectomy - 2nd Surgery (R) L5-S1 discectomy and decompression 02/11 History of hip surgery (~08/2022) [facility]--1. Arthroscopic labral debridement, CPT# 17712 2. Arthroscopic femoroplasty, CPT# 43945 3. Endoscopic iliotibial band release, CPT# 72673 4. Endoscopic trochanteric bursectomy, CPT# 73260 laminectomy (12/11/12) Dr. Santoyo 2011-[place], [place]
[2023-09-11 17:04] LABS: Troponin I < 50 ng/L (<or=60)
== END 2023-09-11 16:40 | disposition home or self-care (01) ==
PROVIDERS: Emergency Provider Physician Assistant; PCP Nurse Practitioner Adult Health
DX: H81.10 Benign paroxysmal vertigo, unspecified ear (principal); R10.11 Right upper quadrant pain
CPT/HCPCS: 80053; 82962; 93005; 97112; 97161; 99283; 83735; 84484; 84703; 85025; 93010; 99284; J0780; J3360

== ENCOUNTER 2023-09-19 01:40 | Outpatient (CLI) | payer OTHER, SELFPAY | END 2023-09-19 02:00 | LOC: DI 01:40 | PROVIDERS: PCP Nurse Practitioner Adult Health; Visit Provider Nurse Practitioner Adult Health | DX: Z12.31 Encounter for screening mammogram for malignant neoplasm of breast (principal) | CPT/HCPCS: 77063; 77067 ==

== ENCOUNTER 2023-09-19 09:15 | Outpatient (CLI) | payer OTHER, SELFPAY ==
--- NOTE | 2023-09-19 09:15 | RT.EKG_ITS ---
APPROVED REPORT Exam: Resting ECG Reason for Exam: 08/2023 h/o abnormal ekg Anteroseptal infarct Patient Location: O HR:75 bpm ECG Measurements Heart Rate 75 AXIS FL 160 P 24 QRSd 89 QRS 85 QT 407 T 54 QTc 455 Conclusion Sinus rhythm...normal P axis, V-rate 50- 99 Poor R wave progression
== END 2023-09-19 09:16 | disposition home or self-care (01) ==
PROVIDERS: PCP Nurse Practitioner Adult Health; Visit Provider Nurse Practitioner Adult Health
DX: R94.31 Abnormal electrocardiogram [ECG] [EKG] (principal)
CPT/HCPCS: 93005; 93010

== ENCOUNTER → 2023-10-20 02:19 | Outpatient (CLI) | payer OTHER, SELFPAY ==
--- NOTE | 2023-10-20 08:15 | DI.MRI_ITS ---
Exam(s) MR BRAIN WO EXAM: MR BRAIN WO CLINICAL HISTORY: headache, blurred vision, tremor, R51.9, R25.1, H53.8 TECHNIQUE: Multiplanar multisequence MRI of the brain was performed. COMPARISON: MR MRI - BRAIN WO CONTRAST from 09/03/2017 FINDINGS: VENTRICLES AND EXTRA AXIAL SPACES: Normal in size and morphology for the patient's age. MIDLINE SHIFT: None. CEREBRAL PARENCHYMA: No focus of restricted diffusion to suggest acute infarct. No space-occupying le isaak identified. No abnormal white matter lesions. No evidence of hemorrhage. BRAINSTEM/CEREBELLUM: Normal. VISUALIZED PARANASAL SINUSES/MASTOIDS:Clear. Vasculature: Normal flow void. PITUITARY GLAND: Unremarkable. ORBITS: Unremarkable. IMPRESSION: Unremarkable MRI of the brain. DATA REPOSITORY:
== END ==
PROVIDERS: PCP Nurse Practitioner Adult Health; Visit Provider Nurse Practitioner
DX: H53.8 Other visual disturbances (principal); R25.1 Tremor, unspecified; R51.9 Headache, unspecified
CPT/HCPCS: 70551

== ENCOUNTER 2023-11-27 01:06 | Outpatient (CLI) | payer OTHER, SELFPAY ==
[2023-11-27 14:38] LABS: TSH (W/Ref FT4) 1.42 uIU/mL (0.36-3.74); Vitamin B12 807 pg/mL (193-986)
== END 2023-11-27 01:07 | disposition home or self-care (01) ==
LOC: LBO 01:06
PROVIDERS: PCP Nurse Practitioner Adult Health; Visit Provider Psychiatry & Neurology Neurology
DX: R41.3 Other amnesia (principal); G62.9 Polyneuropathy, unspecified
CPT/HCPCS: 36415; 82607; 84443

== ENCOUNTER 2024-01-08 12:38 | Outpatient (CLI) | payer OTHER, SELFPAY ==
--- NOTE | 2024-01-08 06:00 | DI.RAD_ITS ---
Exam(s) XR PAIN CLINIC SACRIOILIAC 2V EXAM: XR PAIN CLINIC SACRIOILIAC 2V CLINICAL HISTORY: DX: Right Sacroiliac dysfunction TECHNIQUE: 2D and realtime digital imaging was performed. Radiologist not present. CONTRAST MATERIAL: None. COMPARISON: No exams were available for comparison FINDINGS: Fluoroscopy was provided for pain management therapy. Please refer to procedure report or details. Radiation Exposure Index: Ka,r=5.37 mGy IMPRESSION: As above. RADIATION DOSE DELIVERED:
[2024-01-08 12:42] VITALS: BP 117/78; PULSE 64; RESP 20; TEMP 36.7; O2SAT 98
--- NOTE | 2024-01-08 13:08 | PDOC.PAIN_ITS ---
Date of service: 01/08/24 Time of Service: 13:08 Pain Managment Procedure Note Procedure Note Procedure Note: PROCEDURE NOTE RIGHT INTRA-ARTICULAR SACROILIAC JOINT INJECTION Date of Service: January 08, 2024 Patient: Janey Zapata Provider: Fabio Jim DO, MPH COMMENTS: I previously evaluated the patient in the office and their symptoms in relation to the sacroiliac joint pain have remained the same. She has had this procedure in the past and had >60% pain relief for >3 months. Pre-operative diagnosis: Sacroiliac joint dysfunction Post-operative diagnosis: Same Pre-procedure pain: VAS= 7/10 Janey Zapata has been referred to our [facility] for a Right intra-articular Sacroiliac joint injection. Janey was interviewed and the medical record reviewed. There were no medical, pharmacologic, radiographic or other structural contraindications to attempting a fluoroscopically-guided, contrast-enhanced, intra-articular Sacroiliac joint injection. The risks, benefits, and potential side effects of this procedure were reviewed with the patient. Questions and concerns were addressed. After it was clear that Janey was fully informed about the procedure, the printed consent form was signed by the patient and myself. Janey was placed in the prone position on the fluoroscopy table and an automated blood pressure cuff, 3 lead EKG, and pulse oximeter were applied. The skin entry point for approaching the Right sacroiliac joint was identified under the most advantageous fluoroscopic view and marked. Following thorough Chlorhexadine preparation of the skin and draping with sterile surgical drapes, 2 mls of 1% lidocaine was infiltrated into the skin at the entry point and the surrounding subcutaneous tissues. Next, a 3.5 22G spinal needle was placed under fluoroscopic guidance into the Right sacroiliac joint. Intra-articular placement was confirmed by a clear arthrogram resulting from the injection of 0.25ml of Omnipaque-240. Next, 1 ml of Depo- Medrol 80 mg/ml was injected intra- articularly with an initial reproduction of a significant component of the usual pain. This was followed with 1 ml of 1% Lidocaine. The needle was then removed without difficulty. (49 ml of Omnipaque-240 was wasted). Janey's vital signs were stable throughout the procedure and were as recorded in nursing records. Follow up plans and appointments were discussed with Janey. Post procedure instructions were given as documented in nursing records. Having met discharge criteria, Janey was discharged from the [facility]. COMMENTS: Post-procedure pain: VAS= 0/10. If the patient receives at least 50% improvement in pain and/or function for at least 3 months, this procedure can be repeated if needed. I personally performed this entire procedure. FABIO JIM DO, MPH ABPMR-subspecialty board certification in Pain Medicine [facility] [facility]
[2024-01-08] MEDS: methylPREDNISolone ACETATE 80 MG/ML VIAL IJ (13:17)
[2024-01-08] MEDS: Omnipaque 240 MG/ML 50 ML BTL IJ (13:18)
[2024-01-08] MEDS: Nerve Block Tray 1 EACH MC (13:18)
[2024-01-08 13:19] VITALS: BP 120/76; PULSE 66; RESP 22; O2SAT 98
== END 2024-01-08 12:39 | disposition home or self-care (01) ==
LOC: PC 12:38
PROVIDERS: PCP Nurse Practitioner Adult Health; Visit Provider Preventive Medicine Occupational Medicine
DX: M46.1 Sacroiliitis, not elsewhere classified (principal)
CPT/HCPCS: 00123; 27096; 72200; J1040; Q9967

== ENCOUNTER → 2024-02-18 01:24 | Outpatient (CLI) | payer OTHER, SELFPAY ==
--- NOTE | 2024-02-18 08:15 | DI.MRI_ITS ---
Exam(s) MR LUMBAR SPINE WO EXAM: MR LUMBAR SPINE WO CLINICAL HISTORY: Increased lumbar pain with radiation down rt leg, m54.50,m79.604. TECHNIQUE: Multiplanar multisequence MRI of the Lumbar spine was performed. COMPARISON: None FINDINGS: Bones: The last intervertebral disc space is designated the L5/S1 level for the numbering purpose of this ex amination. The vertebral body heights are well maintained. Alignment: Unremarkable. The marrow signal characteristics are unremarkable. Cord: The conus tip ends at the T12 level. It is of normal size and signal intensity. T12-L1: No focal disc herniation is present. No central spinal canal stenosis.No neural foraminal st enosis. L1-2: No focal disc herniation is present. No central spinal canal stenosis.No neural foraminal sten osis. L2-3: No focal disc herniation is present. No central spinal canal stenosis.No neural foraminal khalida nosis. L3-4: No focal disc herniation is present. No central spinal canal stenosis.No neural foraminal khalida nosis. L4-5:Partial disc desiccation. Focal central slightly right-sided disc protrusion. Facet degenerati ve changes and ligamentous hypertrophy. Findings produce [id number] central canal stenosis.No neural foraminal stenosis. L5-S1: Postsurgical changes in the posterior elements. Moderate to severe loss of disc height. Smal l endplate osteophytes.No focal disc herniation is present. Mild facet joint degenerative changes. No central spinal canal stenosis.No neural foraminal stenosis. The visualized SI joints and sacrum are unremarkable. Soft tissues: Postsurgical scarring posteriorly at the L5-S1 level. IMPRESSION: Central and slightly right-sided disc protrusion at L4-5 combines with facet degenerative changes and ligamentous hypertrophy to produce [id number] central canal stenosis. DATA REPOSITORY:
== END ==
PROVIDERS: PCP Nurse Practitioner Adult Health; Visit Provider Nurse Practitioner Family
DX: M54.50 Low back pain, unspecified (principal); M79.604 Pain in right leg
CPT/HCPCS: 72148

== ENCOUNTER 2024-04-01 09:59 | Outpatient (CLI) | payer OTHER, SELFPAY ==
[2024-04-01 10:13] VITALS: BP 127/77; PULSE 60; RESP 20; TEMP 36.4; O2SAT 97
[2024-04-01 10:43] VITALS: BP 131/79; PULSE 66; RESP 12; O2SAT 97
--- NOTE | 2024-04-01 10:48 | PDOC.PAIN_ITS ---
Date of service: 04/01/24 Time of Service: 10:48 Pain Managment Procedure Note Procedure Note Procedure Note: PROCEDURE NOTE CAUDAL EPIDURAL STEROID INJECTION Date of Service: April 01, 2024 Patient:? Janey Zapata? Provider:? Fabio Jim DO, MPH Janey Zapata has been referred to the Pain Management Center for caudal epidural steroid injection.? Pre-operative diagnosis: Lumbosacral Radiculopathy Post-operative diagnosis: Same Pre-Procedure Pain: VAS= 6/10. COMMENTS: She was recently evaluated by her neurosurgeon, who recommended this procedure. Bubbawas interviewed and the medical record was reviewed.? There were no medical, pharmacologic, radiographic or other structural contraindications to attempting fluoroscopically guided epidural steroid injection.? Risks and expected side effects as well as potential benefit of the procedure were reviewed with Bubba, and the patient's voiced concerns were addressed.? The printed consent form was signed.? Standard time-out procedure was performed. Bubba was placed in the prone position on the fluoroscopy table and automated blood pressure cuff and pulse oximeter applied.? The skin entry point for entering/approaching the epidural space by a caudal approach through the sacral hiatus ed identified with surgical skin marking.? Following thorough chlorhexidine preparation of the skin and draping and 1% lidocaine infiltration of the skin entry point and subcutaneous tissues, a 17 gauge Touhy needle was placed under fluoroscopic guidance? into the epidural space. Needle tip placement and depth were aided and confirmed by fluoroscopy in the lateral and AP position. There was no paresthesia or return of blood or CSF through the needle. 1 cc of Omnipaque 240 was injected with clear epidural spread confirmed with fluoroscopy. An Arrow 19G radio-opaque epidural catheter was advanced into the epidural space to the L5-S1 level and 2 cc of Omnipaque 240 was injected with clear epidural spread. 80 mg of Depo-Medrol was? injected. There was no unusual discomfort expressed by Janey. The needle and catheter were then flushed with 1 cc of 1% Lidocaine and they were removed together without difficulty (49 cc of Omnipaque was wasted). Janey was observed and was without hemodynamic, neurologic, or allergic reactions.? Fluoroscopic images were digitally archived. Janey's vital signs were stable throughout the procedure and were as recorded in the docflowsheet by the nursing staff.? If given, dosages of intravenous drugs for anxiolysis and analgesia were documented in MAR. Follow up plans and appointments were discussed with Janey.? Post procedure instruction was given as documented in nursing documentation and having met discharge criteria, Janey was discharged from the [facility]. ? COMMENTS: No apparent complications.? Post-procedure pain: VAS= 0/10. If the patient receives at least 50% improvement in pain and/or function for at least 3 months, this procedure can be repeated. I personally completed the entire procedure. FABIO JIM DO, MPH ABPM&R - Subspecialty board certification in Pain Medicine [facility]
--- NOTE | 2024-04-01 10:50 | DI.RAD_ITS ---
Exam(s) XR PAIN CLINIC LUMBAR SP 2V EXAM: XR PAIN CLINIC LUMBAR SP 2V CLINICAL HISTORY: DX: Lumbar radiculopathy. TECHNIQUE: Fluoroscopy was provided for the referring physician for guidance with performing pain cl inic injection procedure. COMPARISON: No exams were available for comparison FINDINGS: Please see procedure note for details. Fluoro time: 45.2 seconds RADIATION DOSE DELIVERED: Ka,r=20.13 mGy
[2024-04-01] MEDS: methylPREDNISolone ACETATE 80 MG/ML VIAL IJ (10:56)
[2024-04-01] MEDS: Omnipaque 240 MG/ML 50 ML BTL IJ (10:56)
[2024-04-01] MEDS: Nerve Block Tray 1 EACH MC (10:56)
== END 2024-04-01 10:00 | disposition home or self-care (01) ==
LOC: PC 09:59
PROVIDERS: PCP Nurse Practitioner Adult Health; Visit Provider Preventive Medicine Occupational Medicine
DX: M54.17 Radiculopathy, lumbosacral region (principal)
CPT/HCPCS: 62323; 72100; J1010; Q9967

== ENCOUNTER → 2024-06-29 01:21 | Outpatient (CLI) | payer OTHER, SELFPAY ==
--- NOTE | 2024-06-29 | DI.MRI_ITS ---
Exam(s) MR LUMBAR SPINE WO EXAM: MR LUMBAR SPINE WO CLINICAL HISTORY: LUMBAR DISC HERNIATION,M51.26. TECHNIQUE: Multiplanar multisequence MRI of the Lumbar spine was performed. COMPARISON: CR XR HIP RT COMPLETE AP PELVIS from 05/07/2023 MR MR LUMBAR SPINE WO from 02/18/2024 FINDINGS: Bones: The last intervertebral disc space is designated the L5/S1 level for the numbering purpose of this ex amination. The vertebral body heights are well maintained. Alignment: Unremarkable. The marrow signal characteristics are unremarkable. Cord: The conus tip ends at the T12 level. It is of normal size and signal intensity. T12-L1: No focal disc herniation is present. No central spinal canal stenosis.No neural foraminal st enosis. L1-2: No focal disc herniation is present. No central spinal canal stenosis.No neural foraminal sten osis. L2-3: No focal disc herniation is present. No central spinal canal stenosis.No neural foraminal khalida nosis. L3-4: No focal disc herniation is present. No central spinal canal stenosis.No neural foraminal khalida nosis. L4-5: Mild interval increase in size of previously noted right paracentral disc protrusion. Mild int erval worsening central canal stenosis, moderate. Mild facet degenerative changes and ligamentous hy pertrophy. No significant neural foraminal narrowing. L5-S1: Stable marked loss of disc height. Small endplate osteophytes and minimal disc bulging. Righ t laminectomy defect. Mild facet degenerative changes. No focal disc herniation is present. No radha tral spinal canal stenosis.No neural foraminal stenosis. The visualized SI joints are unremarkable. Nerve root sheath cyst noted at S2, unchanged. Soft tissues: Posterior postsurgical scarring at the lower lumbar levels. IMPRESSION: Mild interval increase in prominence of previously noted right paracentral disc protrusion at L4-5 ca using moderate central canal stenosis in combination with facet degenerative changes and ligamentous hypertrophy. Stable postsurgical changes at L5-S1. DATA REPOSITORY:
== END ==
PROVIDERS: PCP Nurse Practitioner Adult Health; Visit Provider Physician Assistant Surgical
DX: M51.26 Other intervertebral disc displacement, lumbar region (principal); M48.061 Spinal stenosis, lumbar region without neurogenic claudication; M96.1 Postlaminectomy syndrome, not elsewhere classified
CPT/HCPCS: 72148

== ENCOUNTER 2024-08-31 10:26 | Outpatient (CLI) | payer OTHER, SELFPAY ==
[2024-08-31 11:09] LABS: Anion Gap 9.6 mmol/L (3-11); BUN 10 mg/dL (7-18); CO2 27.4 mmol/L (21.0-32.0); Calcium 9.2 mg/dL (8.5-10.1); Calculated LDL 129 mg/dL (<100); Chloride 102 mmol/L (98-107); Cholesterol 196 mg/dL (<200); Estimated GFR 72.13 (mL/min/1.73m2); Folate 4.3 ng/mL (8.6-20.0); Glucose 88 mg/dL (74-106); HDL Cholesterol 45 mg/dL (40-60); Potassium 3.8 mmol/L (3.5-5.1); Sodium 139 mmol/L (136-145); Triglyceride 110 mg/dL (<150); Vitamin B12 748 pg/mL (193-986)
[2024-09-01 10:48] LABS: HIV-1/2 Ag & Ab Screen Negative (Negative)
[2024-09-01 11:02] LABS: Hepatitis C Ab w Rflx HCV PCR Negative (Negative)
== END 2024-08-31 10:27 | disposition home or self-care (01) ==
LOC: LBO 10:26
PROVIDERS: PCP Nurse Practitioner Adult Health; Visit Provider Nurse Practitioner Adult Health
DX: E66.9 Obesity, unspecified (principal); Z11.4 Encounter for screening for human immunodeficiency virus [HIV]; Z11.59 Encounter for screening for other viral diseases; Z13.1 Encounter for screening for diabetes mellitus; Z13.220 Encounter for screening for lipoid disorders
CPT/HCPCS: 36415; 80048; 80061; 86803; 87389; 82607; 82746

== ENCOUNTER 2024-10-11 01:10 | Outpatient (CLI) | payer OTHER, SELFPAY ==
--- NOTE | 2024-10-11 | DI.MRI_ITS ---
Exam(s) MR LUMBAR SPINE WO/W EXAM: MR LUMBAR SPINE WO/W CLINICAL HISTORY: Herniated lumbar intervertebral disc, M51.26. TECHNIQUE: Multiplanar multisequence MRI of the Lumbar Spine was performed. Additional pre and post gadolinium fat suppressed T1 sagittal and axial sequences were performed. CONTRAST MATERIAL: IV Contrast: 15 mL of Dotarem contrast administered. COMPARISON: CR XR HIP RT COMPLETE AP PELVIS from 05/07/2023 MR MR LUMBAR SPINE WO from 02/18/2024 MR MR LUMBAR SPINE WO from 06/29/2024 FINDINGS: Bones: The last intervertebral disc space is designated the L5/S1 level for the numbering purpose of this examination. The vertebral body heights are well maintained. Alignment is satisfactory. The signal characteristics are unremarkable. Right-sided laminectomy defects at L4 and L5. Cord: The conus tip ends at the T12 level. It is of normal size and signal intensity. T12-L1: No disc herniations or bulges are present. No central spinal canal or neural foraminal stenos is. L1-2: No disc herniations or bulges are present. No central spinal canal or neural foraminal stenosis . L2-3: No disc herniations or bulges are present. No central spinal canal or neural foraminal stenosis . L3-4: No disc herniations or bulges are present. No central spinal canal or neural foraminal stenosis . L4-5: Stable size of previously noted right paracentral disc protrusion. Facet degenerative changes and ligamentous hypertrophy stable moderate central canal stenosis, now mild. No central spinal can al or neural foraminal stenosis. L5-S1: Stable degenerative disc changes. The visualized SI joints and sacrum are well maintained. Soft tissues: Enhancement in the soft tissues posterior to the L5 level. No evidence of abscess. No abnormal enhancement in the vertebral bodies or discs. No abnormal enhancement within the central c anal. . IMPRESSION: Stable size of right paracentral disc protrusion at L4-5. Stable moderate central canal stenosis. Postsurgical enhancement in the posterior soft tissues. No suspicious areas of enhancement. DATA REPOSITORY:
[2024-10-11] MEDS: Normal Saline Flush 10 ML SYR IVP (12:32)
[2024-10-11] MEDS: Gadoterate meglumine 20 ML SYRINGE 15 ML IVP (12:32)
== END 2024-10-11 01:30 ==
LOC: DI 01:10
PROVIDERS: PCP Nurse Practitioner Adult Health; Visit Provider Physician Assistant Surgical
DX: M51.26 Other intervertebral disc displacement, lumbar region (principal)
CPT/HCPCS: 72158

== ENCOUNTER 2025-01-08 12:16 | Emergency (ER) | payer OTHER, SELFPAY ==
[2025-01-08 12:21] VITALS: BP 95/68; PULSE 74; RESP 16; TEMP 36.7; O2SAT 97
[2025-01-08 12:39] VITALS: RESP 16
--- NOTE | 2025-01-08 12:45 | ED.GENADUL_ITS ---
Discharge Plan Disposition Patient Disposition: Home Condition: Stable Discharge Details Clinical Impression: Infection following a procedure, deep incisional surgical site, initial encounter Primary Care Provider: Altagracia Good ED Provider: Lena Bean Home Meds and New Rx's Prescriptions: New sulfamethoxazole-trimethoprim [Bactrim DS] 800-160 mg tablet 1 tab PO BID 10 Days Qty: 20 0RF Continued cyclobenzaprine 10 mg tablet 10 mg PO HS PRN (Reason: muscle spasm) Qty: 10 0RF propranolol 10 mg tablet 10 mg PO BID Qty: 180 3RF prochlorperazine maleate 10 mg tablet 10 mg PO Q8H PRN (Reason: nausea and vomiting or headache) Qty: 30 4RF sumatriptan succinate 100 mg tablet See Rx Instructions PO .COMPLEX Qty: 9 5RF Rx Instructions: take 1 tab at onset of headache; if no relief, may repeat 1 tab after at least 2 hrs; max = 2 tabs/24 hrs PO Zepbound 5 mg/0.5 mL pen injector 5 mg subcut QWEEK Qty: 6 1RF gabapentin 100 mg capsule 100 mg PO QHS amlodipine 5 mg tablet 5 mg PO DAILY PRN (Reason: Raynauds) Qty: 90 3RF Rx Instructions: Podiatry 12/2020 recommended pantoprazole [Protonix] 40 mg tablet,delayed release (DR/EC) 40 mg PO DAILY PRN (Reason: heartburn) Qty: 90 0RF fluoxetine 20 mg capsule 20 mg PO QAM MDD 60 mg Qty: 90 1RF fluoxetine 40 mg capsule 40 mg PO QAM MDD 60 mg Qty: 90 1RF bupropion HCl 200 mg tablet sustained-release 12 hr 200 mg PO BID Qty: 180 1RF acetaminophen [Acetaminophen Extra Strength] 500 MG tablet 500 mg PO TID PRN folic acid 1 mg tablet 1 mg PO DAILY Qty: 90 3RF cephalexin 500 mg capsule 500 mg PO BID Patient Comments: new order, not started Discharge Instructions Instructions: How to Prevent Surgical Site Infections, Wound Infection Additional Instructions: CT shows a may have a early developing infection to the surgical incision site. Please take the antibiotics with yogurt or a probiotic as directed. Please call the surgeon at [facility] and I do encourage and recommend you be seen within the next week for follow-up. Please take Tylenol or Ibuprofen with food every 4-6 hours as needed for pain and swelling. Follow up with surgical neurosurgery team at [facility] in 3-5 days. Return to ED sooner if any worsening fever, loss of bowel or bladder control, weakness in your legs, or concerns. Thank you for allowing us to care for you today. Referrals: [facility] [Outside] - 5 days (Post-surgical site infection) Discharge Data Discharge Date/Time-TO BE ENTERED AT DEPARTURE: 01/08/25 15:20 HPI General Mode of arrival: ambulatory . Date/Time Provider Initiated Documentation: 01/08/25 12:29 . Limitations to Documentation: no limitations . Information obtained by: patient, RN notes reviewed and old records reviewed . HPI Narrative: 44-year-old female presents to the ER with a chief complaint of purulent discharge from her surgical incision. Patient had a laminectomy at L5 at [facility] on December 16. She reports that since the surgery she has had clear drainage noticed this morning that she had some yellow purulent drainage from the incision. She also notes that she has felt flushed and feverish without documented fever. She did get in touch with the surgical team who called in her a prescription for cephalexin which she has not started yet. She reports having urinary hesitancy but no incontinence of urine or stool. On examination no surrounding erythema or induration of the incision. There is a small amount of drainage which was cultured. Related Data Home Medications ?Medication ?Instructions ?Recorded ?Confirmed acetaminophen 500 mg tablet 500 mg PO TID PRN 12/11/16 01/08/25 (Acetaminophen Extra Strength) cyclobenzaprine 10 mg tablet 10 mg PO HS PRN muscle spasm #10 02/20/24 01/08/25 tabs prochlorperazine maleate 10 mg 10 mg PO Q8H PRN nausea and 07/12/24 01/08/25 tablet vomiting or headache #30 tabs propranolol 10 mg tablet 10 mg PO BID #180 tabs 07/12/24 01/08/25 sumatriptan succinate 100 mg tablet See Rx Instructions PO .COMPLEX #9 07/12/24 01/08/25 tabs tirzepatide (weight loss) 5 mg/0.5 5 mg (0.5 mL) subcut QWEEK #6 mL 08/26/24 01/08/25 mL subcutaneous pen injector (Zepbound) folic acid 1 mg tablet 1 mg PO DAILY #90 tabs 09/01/24 01/08/25 bupropion HCl 200 mg tablet,12 hr 200 mg PO BID #180 tabs 09/13/24 01/08/25 sustained-release fluoxetine 20 mg capsule 20 mg PO QAM #90 caps 09/13/24 01/08/25 fluoxetine 40 mg capsule 40 mg PO QAM #90 caps 09/13/24 01/08/25 gabapentin 100 mg capsule 100 mg PO QHS 10/19/24 01/08/25 amlodipine 5 mg tablet 5 mg PO DAILY PRN Raynauds #90 tabs 11/22/24 01/08/25 pantoprazole 40 mg tablet,delayed 40 mg PO DAILY PRN heartburn #90 11/22/24 01/08/25 release (Protonix) tabs cephalexin 500 mg capsule 500 mg PO BID 01/08/25 01/08/25 sulfamethoxazole 800 1 tab PO BID 10 days #20 tabs 01/08/25 mg-trimethoprim 160 mg tablet (Bactrim DS) Previous Rx's ?Medication ?Instructions ?Recorded cyclobenzaprine 10 mg tablet 10 mg PO HS PRN muscle spasm #10 02/20/24 tabs prochlorperazine maleate 10 mg 10 mg PO Q8H PRN nausea and 07/12/24 tablet vomiting or headache #30 tabs propranolol 10 mg tablet 10 mg PO BID #180 tabs 07/12/24 sumatriptan succinate 100 mg tablet See Rx Instructions PO .COMPLEX #9 07/12/24 tabs tirzepatide (weight loss) 5 mg/0.5 5 mg (0.5 mL) subcut QWEEK #6 mL 08/26/24 mL subcutaneous pen injector (Zepbound) folic acid 1 mg tablet 1 mg PO DAILY #90 tabs 09/01/24 bupropion HCl 200 mg tablet,12 hr 200 mg PO BID #180 tabs 09/13/24 sustained-release fluoxetine 20 mg capsule 20 mg PO QAM #90 caps 09/13/24 fluoxetine 40 mg capsule 40 mg PO QAM #90 caps 09/13/24 amlodipine 5 mg tablet 5 mg PO DAILY PRN Raynauds #90 tabs 11/22/24 pantoprazole 40 mg tablet,delayed 40 mg PO DAILY PRN heartburn #90 11/22/24 release (Protonix) tabs sulfamethoxazole 800 1 tab PO BID 10 days #20 tabs 01/08/25 mg-trimethoprim 160 mg tablet (Bactrim DS) Allergies Allergy/AdvReac Type Severity Reaction Status Date / Time vancomycin Allergy Intermediate Rash Verified 01/08/25 12:26 oxycodone HCl (From Percocet) AdvReac Unknown GI Upset Verified 01/08/25 12:26 General Stated Complaint: GenMedical JADEN: 3 Review of Systems All systems reviewed & are unremarkable except as noted in HPI and below Integumentary/Breasts Skin/Breast: Reports as per HPI and Reports wounds (Drainage from incision site) Exam Const General: cooperative, healthy appearing, well developed and well groomed Nutritional Appearance: average body habitus Orientation: alert, awake and oriented x3 Resp Effort & Inspection: normal respiratory effort and able to speak in complete sentences Auscultation: clear to auscultation bilaterally Cardio Palpation: normal PMI Rate: regular rate Rhythm: regular rhythm Heart Sounds: S1 normal and S2 normal Back/Spine/Pelvis Cervical Spine: normal cervical lordosis Thoracic/Lumbar Spine: surgical scar(s) present ( small amount of purulent drainage noted to distal third lumbar) Pelvis: no pain with anterior-posterior compression Back/spine/pelvis image: 2 1. Approximately 5 cm vertical incision noted, well-approximated, no surrounding induration or erythema, there is a small amount of purulent drainage noted at the distal third of the incision. This was expressed with some pressure and cultured. Neuro General: patient alert, patient awake, patient oriented x3, gait normal, tone normal, moves all extremities and normal light touch, pain and propioception Cranial Nerves: CN's II-XI intact bilaterally Cognition: normal cognition Speech: speech normal Course Vital Signs Vital signs: Vital Signs Temperature 36.7 C 01/08/25 12:21 Pulse 74 01/08/25 12:21 Respiratory Rate 16 01/08/25 12:21 Blood Pressure 95/68 L 01/08/25 12:21 Pulse Oximetry 97 01/08/25 12:21 Temperature 36.7 C 01/08/25 12:21 Temperature Source Oral 01/08/25 12:21 Pulse 74 01/08/25 12:21 Respiratory Rate 16 01/08/25 12:39 Respiratory Effort Normal 01/08/25 12:39 Respiratory Depth Normal 01/08/25 12:39 Respiratory Pattern Normal 01/08/25 12:39 Blood Pressure 95/68 L 01/08/25 12:21 Blood Pressure Position Sitting 01/08/25 12:21 Pulse Oximetry 97 01/08/25 12:21 Oxygen Delivery Method Room Air 01/08/25 12:21 Oxygen Flow Rate 0 01/08/25 12:21 Pain Level 8 01/08/25 12:21 Comment increasing pain over time 01/08/25 12:21 Medical Decision Making 44-year-old female presents to the ER with a chief complaint of purulent discharge from her surgical incision. Patient had a laminectomy at L5 at [facility] on December 16. She reports that since the surgery she has had clear drainage noticed this morning that she had some yellow purulent drainage from the incision. She also notes that she has felt flushed and feverish without documented fever. She did get in touch with the surgical team who called in her a prescription for cephalexin which she has not started yet. She reports having urinary hesitancy but no incontinence of urine or stool. On examination no surrounding erythema or induration of the incision. There is a small amount of drainage which was cultured. Workup ordered including CBC CMP blood cultures lactate procalcitonin, CT lumbar spine with contrast to rule out abscess. Informed by [facility] swimming pool service technician that contrast was not given, patient to go back for a second exam for CT with contrast. No leukocytosis noted on CBC, does have elevated absolute neutrophils at 7.08 lactate within normal limit 0.8 CMP is pending at this time procalcitonin was less than 0.10. Will give cephalexin p.o. 500 mg Bactrim DS p.o. and a gram of Rocephin IV piggyback. CT shows a possible seroma or developing abscess, no obvious mature abscess. I will send patient home and instruct her to begin the cephalexin that was prescribed by her provider and also give her Bactrim. Will have her follow-up before her next appointment with the surgeon and give her a copy of the preliminary CT result. Patient was ambulatory at discharge without assistance. Patient remained hemodynamically stable alert and oriented throughout the remainder of her stay. This text was generated using [employer] system, please disregard any oddities of phrase or misspellings. Medical Records Medical records reviewed: Yes I reviewed the patient's medical records. Imaging Data Radiologic Study: Imaging: CT Scan Radiologist's impression: Age: 44 years old Clinical indication: Prior surgery; Surgery date: <1 month; Surgery type: Laminectomy l4/5. Abscess/pus drainage at surgical site TECHNIQUE: Imaging protocol: Computed tomography of the lumbar spine with contrast. Radiation optimization: All CT scans at this facility use at least one of these dose optimization techniques: automated exposure control; mA and/or kV adjustment per patient size (includes targeted exams where dose is matched to clinical indication); or iterative reconstruction. Contrast material: OMNI 350; Contrast volume: 100 ml; Contrast route: INTRAVENOUS (IV); COMPARISON: CT LUMBAR SPINE WO 01/08/2025 1:15 PM FINDINGS: Bones/joints: Previous right L4-L5 hemilaminotomy. At L4-L5 there is right paracentral hypodense abnormality with a thin rim of enhancement in the area of disc protrusion. It is possible this represents residual disc material. There is a separate component starting at the laminectomy defect and extending superficially with sagittally oriented hypodensity and a rim of enhancement. Anteriorposterior extent is approximately 5 cm. The superficial component measures 2.2 x 2.0 x 0.6 cm. Soft tissues: Unremarkable. IMPRESSION: 1. Right-sided L4-L5 hemilaminectomy with hypodense rim enhancing material extending in the sagittal plane superficially. Although the appearance is not consistent with mature abscess, seroma and developing infectious process could produce this appearance. 2. Right paracentral disc protrusion/fluid collection at the site of preoperative disc protrusion at L4- L5. Lab Data Lab results reviewed: Yes I reviewed the patient's lab results. Labs: 01/08/25 13:10 Blood Blood Culture - Pending 01/08/25 12:57 Blood Blood Culture - Pending 01/08/25 12:58 Back - Middle Wound Culture - Pending 01/08/25 12:58 Back - Middle Gram Stain - Pending Laboratory Tests Range/Units 01/08/25 12:58 WBC (4.4-10.8) 10^3/uL 9.22 RBC (3.93-5.22) 10^6/uL 4.27 Hgb (11.2-15.7) g/dL 12.8 Hct (36.0-46.0) % 38.4 MCV (80-95) fL 90 MCH (27.0-33.0) pg 30.0 MCHC (32.0-36.0) % 33.3 RDW (11.7-14.6) % 12.1 Plt Count (130-400) 10^3/uL 288 MPV (8.0-11.0) fL 8.9 Immature Gran % % 0.2 Neutrophils % % 76.8 Lymphocytes % % 12.8 Monocytes % % 9.0 Eosinophils % % 0.8 Basophils % % 0.4 Nucleated RBC % (0.0-0.3) % 0.0 Absolute Neutrophils (1.2-6.7) 10^3/uL 7.08 H Absolute Lymphocytes (1.2-3.4) 10^3/uL 1.18 L Absolute Monocytes (0.1-0.8) 10^3/uL 0.83 H Absolute Eosinophils (0.0-0.7) 10^3/uL 0.07 Absolute Basophils (0.0-0.2) 10^3/uL 0.04 VBG Lactate (<or=2.0) mmol/L 0.8 Sodium (136-145) mmol/L 139 Potassium (3.5-5.1) mmol/L 3.7 Chloride (98-107) mmol/L 105 Carbon Dioxide (21.0-32.0) mmol/L 29.8 Anion Gap (3-11) mmol/L 4.2 BUN (7-18) mg/dL 13 Creatinine (0.55-1.02) mg/dL 1.0 Est GFR (CKD-EPI 2020) (mL/min/1.73m2) 72.13 Glucose (74-106) mg/dL 100 Calcium (8.5-10.1) mg/dL 8.6 Magnesium (1.8-2.4) mg/dL 2.0 Total Bilirubin (0.2-1.0) mg/dL 0.56 AST (15-37) U/L 8 L ALT (14-59) U/L 20 Alkaline Phosphatase (46-116) U/L 71 Total Protein (6.4-8.2) g/dL 6.9 Albumin (3.4-5.0) g/dL 3.5 Procalcitonin ng/mL < 0.10 Quality:SDOH Health Related Social Needs: 2 No Data to Display PFSH All Active Problems (Updated 01/08/25 @ 14:34 by Lena Bean NP) Infection following a procedure, deep incisional surgical site, initial encounter (Acute) Adjustment disorder with mixed anxiety and depressed mood (Acute) Herniated lumbar intervertebral disc (Acute ~09/06/24) APD Neurosurgery 09/06/24 Folate deficiency (Acute ~08/2024) Angiomyolipoma of left kidney (Acute ~08/2023) Raynaud phenomenon (Acute) 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 Adjustment disorder (Chronic) Chronic pain (Chronic) 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 factors (Acute) GERD (gastroesophageal reflux disease) (Chronic 11/28/16) Obesity (BMI 30.0-34.9) (Chronic ~05/2024) Lumbar spondylosis (Acute) [facility] 03/16/24 Lumbar disc herniation with radiculopathy (Acute) Lumbar pain with radiation down right leg (Acute) Acute lumbar myofascial strain (Acute) Memory changes (Acute) Vertigo (Acute 11/28/16) Migraine headache without aura (Acute) Migraine headache with aura (Acute) Chronic daily headache (Acute) Abnormal EKG (Acute ~08/2023) Depression (Chronic) Breast cancer screening by mammogram (Acute) Postprandial abdominal pain in right upper quadrant (Acute) Ilioinguinal neuralgia of right side (Acute) Sacroiliac joint dysfunction of right side (Acute) Ischial bursitis of right side (Acute) LLQ abdominal pain (Acute) Injury of nerve of right lower extremity (Acute) Trochanteric bursitis of right hip (Acute) Labral tear of right hip joint (Acute ~03/2021) Raynauds disease (Acute) Podiatry 12/2020; RX Amlodipine Elevated serum creatinine (Acute) Vitamin D deficiency (Acute) Anxiety (Chronic) IUD surveillance (Acute 01/03/16) Mirena IUD placed 07/2012, replaced 09/04/18 Medical History Gluteal tendinitis of right buttock Pelvic congestion syndrome Kidney stone Cyst of right breast Incomplete bladder emptying Numbness in right leg s/p neurosurgery x2 (posterior R knee and last 2 toes, foot pad) Pruritic rash Derm ([facility]); Biopsy ([facility]) Post concussive syndrome Concussion With post-concussive syndrome; FMLA Lower extremity edema Post laminectomy syndrome (11/28/16) Lumbar radicular syndrome (11/28/16) Low back pain (11/28/16) Insomnia (11/28/16) Folliculitis (11/28/16) Degeneration of lumbar intervertebral disc with acute herniation (11/28/16) s/p 2 back surgeries Surgical History History of hip surgery (~08/2022) [facility]--1. Arthroscopic labral debridement, CPT# 47618 2. Arthroscopic femoroplasty, CPT# 30175 3. Endoscopic iliotibial band release, CPT# 05660 4. Endoscopic trochanteric bursectomy, CPT# 12064 laminectomy (12/11/12) Dr. Santoyo 2010[place] [facility] [place] (R) L5-S1 microsurg decom discectomy - 2nd Surgery (R) L5-S1 discectomy and decompression 02/11 Family History Mother Essential hypertension Arthritis Depression Hyperlipidemia Psoriasis Anxiety Heart disease Hypertension Brother Alcohol abuse Anxiety Depression Mental disorder Grandfather Essential hypertension Heart disease Hyperlipidemia Neoplasm Prostate cancer Grandmother Essential hypertension Depression Heart disease Hyperlipidemia Emphysema lung Anxiety Cancer Hypertension Father Alcohol abuse Other Breast cancer Social History Smoking/Tobacco Use Status: Former Tobacco Use Smoking risk assessment performed?: Yes Alcohol Intake: never Drug use: Never Substance use type: does not use Adopted: No Caregiver/Support person: No Foster care: No Household members: spouse and children Housing: house Number of Children: 2 Communication Needs: None Education Level: college Do you need help understanding health information?: Never 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 Pets and animals: Yes (4) Pets and animals: cat(s) Sexually active: Yes Do you think of yourself as: straight/heterosexual Current gender identity: female What is your relationship status?: How often do you talk on the phone with friends or family?: once per week How often do you get together with friends or relatives?: once per week Do you belong to any clubs or organized social groups?: no Panel score (0-1 are the most socially isolated patients): 1 What type of physical activity do you participate in: bicycling, regular exercise, swimming and resistance training Duration: 60-90 minutes/day Frequency: 5-6 times per week Special miki needs: No Seatbelt use: always Helmet use: Yes Helmet use: always Drive intox or ride w/intox pick up and delivery driver: No Working smoke detector in home: Yes Fire extinguisher in home: Yes Carbon monox detector in home: Yes Firearms in home: No Do you feel safe at home: Yes Do you feel safe in your relationship?: Yes Victim of physical abuse: No Victim of emotional abuse: No Victim of sexual abuse: No Female Reproductive History Menstrual control method: progestin IUCD (Mirena lot# [id number] exp 01/2021) History History 2 2 Para Hx # Term Pregnancies Multiple births Hx # Pregnancies Ectopic pregnancies AB induced Hx Number of Living Children AB spontaneous
[2025-01-08 13:07] LABS: Lactate 0.8 mmol/L (<or=2.0)
[2025-01-08 13:08] LABS: Abs Immature Grans 0.02 10^3/uL (0.0-0.06); Absolute Basophil Count 0.04 10^3/uL (0.0-0.2); Absolute Eosinophil Count 0.07 10^3/uL (0.0-0.7); Absolute Lymphocyte Count 1.18 10^3/uL (1.2-3.4); Absolute Monocyte Count 0.83 10^3/uL (0.1-0.8); Absolute Neutrophil Count 7.08 10^3/uL (1.2-6.7); Basophils % 0.4 %; Eosinophils % 0.8 %; HCT 38.4 % (36.0-46.0); HGB 12.8 g/dL (11.2-15.7); Immature Grans % 0.2 %; Lymphocytes % 12.8 %; MCHC 33.3 % (32.0-36.0); MCV 90 fL (80-95); MPV 8.9 fL (8.0-11.0); Neutrophils % 76.8 %; Platelet Count 288 10^3/uL (130-400); RBC 4.27 10^6/uL (3.93-5.22); RDW 12.1 % (11.7-14.6); RDW-SD 39.8 fL; WBC 9.22 10^3/uL (4.4-10.8)
[2025-01-08 13:26] LABS: ALT 20 U/L (14-59); AST 8 U/L (15-37); Albumin 3.5 g/dL (3.4-5.0); Alkaline Phosphatase 71 U/L (46-116); Anion Gap 4.2 mmol/L (3-11); BUN 13 mg/dL (7-18); Bilirubin, Total 0.56 mg/dL (0.2-1.0); CO2 29.8 mmol/L (21.0-32.0); Calcium 8.6 mg/dL (8.5-10.1); Chloride 105 mmol/L (98-107); Estimated GFR 72.13 (mL/min/1.73m2); Glucose 100 mg/dL (74-106); Potassium 3.7 mmol/L (3.5-5.1); Sodium 139 mmol/L (136-145); Total Protein 6.9 g/dL (6.4-8.2)
[2025-01-08 13:43] LABS: Procalcitonin < 0.10 ng/mL
--- NOTE | 2025-01-08 13:51 | DI.VRAD_ITS ---
PROCEDURE INFORMATION: Exam: CT Lumbar Spine Without Contrast Exam date and time: 01/08/2025 1:15 PM Age: 44 years old Clinical indication: Other: Abscess; Prior surgery; Surgery date: 3-7 days post-operative; Surgery type: S/P laminectomy l4/5 TECHNIQUE: Imaging protocol: Computed tomography of the lumbar spine without contrast. Radiation optimization: All CT scans at this facility use at least one of these dose optimization techniques: automated exposure control; mA and/or kV adjustment per patient size (includes targeted exams where dose is matched to clinical indication); or iterative reconstruction. COMPARISON: MR LUMBAR SPINE WO/W 10/11/2024 12:26 PM FINDINGS: Bones/joints: Right-sided L4-L5 hemilaminectomy. Central disc protrusion at L4-L5 similar to the preoperative exam. Mild canal stenosis at this level. Degenerative changes at L5-S1 and minimally L3-L4. No subluxation. Soft tissues: Soft tissue extending from the laminectomy defect superficially without definite focal rounded component. IMPRESSION: 1. Status post right-sided L4-L5 hemilaminectomy with residual right paracentral disc protrusion, similar to the preoperative study. 2. Prominent soft tissue extending from the laminectomy defect superficially. Although there is no clearly rounded fluid collection abscess can not be excluded on a noncontrast study. Dictated and Authenticated by: Arash Kumar MD. Orderin Vikas Paredes MD
[2025-01-08] MEDS: cefTRIAXone 1 GM/50 ML BAG IVPB (13:53)
[2025-01-08] MEDS: Cephalexin 500 MG CAP PO (13:53)
[2025-01-08] MEDS: Sulfameth/Trimeth DS TAB 1 TAB PO (13:53)
--- NOTE | 2025-01-08 14:02 | DI.CT_ITS ---
Exam(s) CT LUMBAR SPINE W CT LUMBAR SPINE WO EXAM: CT LUMBAR SPINE WO CLINICAL HISTORY: Spine Surgery, r/o abscess. TECHNIQUE: Imaging Protocol: Axial computed tomography images with coronal and sagittal reformatted images were created and reviewed COMPARISON: MR MR LUMBAR SPINE WO/W from 10/11/[address] LUMBAR SPINE W from 01/08/2025 FINDINGS: Bones: The last intervertebral disc space is designated the L5/S1 level for the numbering purpose of this examination. The vertebral body heights are well maintained. Alignment is satisfactory. No fracture is seen. Right-sided laminectomy is now present at L4-5. T12-L1: No disc herniations or bulges are present. L1-2: No disc herniations or bulges are present. L2-3: No disc herniations or bulges are present. L3-4: No disc herniations or bulges are present. L4-5: Right laminectomy again noted. Low-density collection with peripheral enhancement seen in the right paracentral location at the similar location of the previous disc herniation. This could repr esent a postsurgical collection however residual herniated disc material is not excluded. There is t his result in moderate central canal stenosis.. L5-S1: No disc herniations or bulges are present. The visualized SI joints and sacrum are well maintained. Soft Tissues: edema seen in the posterior soft tissues related to recent surgery. Fluid seen at th e right laminectomy site extending along the right side of the spinous process into the paraspinal mu scles. It measures 5 cm AP by 1.2 cm maximal transverse by 2.5 cm cephalocaudad. The findings could represent seroma however early abscess is not excluded. IMPRESSION: Postsurgical changes of right laminectomy at L4-5. Posterior soft tissue stranding related to recent surgery. Fluid collection with enhancing rim could represent seroma versus early abscess. Right pa racentral disc protrusion versus residual postsurgical fluid. RADIATION DOSE DELIVERED: Total DLP DATA REPOSITORY: All CT scans at this facility are submitted to the National Radiology Data Registry (NRDR) Dose Index Registry (DIR) with the [employer] [place] [employer] (ACR). RADIATION OPTIMIZATION: All CT scans at this facility use at least one of these dose optimization te chniques: automated exposure control; mA and/or kV adjustment per patient size (includes targeted exa ms where dose is matched to clinical indication); or iterative reconstruction.
[2025-01-08] MEDS: Normal Saline - Diluent 50 ML VIAL IJ (14:03)
[2025-01-08] MEDS: Omnipaque 350 MG/ML 100 ML BTL IJ (14:04)
--- NOTE | 2025-01-08 14:21 | DI.VRAD_ITS ---
PROCEDURE INFORMATION: Exam: CT Lumbar Spine With Contrast Exam date and time: 01/08/2025 1:45 PM Age: 44 years old Clinical indication: Prior surgery; Surgery date: <1 month; Surgery type: Laminectomy l4/5. Abscess/pus drainage at surgical site TECHNIQUE: Imaging protocol: Computed tomography of the lumbar spine with contrast. Radiation optimization: All CT scans at this facility use at least one of these dose optimization techniques: automated exposure control; mA and/or kV adjustment per patient size (includes targeted exams where dose is matched to clinical indication); or iterative reconstruction. Contrast material: OMNI 350; Contrast volume: 100 ml; Contrast route: INTRAVENOUS (IV); COMPARISON: CT LUMBAR SPINE WO 01/08/2025 1:15 PM FINDINGS: Bones/joints: Previous right L4-L5 hemilaminotomy. At L4-L5 there is right paracentral hypodense abnormality with a thin rim of enhancement in the area of disc protrusion. It is possible this represents residual disc material. There is a separate component starting at the laminectomy defect and extending superficially with sagittally oriented hypodensity and a rim of enhancement. Anterior-posterior extent is approximately 5 cm. The superficial component measures 2.2 x 2.0 x 0.6 cm. Soft tissues: Unremarkable. IMPRESSION: 1. Right-sided L4-L5 hemilaminectomy with hypodense rim enhancing material extending in the sagittal plane superficially. Although the appearance is not consistent with mature abscess, seroma and developing infectious process could produce this appearance. 2. Right paracentral disc protrusion/fluid collection at the site of preoperative disc protrusion at L4-L5. Dictated and Authenticated by: Arash Kumar MD. Orderin Vikas Paredes MD
[2025-01-08] MEDS: Acetaminophen 500 MG TAB 1000 MG PO (15:11)
[2025-01-08] MEDS: Sulfameth/Trimeth DS, 2 TABS/BTL 1 TAB PO (15:11)
[2025-01-08] MEDS: Cephalexin 500 MG CAP, 2 CAPS/BTL PO (15:12)
[2025-01-08 15:19] VITALS: BP 118/78; PULSE 72; RESP 16; TEMP 36.7; O2SAT 98
== END 2025-01-08 15:20 | disposition home or self-care (01) ==
PROVIDERS: Emergency Provider Registered Nurse Emergency; PCP Nurse Practitioner Adult Health
DX: T81.42XA Infection following a procedure, deep incisional surgical site, initial encounter (principal); Z87.891 Personal history of nicotine dependence
CPT/HCPCS: 80053; 84145; 87040; 87077; 96365; 99284; 72131; 72132; 83605; 83735; 85025; 87070; 87186; 87205; J0696; J3490

== ENCOUNTER 2025-01-20 08:39 | Inpatient (IN) | payer OTHER, SELFPAY ==
[2025-01-20] VITALS (28 sets, daily range): BP systolic 70–108; BP diastolic 38–77; PULSE 69–99; RESP 16–20; TEMP 36.3–37.3; O2SAT 94–100
--- NOTE | 2025-01-20 09:15 | DI.CT_ITS ---
Exam(s) CT BRAIN NECK CTA EXAM: CT BRAIN NECK CTA CLINICAL HISTORY: severe JHA, LP contraindicated. TECHNIQUE: Imaging Protocol: Axial CT angiography was performed with multi-slice acquisition and mu lti-planar and/or 3D reconstructions. CONTRAST MATERIAL: Intravenous: Omnipaque 350 contrast volume:70 mL COMPARISON: MR MR BRAIN WO from 10/20/2023 FINDINGS: CT Head W/O and W: Ventricles and Extra axial spaces: Normal in size and morphology for the patient's age. Hemorrhage: None. Cerebral parenchyma: No evidence of an acute territorial infarct is seen. No acute mass effect is pr esent. Midline shift: None. Brainstem/Cerebellum: Normal. Calvarium: Normal. Visualized Paranasal sinuses/Mastoids: Clear. Soft Tissues: Unremarkable. Enhancement: Unremarkable. CTA Neck W: Common Carotid: Right: No dissection, occlusion or significant stenosis. Left: No dissection, occlusion or significant stenosis. External Carotid: Right: No occlusion or significant stenosis. Left: No occlusion or significant stenosis. Internal Carotid: Right: No dissection, occlusion or significant stenosis. Left: No dissection, occlusion or significant stenosis. Vertebral Artery: Right: No dissection, occlusion or significant stenosis. Left: No dissection, occlusion or significant stenosis. Lung Apices: No focal infiltrates. Bones: Within normal limits for the patient's age. Mild degenerative changes are seen in the cervical spine. There is straightening of the normal cervical lordosis. This may be due to muscle spasm or patient positioning. Soft Tissues: Normal. Thyroid gland: Unremarkable. CTA Brain W: Internal Carotid Arteries: There is no evidence of aneurysm, occlusion or significant stenosis. Anterior Cerebral Arteries: Right: No aneurysm, occlusion or significant stenosis. Left: No aneurysm, occlusion or significant stenosis. Middle Cerebral Arteries: Right: No aneurysm, occlusion or significant stenosis. Left: No aneurysm, occlusion or significant stenosis. Posterior Cerebral Arteries: Right: No aneurysm, occlusion or significant stenosis. The right posterior cerebral artery arises fr om the right posterior communicating artery which is a normal variant. Left: No aneurysm, occlusion or significant stenosis. Vertebral Arteries: Right: No aneurysm, occlusion or significant stenosis. Left: No aneurysm, occlusion or significant stenosis. Basilar Artery: No aneurysm, occlusion or significant stenosis. IMPRESSION: 1. No large vessel occlusion or significant stenosis on the CT angiography of the head. 2. No acute intracranial process. 3. No occlusion or significant stenosis on the CT angiography of the neck. RADIATION DOSE DELIVERED: 2,140.76mGy.cm Total DLP DATA REPOSITORY: All CT scans at this facility are submitted to the National Radiology Data Registry (NRDR) Dose Index Registry (DIR) with the [employer] (ACR). RADIATION OPTIMIZATION: All CT scans at this facility use at least one of these dose optimization te chniques: automated exposure control; mA and/or kV adjustment per patient size (includes targeted exa ms where dose is matched to clinical indication); or iterative reconstruction.
[2025-01-20 09:18] LABS: Abs Immature Grans 0.01 10^3/uL (0.0-0.06); Absolute Basophil Count 0.03 10^3/uL (0.0-0.2); Absolute Eosinophil Count 0.07 10^3/uL (0.0-0.7); Absolute Lymphocyte Count 1.05 10^3/uL (1.2-3.4); Absolute Monocyte Count 0.41 10^3/uL (0.1-0.8); Absolute Neutrophil Count 4.04 10^3/uL (1.2-6.7); Basophils % 0.5 %; Eosinophils % 1.2 %; HCT 38.8 % (36.0-46.0); Immature Grans % 0.2 %; Lymphocytes % 18.7 %; MCHC 33.5 % (32.0-36.0); MCV 89 fL (80-95); MPV 8.7 fL (8.0-11.0); Monocytes % 7.3 %; Neutrophils % 72.1 %; Platelet Count 253 10^3/uL (130-400); RBC 4.34 10^6/uL (3.93-5.22); RDW 12.9 % (11.7-14.6); WBC 5.61 10^3/uL (4.4-10.8)
[2025-01-20] MEDS: diphenhydrAMINE 50 MG/ML VIAL 25 MG IVP (09:34)
[2025-01-20] MEDS: Lactated Ringers 1,000 ML 125 ML IV ×2 (09:34→18:27)
[2025-01-20] MEDS: Prochlorperazine 10 MG/2 ML VIAL IVP (09:35)
[2025-01-20] MEDS: Ketorolac 15 MG/ML VIAL IVP (09:35)
--- NOTE | 2025-01-20 09:49 | ED.GENADUL_ITS ---
Discharge Plan Disposition Patient Disposition: Admit to [facility] Condition: Serious Discharge Details Clinical Impression: Meningitis, Headache Admit Date/Time: 01/20/25 11:41 Admit Provider: Nima Samson Attending Provider: Nima Samson Primary Care Provider: Altagracia Good ED Provider: Oskar Byrd Discharge Data Discharge Date/Time-TO BE ENTERED AT DEPARTURE: 01/20/25 13:00 HPI General Mode of arrival: ambulatory . Date/Time Provider Initiated Documentation: 01/20/25 08:58 . Limitations to Documentation: no limitations . Information obtained by: patient and family . HPI Narrative: HISTORY OF PRESENT ILLNESS 44-year-old female with a history of lumbar surgery complicated by postoperative infection, currently on antibiotics. History of migraines. Presents with 1-2 days of severe vice post production assistant headache, posterior neck pain, light sensitivity, and vomiting. No similar headaches in the past. No fever. Accompanied by . Severe, vice-like headache started 1.5 days ago, originating from neck and radiating around head. New symptom, distinct from usual migraines. No neck stiffness but pain with neck/head movement. No fever, respiratory symptoms, abdominal pain, or swelling. History of inactive back rash. reports improved surgical site with some brownish discharge. No recent migraine treatment. Took sumatriptan yesterday but ran out. Receiving ceftriaxone 1 g IV push daily via PICC line at home. Prefers to remain at this hospital for further treatment. Unable to retain oral intake due to vomiting despite Tylenol and migraine medications. Underwent lumbar laminectomy on 12/16/2023, complicated by postoperative staph infection. Infection presented as oozing wound and rash, untreated for nearly 2 weeks before intervention. Hospitalized for 3 days, currently on IV antibiotics via PICC line at home, supervised by infectious disease department. History of anemia managed at home. Related Data Home Medications ?Medication ?Instructions ?Recorded ?Confirmed cyclobenzaprine 10 mg tablet 10 mg PO HS PRN muscle spasm #10 02/20/24 01/20/25 tabs prochlorperazine maleate 10 mg 10 mg PO Q8H PRN nausea and 07/12/24 01/20/25 tablet vomiting or headache #30 tabs propranolol 10 mg tablet 10 mg PO BID #180 tabs 07/12/24 01/20/25 sumatriptan succinate 100 mg tablet See Rx Instructions PO .COMPLEX #9 07/12/24 01/20/25 tabs tirzepatide (weight loss) 5 mg/0.5 5 mg (0.5 mL) subcut QWEEK #6 mL 08/26/24 01/20/25 mL subcutaneous pen injector (Zepbound) folic acid 1 mg tablet 1 mg PO DAILY #90 tabs 09/01/24 01/20/25 bupropion HCl 200 mg tablet,12 hr 200 mg PO BID #180 tabs 09/13/24 01/20/25 sustained-release fluoxetine 20 mg capsule 20 mg PO QAM #90 caps 09/13/24 01/20/25 fluoxetine 40 mg capsule 40 mg PO QAM #90 caps 09/13/24 01/20/25 gabapentin 100 mg capsule 100 mg PO QHS 10/19/24 01/20/25 amlodipine 5 mg tablet 5 mg PO DAILY PRN Raynauds #90 tabs 11/22/24 01/20/25 pantoprazole 40 mg tablet,delayed 40 mg PO DAILY PRN heartburn #90 11/22/24 01/20/25 release (Protonix) tabs acetaminophen 500 mg tablet 500 mg PO QID PRN 01/18/25 01/20/25 (Acetaminophen Extra Strength) ceftriaxone 1 gram intravenous 1 g IV DAILY 01/18/25 01/20/25 solution hydromorphone 4 mg tablet 4 mg PO BID PRN 01/18/25 01/20/25 Previous Rx's ?Medication ?Instructions ?Recorded cyclobenzaprine 10 mg tablet 10 mg PO HS PRN muscle spasm #10 02/20/24 tabs prochlorperazine maleate 10 mg 10 mg PO Q8H PRN nausea and 07/12/24 tablet vomiting or headache #30 tabs propranolol 10 mg tablet 10 mg PO BID #180 tabs 07/12/24 sumatriptan succinate 100 mg tablet See Rx Instructions PO .COMPLEX #9 07/12/24 tabs tirzepatide (weight loss) 5 mg/0.5 5 mg (0.5 mL) subcut QWEEK #6 mL 08/26/24 mL subcutaneous pen injector (Zepbound) folic acid 1 mg tablet 1 mg PO DAILY #90 tabs 09/01/24 bupropion HCl 200 mg tablet,12 hr 200 mg PO BID #180 tabs 09/13/24 sustained-release fluoxetine 20 mg capsule 20 mg PO QAM #90 caps 09/13/24 fluoxetine 40 mg capsule 40 mg PO QAM #90 caps 09/13/24 amlodipine 5 mg tablet 5 mg PO DAILY PRN Raynauds #90 tabs 11/22/24 pantoprazole 40 mg tablet,delayed 40 mg PO DAILY PRN heartburn #90 11/22/24 release (Protonix) tabs Allergies Allergy/AdvReac Type Severity Reaction Status Date / Time vancomycin Allergy Intermediate Rash Verified 01/20/25 08:54 oxycodone HCl (From Percocet) AdvReac Unknown GI Upset Verified 01/20/25 08:54 General Stated Complaint: Headache JADEN: 2 Review of Systems Narrative: REVIEW OF SYSTEMS Negative for fever, cough, runny nose, sore throat, abdominal pain, or swelling. Exam Narrative Exam Narrative: PHYSICAL EXAM General Appearance: Lips and mucous membranes slightly dry. Uncomfortable appearing. Photophobic. Vital signs: BP 100/71, pulse 97, RR 20, temp 36.5, O2 sat 98% on room air. HEENT: Extraocular movements intact, hearing intact, pupils equal, round, reactive to light and accommodation. Respiratory: Lungs clear bilaterally. Cardiovascular: Heart regular rate and rhythm, no murmurs. Gastrointestinal: Normal bowel sounds. Nontender nondistended. Back, Musculoskeletal: 5 cm healing surgical wound on back, no significant erythema, mild swelling to the right, no fluctuance, no active drainage. Extremities: Upper extremities strength 5/5, sensation intact. Lower extremities strength 5/5. Skin: Warm and dry, no rash. Neurological: Normal. Cranial nerves intact. 5 out of 5 strength bilateral up per and lower extremities. Distal sensation intact all extremities. Course Vital Signs Vital signs: Vital Signs Temperature 36.5 C 01/20/25 08:53 Pulse 97 H 01/20/25 08:53 Respiratory Rate 20 01/20/25 08:53 Blood Pressure 100/71 01/20/25 08:53 Pulse Oximetry 98 01/20/25 08:53 Temperature 36.5 C 01/20/25 08:53 Temperature Source Oral 01/20/25 08:53 Pulse 97 H 01/20/25 08:53 Respiratory Rate 20 01/20/25 08:53 Blood Pressure 100/71 01/20/25 08:53 Blood Pressure Position Sitting 01/20/25 08:53 Pulse Oximetry 98 01/20/25 08:53 Oxygen Delivery Method Room Air 01/20/25 08:53 Oxygen Flow Rate 0 01/20/25 08:53 Pain Level 10 01/20/25 08:53 Lab/Test Results Lab/Test Results: 01/20/25 09:10 Blood Blood Culture - Pending 01/20/25 08:58 Blood Blood Culture - Pending Laboratory Tests Range/Units 01/20/25 09:10 WBC (4.4-10.8) 10^3/uL 5.61 RBC (3.93-5.22) 10^6/uL 4.34 Hgb (11.2-15.7) g/dL 13.0 Hct (36.0-46.0) % 38.8 MCV (80-95) fL 89 MCH (27.0-33.0) pg 30.0 MCHC (32.0-36.0) % 33.5 RDW (11.7-14.6) % 12.9 Plt Count (130-400) 10^3/uL 253 MPV (8.0-11.0) fL 8.7 Immature Gran % % 0.2 Neutrophils % % 72.1 Lymphocytes % % 18.7 Monocytes % % 7.3 Eosinophils % % 1.2 Basophils % % 0.5 Nucleated RBC % (0.0-0.3) % 0.0 Absolute Neutrophils (1.2-6.7) 10^3/uL 4.04 Absolute Lymphocytes (1.2-3.4) 10^3/uL 1.05 L Absolute Monocytes (0.1-0.8) 10^3/uL 0.41 Absolute Eosinophils (0.0-0.7) 10^3/uL 0.07 Absolute Basophils (0.0-0.2) 10^3/uL 0.03 Medical Decision Making ASSESSMENT AND PLAN Initial Assessment: 44-year-old female with severe vice post production assistant headache, posterior neck pain, light sensitivity, and vomiting. Recent lumbar surgery complicated by postoperative staph infection, currently on antibiotics. Differential Diagnosis: - Meningitis: Concern due to recent lumbar surgery and infection. Lumbar puncture contraindicated. Initiate empiric antibiotics. Plan to obtain CT imaging. - Acute subarachnoid hemorrhage: Considered due to severe headache. Plan to obtain CT imaging. - Migraine headache: History of migraines, but current headache differs from usual. Add to differential diagnosis. ED Course: - Reviewed vital signs: BP 100/71, Pulse 97, RR 20, Temp 36.5, SpO2 98% on room air. - Physical exam: Regular heart rate and rhythm, clear lungs, normal bowel sounds, no tenderness, pale appearance, dry mucous membranes, 5 cm healing surgical wound with no significant erythema or tenderness, no active drainage. - Meningeal tests: Negative Brudzinski. - Neurological exam: 5/5 strength and sensation in all extremities, sensation intact throughout, pupils equal and reactive to light, extraocular movements intact, hearing intact. - Blood work: Check for anemia and other abnormalities. - CT scan: Plan to rule out acute subarachnoid hemorrhage and other causes. - [place] [facility] Recommended nafcillin 2 g every 4 hours, but due to unavailability, will use oxaxicillin. - Pain management: Patient received Compazine and Benadryl IV. - Updated course: History of rash with vancomycin, discussed treatment options, provided informed consent for trial of vancomycin at slow rate after Benadryl. - Reviewed outside hospital medical record: Cultures from drainage grew MSSA, hemoglobin low but stable. - Reassessment at 1102: Still having pain, administered additional analgesic - diluadid IV. - CTA head interpreted by radiology: No acute intracranial process. Final Assessment: Severe headache with concern for meningitis and acute subarachnoid hemorrhage. Postoperative staph infection improving. Initiated empiric antibiotics and pain management. Plan to hospitalize for further treatment. Clinical Impression: - Potential meningitis - Severe headache - Postoperative infection - Migraine headache Disposition: - Hospitalize for further treatment. MDM Components Evaluation: - Number of Differential Diagnoses or Management Options: Meningitis, acute subarachnoid hemorrhage, migraine headache. - Amount and Complexity of Data Reviewed: Vital signs, physical exam, neurological exam, blood work, CT scan, consultation with infectious disease, outside hospital medical record. - Risk of Complication and Morbidity or Mortality: High due to potential meningitis, severe headache, and recent postoperative infection. This document was written with the assistance of LAINEY Flood. The patient consented to its use. Lab Data Lab results reviewed: Yes I reviewed the patient's lab results. Labs: 01/20/25 09:50 Blood Blood Culture - Pending 01/20/25 09:10 Blood Blood Culture - Pending Laboratory Tests Range/Units 01/20/25 01/20/25 09:10 09:37 WBC (4.4-10.8) 10^3/uL 5.61 RBC (3.93-5.22) 10^6/uL 4.34 Hgb (11.2-15.7) g/dL 13.0 Hct (36.0-46.0) % 38.8 MCV (80-95) fL 89 MCH (27.0-33.0) pg 30.0 MCHC (32.0-36.0) % 33.5 RDW (11.7-14.6) % 12.9 Plt Count (130-400) 10^3/uL 253 MPV (8.0-11.0) fL 8.7 Immature Gran % % 0.2 Neutrophils % % 72.1 Lymphocytes % % 18.7 Monocytes % % 7.3 Eosinophils % % 1.2 Basophils % % 0.5 Nucleated RBC % (0.0-0.3) % 0.0 Absolute Neutrophils (1.2-6.7) 10^3/uL 4.04 Absolute Lymphocytes (1.2-3.4) 10^3/uL 1.05 L Absolute Monocytes (0.1-0.8) 10^3/uL 0.41 Absolute Eosinophils (0.0-0.7) 10^3/uL 0.07 Absolute Basophils (0.0-0.2) 10^3/uL 0.03 Sodium (136-145) mmol/L 139 Potassium (3.5-5.1) mmol/L 3.9 Chloride (98-107) mmol/L 103 Carbon Dioxide (21.0-32.0) mmol/L 26.4 Anion Gap (3-11) mmol/L 9.6 BUN (7-18) mg/dL 10 Creatinine (0.55-1.02) mg/dL 0.9 Est GFR (CKD-EPI 2020) (mL/min/1.73m2) 81.86 Glucose (74-106) mg/dL 82 Calcium (8.5-10.1) mg/dL 9.1 Total Bilirubin (0.2-1.0) mg/dL 0.40 AST (15-37) U/L 16 ALT (14-59) U/L 19 Alkaline Phosphatase (46-116) U/L 61 Total Protein (6.4-8.2) g/dL 7.2 Albumin (3.4-5.0) g/dL 3.5 Serum HCG, Qual Negative COVID-19 Source Nasopharynx SARS-CoV-2 (PCR) (Negative) Negative Influenza Type A (PCR) (Negative) Negative Influenza Type B (PCR) (Negative) Negative RSV (PCR) (Negative) Negative Quality:SDOH Health Related Social Needs: No Data to Display PFSH All Active Problems (Updated 01/20/25 @ 13:08 by CHRIS MCCOLLUM) Headache (Acute) Meningitis (Acute) Infection following a procedure, deep incisional surgical site, initial encounter (Acute) Adjustment disorder with mixed anxiety and depressed mood (Acute) Herniated lumbar intervertebral disc (Acute ~09/06/24) APD Neurosurgery 09/06/24 Folate deficiency (Acute ~08/2024) Angiomyolipoma of left kidney (Acute ~08/2023) Raynaud phenomenon (Acute) 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 Adjustment disorder (Chronic) Chronic pain (Chronic) 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 factors (Acute) GERD (gastroesophageal reflux disease) (Chronic 11/28/16) Obesity (BMI 30.0-34.9) (Chronic ~05/2024) Lumbar spondylosis (Acute) [facility] 03/16/24 Lumbar disc herniation with radiculopathy (Acute) Lumbar pain with radiation down right leg (Acute) Acute lumbar myofascial strain (Acute) Memory changes (Acute) Vertigo (Acute 11/28/16) Migraine headache without aura (Acute) Migraine headache with aura (Acute) Chronic daily headache (Acute) Abnormal EKG (Acute ~08/2023) Depression (Chronic) Breast cancer screening by mammogram (Acute) Postprandial abdominal pain in right upper quadrant (Acute) Ilioinguinal neuralgia of right side (Acute) Sacroiliac joint dysfunction of right side (Acute) Ischial bursitis of right side (Acute) LLQ abdominal pain (Acute) Injury of nerve of right lower extremity (Acute) Trochanteric bursitis of right hip (Acute) Labral tear of right hip joint (Acute ~03/2021) Raynauds disease (Acute) Podiatry 12/2020; RX Amlodipine Elevated serum creatinine (Acute) Vitamin D deficiency (Acute) Anxiety (Chronic) IUD surveillance (Acute 01/03/16) Mirena IUD placed 07/2012, replaced 09/04/18 Medical History Gluteal tendinitis of right buttock Pelvic congestion syndrome Kidney stone Cyst of right breast Incomplete bladder emptying Numbness in right leg s/p neurosurgery x2 (posterior R knee and last 2 toes, foot pad) Pruritic rash Derm ([place]); Biopsy ([place]) Post concussive syndrome Concussion With post-concussive syndrome; FMLA Lower extremity edema Post laminectomy syndrome (11/28/16) Lumbar radicular syndrome (11/28/16) Low back pain (11/28/16) Insomnia (11/28/16) Folliculitis (11/28/16) Degeneration of lumbar intervertebral disc with acute herniation (11/28/16) s/p 2 back surgeries Surgical History History of hip surgery (~08/2022) [facility]--1. Arthroscopic labral debridement, CPT# 10694 2. Arthroscopic femoroplasty, CPT# 61306 3. Endoscopic iliotibial band release, CPT# 17066 4. Endoscopic trochanteric bursectomy, CPT# 90203 laminectomy (12/11/12) Dr. Santoyo 2011-[place]16[place] [facility] [place] (03/29/11[place] (R) L5-S1 microsurg decom discectomy - 2nd Surgery (R) L5-S1 discectomy and decompression 02/11 Family History Mother Essential hypertension Arthritis Depression Hyperlipidemia Psoriasis Anxiety Heart disease Hypertension Brother Alcohol abuse Anxiety Depression Mental disorder Grandfather Essential hypertension Heart disease Hyperlipidemia Neoplasm Prostate cancer Grandmother Essential hypertension Depression Heart disease Hyperlipidemia Emphysema lung Anxiety Cancer Hypertension Father Alcohol abuse Other Breast cancer Social History Smoking/Tobacco Use Status: Former Tobacco Use Smoking risk assessment performed?: Yes Alcohol Intake: never Drug use: Never Substance use type: does not use Adopted: No Caregiver/Support person: No Foster care: No Household members: spouse and children Housing: house Number of Children: 2 Communication Needs: None Education Level: college Do you need help understanding health information?: Never 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 Pets and animals: Yes (4) Pets and animals: cat(s) Sexually active: Yes Do you think of yourself as: straight/heterosexual Current gender identity: female What is your relationship status?: How often do you talk on the phone with friends or family?: once per week How often do you get together with friends or relatives?: once per week Do you belong to any clubs or organized social groups?: no Panel score (0-1 are the most socially isolated patients): 1 What type of physical activity do you participate in: bicycling, regular exercise, swimming and resistance training Duration: 60-90 minutes/day Frequency: 5-6 times per week Special miki needs: No Seatbelt use: always Helmet use: Yes Helmet use: always Drive intox or ride w/intox otr truck driver: No Working smoke detector in home: Yes Fire extinguisher in home: Yes Carbon monox detector in home: Yes Firearms in home: No Do you feel safe at home: Yes Do you feel safe in your relationship?: Yes Victim of physical abuse: No Victim of emotional abuse: No Victim of sexual abuse: No Female Reproductive History Menstrual control method: progestin IUCD (Mirena lot# [id number] exp 01/2021) History History 2 Para Hx # Term Pregnancies Multiple births Hx # Pregnancies Ectopic pregnancies AB induced Hx Number of Living Children AB spontaneous
[2025-01-20 09:52] LABS: ALT 19 U/L (14-59); AST 16 U/L (15-37); Albumin 3.5 g/dL (3.4-5.0); Alkaline Phosphatase 61 U/L (46-116); Anion Gap 9.6 mmol/L (3-11); BUN 10 mg/dL (7-18); CO2 26.4 mmol/L (21.0-32.0); CREATININE 0.9 mg/dL (0.55-1.02); Calcium 9.1 mg/dL (8.5-10.1); Chloride 103 mmol/L (98-107); Estimated GFR 81.86 (mL/min/1.73m2); Glucose 82 mg/dL (74-106); Potassium 3.9 mmol/L (3.5-5.1); Sodium 139 mmol/L (136-145); Total Protein 7.2 g/dL (6.4-8.2)
[2025-01-20 10:03] LABS: HCG Qual (Serum) Negative
[2025-01-20 10:22] LABS: COVID-19 PCR Negative (Negative); Influenza A PCR Negative (Negative); Influenza B PCR Negative (Negative); RSV PCR Negative (Negative)
[2025-01-20 10:24] LABS: Source Nasopharynx
[2025-01-20] MEDS: Normal Saline - Diluent 50 ML VIAL IJ (10:25)
[2025-01-20] MEDS: Omnipaque 350 MG/ML 500 ML BTL-Imaging package 70 ML IJ (10:26)
[2025-01-20] MEDS: HYDROmorphone 2 MG/ML SYR 1 MG IVP (11:04)
--- NOTE | 2025-01-20 11:41 | W.PM.HP.N ---
Date of service: 01/20/25 Time of Service: 11:41 Assessment and Plan Assessment and plan (1) Meningitis: Status: Acute Assessment and plan: -suspected given new presentation of headaches and surgical site infection with MSSA being treated with CTX, suspecious for meningitis -however, unable to perform lumbar puncture given surgical site wound infection -apprecaite [facility] recs; continue oxacillin 2g Q4hr, if headaches improve/resolve can DC with PICC line and oxacillin -head CT without acute findings -if patients condition does not improve or gets worse will reach back out to [facility] for further guidance (2) Headache: Status: Acute Assessment and plan: -as noted above (3) Infection following a procedure, deep incisional surgical site, initial encounter: Status: Acute Assessment and plan: -as noted above (4) Adjustment disorder with mixed anxiety and depressed mood: Status: Acute Assessment and plan: -continue home bupropion, fluoxetine (5) Raynaud phenomenon: Status: Acute Assessment and plan: -continue PRN CCB (6) Chronic pain: Status: Chronic Assessment and plan: continue home hydromorphone 4mg BID PRN History of Present Illness History of Present Illness Chief Complaint: headaches Narrative: 44yo female with PMH migraines, s/p lumbar laminectomy on 12/26/2024 and subsequent post-op wound infection currently on home IV CTX through PICC line who presents to the ED with complaints of a severe headache. Patient states that starting about a day and a half ago she started having a severe vice web solutions architect-like headache origniating from her neck and radiating around her head which she states is a different presentaiton from her usual migraines. She also complains of associated neck pain and light sensitivity, but no neck stiffness, fevers, nausea, vomiting, focal meurological deficits or visual changes or new discharge from her surgical site wound. Of note, her wound culture was growing MSSA and she has been on CTX. In the ED she was noted to have normal vital signs and physical exam with notably negative meningeal signs. Head CT was done and did not show any signs of acute intracranial processes.ED physician discussed the case with ID at [facility] who recommended 2g Q4hr nafcillin (which is not on formulary) so patient was started on 2g Q4hr oxicillin. They also recommended monitoring the patient for improvement/resolution of her new headaches and if they improved she could continue outpatient treatment with the oxacillin. At which time emergency room physican paged hospitalist for admission of a patient with post-operative wound infection and suspected MSSA meningitis. 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 Adjustment disorder (Chronic) Chronic pain (Chronic) 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 factors (Acute) GERD (gastroesophageal reflux disease) (Chronic 11/28/16) Obesity (BMI 30.0-34.9) (Chronic ~05/2024) Lumbar spondylosis (Acute) [facility] 03/16/24 Lumbar disc herniation with radiculopathy (Acute) Lumbar pain with radiation down right leg (Acute) Acute lumbar myofascial strain (Acute) Memory changes (Acute) Vertigo (Acute 11/28/16) Migraine headache without aura (Acute) Migraine headache with aura (Acute) Chronic daily headache (Acute) Abnormal EKG (Acute ~08/2023) Depression (Chronic) Breast cancer screening by mammogram (Acute) Postprandial abdominal pain in right upper quadrant (Acute) Ilioinguinal neuralgia of right side (Acute) Sacroiliac joint dysfunction of right side (Acute) Ischial bursitis of right side (Acute) LLQ abdominal pain (Acute) Injury of nerve of right lower extremity (Acute) Trochanteric bursitis of right hip (Acute) Labral tear of right hip joint (Acute ~03/2021) Raynauds disease (Acute) Podiatry 12/2020; RX Amlodipine Elevated serum creatinine (Acute) Vitamin D deficiency (Acute) Anxiety (Chronic) IUD surveillance (Acute 01/03/16) Mirena IUD placed 07/2012, replaced 09/04/18 Medical History Gluteal tendinitis of right buttock Pelvic congestion syndrome Kidney stone Cyst of right breast Incomplete bladder emptying Numbness in right leg s/p neurosurgery x2 (posterior R knee and last 2 toes, foot pad) Pruritic rash Derm ([facility]); Biopsy ([facility]) Post concussive syndrome Concussion With post-concussive syndrome; FMLA Lower extremity edema Post laminectomy syndrome (11/28/16) Lumbar radicular syndrome (11/28/16) Low back pain (11/28/16) Insomnia (11/28/16) Folliculitis (11/28/16) Degeneration of lumbar intervertebral disc with acute herniation (11/28/16) s/p 2 back surgeries Surgical History History of hip surgery (~08/2022) [facility] [employer] [facility]--1. Arthroscopic labral debridement, CPT# 32870 2. Arthroscopic femoroplasty, CPT# 42023 3. Endoscopic iliotibial band release, CPT# 44890 4. Endoscopic trochanteric bursectomy, CPT# 56747 laminectomy (12/11/12) Dr. Santoyo 2010-[place], [place] Laminotomy 12/16/24 [facility] Discectomy (03/29/11) (R) L5-S1 microsurg decom discectomy - 2nd Surgery (R) L5-S1 discectomy and decompression 02/11 Family History Mother Essential hypertension Arthritis Depression Hyperlipidemia Psoriasis Anxiety Heart disease Hypertension Brother Alcohol abuse Anxiety Depression Mental disorder Grandfather Essential hypertension Heart disease Hyperlipidemia Neoplasm Prostate cancer Grandmother Essential hypertension Depression Heart disease Hyperlipidemia Emphysema lung Anxiety Cancer Hypertension Father Alcohol abuse Other Breast cancer Social History Smoking/Tobacco Use Status: Former Tobacco Use Smoking risk assessment performed?: Yes Alcohol Intake: never Drug use: Never Substance use type: does not use Adopted: No Caregiver/Support person: No Foster care: No Household members: spouse and children Housing: house Number of Children: 2 Communication Needs: None Education Level: college Do you need help understanding health information?: Never 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 Pets and animals: Yes (4) Pets and animals: cat(s) Sexually active: Yes Do you think of yourself as: straight/heterosexual Current gender identity: female What is your relationship status?: How often do you talk on the phone with friends or family?: once per week How often do you get together with friends or relatives?: once per week Do you belong to any clubs or organized social groups?: no Panel score (0-1 are the most socially isolated patients): 1 What type of physical activity do you participate in: bicycling, regular exercise, swimming and resistance training Duration: 60-90 minutes/day Frequency: 5-6 times per week Special miki needs: No Seatbelt use: always Helmet use: Yes Helmet use: always Drive intox or ride w/intox taxi driver: No Working smoke detector in home: Yes Fire extinguisher in home: Yes Carbon monox detector in home: Yes Firearms in home: No Do you feel safe at home: Yes Do you feel safe in your relationship?: Yes Victim of physical abuse: No Victim of emotional abuse: No Victim of sexual abuse: No Female Reproductive History Menstrual control method: progestin IUCD (Mirena lot# [id number] exp 01/2021) History History 2 Para Hx # Term Pregnancies Multiple births Hx # Pregnancies Ectopic pregnancies AB induced Hx Number of Living Children AB spontaneous Meds Allergies and Home Medications Allergies Allergy/AdvReac Type Severity Reaction Status Date / Time vancomycin Allergy Intermediate Rash Verified 01/20/25 08:54 oxycodone HCl (From Percocet) AdvReac Unknown GI Upset Verified 01/20/25 08:54 Home Medications ?Medication ?Instructions ?Recorded ?Confirmed ?Type cyclobenzaprine 10 mg tablet 10 mg PO HS PRN muscle spasm #10 02/20/24 01/20/25 Rx tabs prochlorperazine maleate 10 mg 10 mg PO Q8H PRN nausea and 07/12/24 01/20/25 Rx tablet vomiting or headache #30 tabs propranolol 10 mg tablet 10 mg PO BID #180 tabs 07/12/24 01/20/25 Rx sumatriptan succinate 100 mg tablet See Rx Instructions PO .COMPLEX #9 07/12/24 01/20/25 Rx tabs tirzepatide (weight loss) 5 mg/0.5 5 mg (0.5 mL) subcut QWEEK #6 mL 08/26/24 01/20/25 Rx mL subcutaneous pen injector (Zepbound) folic acid 1 mg tablet 1 mg PO DAILY #90 tabs 09/01/24 01/20/25 Rx bupropion HCl 200 mg tablet,12 hr 200 mg PO BID #180 tabs 09/13/24 01/20/25 Rx sustained-release fluoxetine 20 mg capsule 20 mg PO QAM #90 caps 09/13/24 01/20/25 Rx fluoxetine 40 mg capsule 40 mg PO QAM #90 caps 09/13/24 01/20/25 Rx gabapentin 100 mg capsule 100 mg PO QHS 10/19/24 01/20/25 History amlodipine 5 mg tablet 5 mg PO DAILY PRN Raynauds #90 tabs 11/22/24 01/20/25 Rx pantoprazole 40 mg tablet,delayed 40 mg PO DAILY PRN heartburn #90 11/22/24 01/20/25 Rx release (Protonix) tabs acetaminophen 500 mg tablet 500 mg PO QID PRN 01/18/25 01/20/25 History (Acetaminophen Extra Strength) ceftriaxone 1 gram intravenous 1 g IV DAILY 01/18/25 01/20/25 History solution hydromorphone 4 mg tablet 4 mg PO BID PRN 01/18/25 01/20/25 History Exam Narrative Exam Narrative: well appearing female laying in bed in no acute distress, AOx4, normal chin to chest, no pain with palpation or movement of neck, heart RRR, lungs CTAB, abdomen soft, non-tender, non-distended Results Labs 01/20/25 09:10 01/20/25 09:10 Labs: Laboratory Results - last 24 hr 01/20/25 01/20/25 09:10 09:37 WBC 5.61 RBC 4.34 Hgb 13.0 Hct 38.8 MCV 89 MCH 30.0 MCHC 33.5 RDW 12.9 Plt Count 253 MPV 8.7 Immature Gran % 0.2 Neutrophils % 72.1 Lymphocytes % 18.7 Monocytes % 7.3 Eosinophils % 1.2 Basophils % 0.5 Nucleated RBC % 0.0 Absolute Neutrophils 4.04 Absolute Lymphocytes 1.05 L Absolute Monocytes 0.41 Absolute Eosinophils 0.07 Absolute Basophils 0.03 Sodium 139 Potassium 3.9 Chloride 103 Carbon Dioxide 26.4 Anion Gap 9.6 BUN 10 Creatinine 0.9 Est GFR (CKD-EPI 2020) 81.86 Glucose 82 Calcium 9.1 Total Bilirubin 0.40 AST 16 ALT 19 Alkaline Phosphatase 61 Total Protein 7.2 Albumin 3.5 Serum HCG, Qual Negative COVID-19 Source Nasopharynx SARS-CoV-2 (PCR) Negative Influenza Type A (PCR) Negative Influenza Type B (PCR) Negative RSV (PCR) Negative Last Vital Signs Temp 97.7 F 01/20/25 08:53 Pulse 97 H 01/20/25 08:53 Resp 20 01/20/25 08:53 BP 100/71 01/20/25 08:53 Pulse Ox 98 01/20/25 08:53 Time Spent Time spent with Patient: >75 minutes Time was spent: preparing to see the patient(eg.review tests), obtaining and/or reviewing separately otained hiistory, ordering medications,tests, procedures, referring, communicating with other health anesthesiologist and critical care, indepentently interpreting results, counseling the patient and care coordination
--- NOTE | 2025-01-20 14:03 | W.PC.ACHO ---
Registration Status: Primary Language: Preferred Language: ED Information & Data Chief Complaint Headache 01/20/25 10:37 Chief Complaint Headache 01/20/25 09:49 Triage Note 1.5 days of headache Feels 01/20/25 08:53 like a vice survey data technician and posterior neck pain, gradually getting worse. Vomitted, light sensitivity. H/O headaches but nothing like this, denies fevers. Recent surgery to lumbar spine Medical / Surgical History (Last Reviewed 01/20/25 @ 11:08 by Oskar Byrd MD) Gluteal tendinitis of right buttock Pelvic congestion syndrome Kidney stone Cyst of right breast Incomplete bladder emptying Numbness in right leg Pruritic rash Post concussive syndrome Concussion Lower extremity edema Post laminectomy syndrome (11/28/16) Lumbar radicular syndrome (11/28/16) Low back pain (11/28/16) Insomnia (11/28/16) Folliculitis (11/28/16) Degeneration of lumbar intervertebral disc with acute herniation (11/28/16) (Last Reviewed 01/20/25 @ 11:08 by Oskar Byrd MD) History of hip surgery (~08/2022) laminectomy (12/11/12) Discectomy (03/29/11) Most Recent Vital Signs Temperature 37.3 C 01/20/25 13:14 Temperature Source Temporal Artery Scan 01/20/25 13:14 Pulse 73 01/20/25 13:14 Respiratory Rate 18 01/20/25 13:14 Blood Pressure 92/60 L 01/20/25 13:14 Blood Pressure Mean 72 01/20/25 12:45 Blood Pressure Position Sitting 01/20/25 08:53 Pulse Oximetry 95 01/20/25 13:14 Oxygen Delivery Method Room Air 01/20/25 13:14 Oxygen Flow Rate 0 01/20/25 13:14 Pain Level 2 01/20/25 13:14 Allergies vancomycin Allergy (Intermediate, Verified 01/20/25 08:54) Rash oxycodone HCl (From Percocet) Adverse Reaction (Unknown, Verified 01/20/25 08:54) GI Upset Active Medications Generic Name Dose Route Start Last Admin Trade Name Freq PRN Reason Stop Dose Admin Ringer's Solution 1,000 mls @ 125 mls/hr 01/20/25 09:30 01/20/25 09:34 IV 125 mls/hr INFUSION GISEL Administration Iohexol 70 ml 01/20/25 10:30 01/20/25 10:26 Omnipaque 350 Mg/Ml 500 Ml Btl-Imaging Package IJ 02/19/25 23:59 70 ml DIRECTED GISEL Administration Sodium Chloride 50 ml 01/20/25 10:30 01/20/25 10:25 Normal Saline - Diluent 50 Ml Vial IJ 50 ml .FOR DI USE GISEL Administration IV IV Catheter Type [Left Peripheral IV Antecubital] IV Catheter Gauge [Left 18 Antecubital] Diet Orders Category Date Time Status Regular/Normal [DIET] Nutrition 01/20/25 Lunch Active Diagnostics 01/20/25 01/20/25 Range/Units 09:37 09:10 WBC 5.61 (4.4-10.8) 10^3/uL RBC 4.34 (3.93-5.22) 10^6/uL Hgb 13.0 (11.2-15.7) g/dL Hct 38.8 (36.0-46.0) % MCV 89 (80-95) fL MCH 30.0 (27.0-33.0) pg MCHC 33.5 (32.0-36.0) % RDW 12.9 (11.7-14.6) % Plt Count 253 (130-400) 10^3/uL MPV 8.7 (8.0-11.0) fL Immature Gran % 0.2 % Neutrophils % 72.1 % Lymphocytes % 18.7 % Monocytes % 7.3 % Eosinophils % 1.2 % Basophils % 0.5 % Nucleated RBC % 0.0 (0.0-0.3) % Absolute Neutrophils 4.04 (1.2-6.7) 10^3/uL Absolute Lymphocytes 1.05 L (1.2-3.4) 10^3/uL Absolute Monocytes 0.41 (0.1-0.8) 10^3/uL Absolute Eosinophils 0.07 (0.0-0.7) 10^3/uL Absolute Basophils 0.03 (0.0-0.2) 10^3/uL Sodium 139 (136-145) mmol/L Potassium 3.9 (3.5-5.1) mmol/L Chloride 103 (98-107) mmol/L Carbon Dioxide 26.4 (21.0-32.0) mmol/L Anion Gap 9.6 (3-11) mmol/L BUN 10 (7-18) mg/dL Creatinine 0.9 (0.55-1.02) mg/dL Est GFR (CKD-EPI 2020) 81.86 (mL/min/1.73m2) Glucose 82 (74-106) mg/dL Calcium 9.1 (8.5-10.1) mg/dL Total Bilirubin 0.40 (0.2-1.0) mg/dL AST 16 (15-37) U/L ALT 19 (14-59) U/L Alkaline Phosphatase 61 (46-116) U/L Total Protein 7.2 (6.4-8.2) g/dL Albumin 3.5 (3.4-5.0) g/dL Serum HCG, Qual Negative COVID-19 Source Nasopharynx SARS-CoV-2 (PCR) Negative (Negative) Influenza Type A (PCR) Negative (Negative) Influenza Type B (PCR) Negative (Negative) RSV (PCR) Negative (Negative) 01/20/25 09:50 Blood Culture - Pending Blood 01/20/25 09:10 Blood Culture - Pending Blood Intake and Output - 24 Hour Total 01/20/25 08:39 thru 01/20/25 11:50 Intake Total 60 Balance 60 Weight 65.771 kg Intake: IV 60 Falls Risk Assessment History of Falls No History 01/20/25 10:37 Contributing Factors No Factors 01/20/25 10:37 Ambulatory Aids Independent 01/20/25 10:37 Tubes/Lines None 01/20/25 10:37 Gait Evaluation No gait disturbance 01/20/25 10:37 Cognition No cognitive impairment 01/20/25 10:37 Fall Total Score 0 01/20/25 10:37 Level of Risk Standard/Low Risk 01/20/25 10:37 Problems (Last Reviewed 01/20/25 @ 11:08 by Oskar Byrd MD) Headache (Acute) Meningitis (Acute) v v v v v v v v v Sending and/or Receiving Nurses: Please use comment section below to note any information pertinent to the patient hand-off not included above. Information / Comments: patient received AxOx4, VSS, 2/10 pain (tolerable), stable, dsg C/D/I Report received from: Marvel VALERIO in ED at 1250
--- NOTE | 2025-01-20 14:23 | NUR.NOTE ---
report received from Marvel VALERIO in ED, pt arrive around 1300, AxOx4, reports pain 2/10 which is tolerable, lumbar spine incision is C/D/I and dsg changed this AM by spouse, has R single lumen PICC for at home abx, will ok with MD for use, patient oriented to room and staff, eating lunch at this time, denies further needs, assessment negative, on IVF for hydration and IV abx Q4 hours. Bed low/locked, call hermosillo in reach. Nursing Note:
[2025-01-20] MEDS: Acetaminophen 325 MG TAB PO (15:19)
[2025-01-20] MEDS: HYDROmorphone 4 MG TAB PO (16:19)
[2025-01-20] MEDS: Oxacillin 2 GM VIAL 2000 MG (20:30)
[2025-01-20] MEDS: Normal Saline Flush 10 ML SYR IVP (20:33)
[2025-01-21 03:11] VITALS: BP 96/59; PULSE 72; RESP 20; TEMP 36.4; O2SAT 97
[2025-01-21] MEDS: Normal Saline Flush 10 ML SYR IVP ×3 (04:56→20:02)
[2025-01-21] MEDS: Acetaminophen 325 MG TAB PO ×2 (05:17→20:01)
[2025-01-21 06:43] LABS: HCT 31.9 % (36.0-46.0); HGB 10.3 g/dL (11.2-15.7); MCH 29.9 pg (27.0-33.0); MCHC 32.3 % (32.0-36.0); MCV 93 fL (80-95); MPV 8.7 fL (8.0-11.0); Platelet Count 179 10^3/uL (130-400); RBC 3.45 10^6/uL (3.93-5.22); RDW 13.2 % (11.7-14.6); RDW-SD 43.5 fL; WBC 3.43 10^3/uL (4.4-10.8)
[2025-01-21 07:05] LABS: Anion Gap 7.2 mmol/L (3-11); BUN 11 mg/dL (7-18); CO2 28.8 mmol/L (21.0-32.0); CREATININE 0.8 mg/dL (0.55-1.02); Calcium 8.2 mg/dL (8.5-10.1); Chloride 106 mmol/L (98-107); Estimated GFR 94.28 (mL/min/1.73m2); Glucose 82 mg/dL (74-106); Potassium 3.7 mmol/L (3.5-5.1); Sodium 142 mmol/L (136-145)
[2025-01-21 08:16] VITALS: BP 92/54; PULSE 77; RESP 18; TEMP 36.6; O2SAT 99
[2025-01-21] MEDS: FLUoxetine 20 MG CAP 60 MG PO (08:16)
[2025-01-21] MEDS: Enoxaparin 40 MG/0.4 ML SYR SC (08:16)
[2025-01-21] MEDS: Folic Acid 1 MG TAB PO (08:22)
--- NOTE | 2025-01-21 09:26 | PDOC.CMIN ---
Date of service: 01/21/25 Time of Service: 09:27 Care Management Initial Assmt Initial Assessment Reason for Hospitalization: MSSA Meningitis Functional Status/Living Situation Patient Presentation: Janey was lying in bed when CM met with her. She was alert and oriented and easily engaged with CM. Janey was admitted yesterday with possible MSSA meningitis which developed from a post-operative wound infection from back surgery.She had been treated with Ceftriaxone at home but was not improving. She is now receivig Oxacillin. CM has been in contact with [facility] who provided the Ceftriaxone inform them of the change in order. They explained they would need to get a new prior authorization as the antibiotic has changed. Janey informed CM that she would really like to go home today but it is not likely. According to [facility], they will do their best to coordinate everything for tomorrow but it may be as late as Friday. CM communicated this to Janey who understood. Janey lives in a single family home in [place] with her and 2 children. 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 Town of Residence: [place], [place] Resides with: Spouse (Farrukh) Employment Status: Employed (OR Nurse at [employer]) Instrumental Activities of Daily Living (ADLs): Independent Medications Medication Management: No Issues/Barriers identified Advance Directives Advance Directives: Do you have an Advance Directive: N 12/25/18 13:33 AD On File at [employer]: N 12/25/18 13:33 Date Asked 01/20/25 01/20/25 08:41 AD Date Reviewed COLST On File at [facility] COLST Date Scanned Code Status Resuscitation Status Full Code Insurance Coverage/Financial Issues Insurance: [employer] [facility] Care Team Visit Care Team Role Provider Type Altagracia Good NP Primary Care Provider NURSE PRACTITIONER Oskar Byrd MD Emergency Provider [employer] STAFF PHYSICIAN Nima Samson MD Admit Provider [employer] [facility] STAFF PHYSICIAN Attending Provider Discharge Potential Discharge Needs: PCP F/U Appt Anticipated Barriers to Discharge: None Identified Patient/Family Education Needs: Review discharge instructions, discuss Ask Me Three Transportation: Private vehicle Plan: Anticipate Janey will be discharged home with a resumption of home health nursing for home IV antibiotic infusions. The Infusion company providing the antibiotics is [facility]. She will follow up with her surgeon and PCP and transport with family. CM will follow and continue to support discharge planning efforts. Social Determinants of Health Screening Social Determinants of Health last assessed: 01/21/25 Will the Patient Participate in the Screening?: Yes Do you worry about having a steady place to live?: no Problems where you live: no known problems In the past 12 months, have you had to go without electric, gas, oil or water in your home?: no Have you or anyone in your house had to go without enough food to eat?: no Has lack of transportation kept you from medical appointments or from doing things needed for daily living?: no Has anyone in your life made you feel unsafe or unsupported?: no How hard is it for you to pay for the very basics like food, housing, medical care, and heating? Would you say it is:: Not hard at all Do you want help finding or keeping work or a job?: I do not need or want help If for any reason you need help with day-to-day activities such as bathing, preparing meals, shopping, managing finances, etc., do you get the help you need?: I don?t need any help How often do you feel lonely or isolated from those around you?: Never Do you speak a language other than Kiswahili at home?: No Does the patient want assistance with any of the above?: No PFSH All Active Problems (Updated 01/20/25 @ 13:08 by CHRIS MCCOLLUM) Headache (Acute) Meningitis (Acute) Infection following a procedure, deep incisional surgical site, initial encounter (Acute) Adjustment disorder with mixed anxiety and depressed mood (Acute) Herniated lumbar intervertebral disc (Acute ~09/06/24) APD Neurosurgery 09/06/24 Folate deficiency (Acute ~08/2024) Angiomyolipoma of left kidney (Acute ~08/2023) Raynaud phenomenon (Acute) 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 Adjustment disorder (Chronic) Chronic pain (Chronic) 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 factors (Acute) GERD (gastroesophageal reflux disease) (Chronic 11/28/16) Obesity (BMI 30.0-34.9) (Chronic ~05/2024) Lumbar spondylosis (Acute) [facility] 03/16/24 Lumbar disc herniation with radiculopathy (Acute) Lumbar pain with radiation down right leg (Acute) Acute lumbar myofascial strain (Acute) Memory changes (Acute) Vertigo (Acute 11/28/16) Migraine headache without aura (Acute) Migraine headache with aura (Acute) Chronic daily headache (Acute) Abnormal EKG (Acute ~08/2023) Depression (Chronic) Breast cancer screening by mammogram (Acute) Postprandial abdominal pain in right upper quadrant (Acute) Ilioinguinal neuralgia of right side (Acute) Sacroiliac joint dysfunction of right side (Acute) Ischial bursitis of right side (Acute) LLQ abdominal pain (Acute) Injury of nerve of right lower extremity (Acute) Trochanteric bursitis of right hip (Acute) Labral tear of right hip joint (Acute ~03/2021) Raynauds disease (Acute) Podiatry 12/2020; RX Amlodipine Elevated serum creatinine (Acute) Vitamin D deficiency (Acute) Anxiety (Chronic) IUD surveillance (Acute 01/03/16) Mirena IUD placed 07/2012, replaced 09/04/18 Medical History Gluteal tendinitis of right buttock Pelvic congestion syndrome Kidney stone Cyst of right breast Incomplete bladder emptying Numbness in right leg s/p neurosurgery x2 (posterior R knee and last 2 toes, foot pad) Pruritic rash Derm ([facility]); Biopsy ([facility]) Post concussive syndrome Concussion With post-concussive syndrome; FMLA Lower extremity edema Post laminectomy syndrome (11/28/16) Lumbar radicular syndrome (11/28/16) Low back pain (11/28/16) Insomnia (11/28/16) Folliculitis (11/28/16) Degeneration of lumbar intervertebral disc with acute herniation (11/28/16) s/p 2 back surgeries Surgical History History of hip surgery (~08/2022) [facility]--1. Arthroscopic labral debridement, CPT# 83166 2. Arthroscopic femoroplasty, CPT# 91818 3. Endoscopic iliotibial band release, CPT# 86221 4. Endoscopic trochanteric bursectomy, CPT# 06027 laminectomy (12/11/12) Dr. Santoyo 2010-[place], [place] Laminotomy 12/16/24 [facility] Discectomy (03/29/11) (R) L5-S1 microsurg decom discectomy - 2nd Surgery (R) L5-S1 discectomy and decompression 02/11 Family History Mother Essential hypertension Arthritis Depression Hyperlipidemia Psoriasis Anxiety Heart disease Hypertension Brother Alcohol abuse Anxiety Depression Mental disorder Grandfather Essential hypertension Heart disease Hyperlipidemia Neoplasm Prostate cancer Grandmother Essential hypertension Depression Heart disease Hyperlipidemia Emphysema lung Anxiety Cancer Hypertension Father Alcohol abuse Other Breast cancer Social History Smoking/Tobacco Use Status: Former Tobacco Use Smoking risk assessment performed?: Yes Alcohol Intake: never Drug use: Never Substance use type: does not use Adopted: No Caregiver/Support person: No Foster care: No Household members: spouse and children Housing: house Number of Children: 2 Communication Needs: None Education Level: college Do you need help understanding health information?: Never 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 Pets and animals: Yes (4) Pets and animals: cat(s) Sexually active: Yes Do you think of yourself as: straight/heterosexual Current gender identity: female What is your relationship status?: How often do you talk on the phone with friends or family?: once per week How often do you get together with friends or relatives?: once per week Do you belong to any clubs or organized social groups?: no Panel score (0-1 are the most socially isolated patients): 1 What type of physical activity do you participate in: bicycling, regular exercise, swimming and resistance training Duration: 60-90 minutes/day Frequency: 5-6 times per week Special miki needs: No Seatbelt use: always Helmet use: Yes Helmet use: always Drive intox or ride w/intox regional flatbed truck driver: No Working smoke detector in home: Yes Fire extinguisher in home: Yes Carbon monox detector in home: Yes Firearms in home: No Do you feel safe at home: Yes Do you feel safe in your relationship?: Yes Victim of physical abuse: No Victim of emotional abuse: No Victim of sexual abuse: No Female Reproductive History Menstrual control method: progestin IUCD (Mirena lot# [id number] exp 01/2021) History History 2 Para Hx # Term Pregnancies Multiple births Hx # Pregnancies Ectopic pregnancies AB induced Hx Number of Living Children AB spontaneous
[2025-01-21 12:01] VITALS: BP 100/63; PULSE 84; O2SAT 97
--- NOTE | 2025-01-21 15:03 | W.PM.PROGNOT ---
Date of Service Date of service: 01/21/25 Time of Service: 15:03 Assessment and Plan Assessment and plan (1) Meningitis: Status: Acute Assessment and plan: -suspected given new presentation of headaches and surgical site infection with MSSA being treated with CTX, suspecious for meningitis -however, unable to perform lumbar puncture given surgical site wound infection -apprecaite [facility] ID recs; continue oxacillin 2g Q4hr, if headaches improve/resolve can DC with PICC line and oxacillin -head CT without acute findings -patient feeling much better, plan to DC with home oxacillin 2q Q4hr for 6 weeks once [employer] approves abx order change (2) Headache: Status: Acute Assessment and plan: -as noted above (3) Infection following a procedure, deep incisional surgical site, initial encounter: Status: Acute Assessment and plan: -as noted above (4) Adjustment disorder with mixed anxiety and depressed mood: Status: Acute Assessment and plan: -continue home bupropion, fluoxetine (5) Raynaud phenomenon: Status: Acute Assessment and plan: -continue PRN CCB (6) Chronic pain: Status: Chronic Assessment and plan: continue home hydromorphone 4mg BID PRN Subjective Subjective Interval history since last seen: Patient states that she is feeling much better and is looking forward to going home once her [employer] company approves her antibiotic change. Exam Narrative Exam Narrative: well appearing female laying in bed in no acute distress, AOx4, normal chin to chest, no pain with palpation or movement of neck, heart RRR, lungs CTAB, abdomen soft, non-tender, non-distended Objective Last Vital Signs Temp 97.9 F 01/21/25 08:16 Pulse 84 01/21/25 12:01 Resp 18 01/21/25 08:16 BP 100/63 01/21/25 12:01 Pulse Ox 97 01/21/25 12:01 Laboratory Results - last 24 hr 01/21/25 06:05 WBC 3.43 L RBC 3.45 L Hgb 10.3 L D Hct 31.9 L MCV 93 D MCH 29.9 MCHC 32.3 RDW 13.2 Plt Count 179 MPV 8.7 Sodium 142 Potassium 3.7 Chloride 106 Carbon Dioxide 28.8 Anion Gap 7.2 BUN 11 Creatinine 0.8 Est GFR (CKD-EPI 2020) 94.28 Glucose 82 Calcium 8.2 L Magnesium 2.0 Time Spent with Patient Time Spent with Patient: >50 minutes Time was spent: preparing to see the patient(eg.review tests), obtaining and/or reviewing separately otained hiistory, ordering medications,tests, procedures, referring, communicating with other health home visit field care manager, indepentently interpreting results, counseling the patient and care coordination
[2025-01-21 16:11] VITALS: BP 90/52; PULSE 78; RESP 18; TEMP 36.5; O2SAT 97
[2025-01-21 19:30] VITALS: BP 96/62; PULSE 76; RESP 18; TEMP 36.6; O2SAT 99
[2025-01-21] MEDS: HYDROmorphone 4 MG TAB PO (20:02)
[2025-01-22 03:14] VITALS: BP 90/54; PULSE 68; RESP 18; TEMP 36.8; O2SAT 98
[2025-01-22 08:07] VITALS: BP 96/64; PULSE 82; RESP 16; TEMP 36.9; O2SAT 98
[2025-01-22] MEDS: Folic Acid 1 MG TAB PO (08:36)
[2025-01-22] MEDS: FLUoxetine 20 MG CAP 60 MG PO (08:36)
[2025-01-22] MEDS: Normal Saline Flush 10 ML SYR IVP (08:38)
[2025-01-22] MEDS: Enoxaparin 40 MG/0.4 ML SYR SC (08:39)
[2025-01-22 11:30] VITALS: BP 103/63; PULSE 87; RESP 16; TEMP 35.8; O2SAT 98
[2025-01-22] MEDS: SUMAtriptan 50 MG TAB 100 MG PO (15:45)
[2025-01-22 15:57] VITALS: BP 98/52; PULSE 78; RESP 16; TEMP 36.8; O2SAT 98
--- NOTE | 2025-01-22 17:21 | PGE_ITS ---
Date of Service Date of service: 01/22/25 Time of Service: 17:21 Assessment and Plan Assessment and plan (1) Meningitis: Status: Acute Assessment and plan: -suspected given new presentation of headaches and surgical site infection with MSSA being treated with CTX, suspecious for meningitis -however, unable to perform lumbar puncture given surgical site wound infection -[facility]rec[facility]ite [facility] [place]s; continue oxacillin 2g Q4hr, if headaches improve/resolve can DC with PICC line and oxacillin -head CT without acute findings -patient feeling much better, plan to DC with home oxacillin 2q Q4hr for 6 weeks once [employer] approves abx order change (2) Headache: Status: Acute Assessment and plan: -as noted above (3) Infection following a procedure, deep incisional surgical site, initial encounter: Status: Acute Assessment and plan: -as noted above (4) Adjustment disorder with mixed anxiety and depressed mood: Status: Acute Assessment and plan: -continue home bupropion, fluoxetine (5) Raynaud phenomenon: Status: Acute Assessment and plan: -continue PRN CCB (6) Chronic pain: Status: Chronic Assessment and plan: continue home hydromorphone 4mg BID PRN Subjective Subjective Interval history since last seen: Patient states that she is doing well and is happy that she will be discharged tomorrow morning with home health services setting up her noon dose of her new antibiotic regimen Exam Narrative Exam Narrative: well appearing female laying in bed in no acute distress, AOx4, normal chin to chest, no pain with palpation or movement of neck, heart RRR, lungs CTAB, abdomen soft, non-tender, non-distended Objective Last Vital Signs Temp 98.2 F 01/22/25 15:57 Pulse 78 01/22/25 15:57 Resp 16 01/22/25 15:57 BP 98/52 L 01/22/25 15:57 Pulse Ox 98 01/22/25 15:57 Time Spent with Patient Time Spent with Patient: >50 minutes Time was spent: preparing to see the patient(eg.review tests), obtaining and/or reviewing separately otained hiistory, ordering medications,tests, procedures, referring, communicating with other health home care giver, indepentently interpreting results, counseling the patient and care coordination
[2025-01-22 19:38] VITALS: BP 100/52; PULSE 69; RESP 16; TEMP 36.7; O2SAT 99
[2025-01-22 22:55] VITALS: BP 97/59; PULSE 66; RESP 16; TEMP 36.2; O2SAT 98
[2025-01-23 04:21] VITALS: BP 91/53; PULSE 63; RESP 16; TEMP 36; O2SAT 99
[2025-01-23 07:56] VITALS: BP 98/65; PULSE 78; RESP 16; TEMP 36.4; O2SAT 99
[2025-01-23] MEDS: Folic Acid 1 MG TAB PO (08:14)
[2025-01-23] MEDS: FLUoxetine 20 MG CAP 60 MG PO (08:14)
[2025-01-23] MEDS: Enoxaparin 40 MG/0.4 ML SYR SC (08:15)
[2025-01-23] MEDS: Normal Saline Flush 10 ML SYR IVP (08:16)
--- NOTE | 2025-01-23 08:51 | W.PM.DS.N ---
Date of service: 01/23/25 Time of Service: 08:51 DS: Diagnosis Discharge Diagnosis (1) Meningitis: Status: Acute (2) Headache: Status: Acute (3) Infection following a procedure, deep incisional surgical site, initial encounter: Status: Acute (4) Adjustment disorder with mixed anxiety and depressed mood: Status: Acute (5) Raynaud phenomenon: Status: Acute (6) Chronic pain: Status: Chronic Discharge Plan Disposition Patient Disposition: Home W/Home Health Services Condition: Good Discharge Details Reason For Visit: suspected MSSA Meningitis Admit Date/Time: 01/20/25 11:41 Admit Provider: Nima Samson Attending Provider: Nima Samson Primary Care Provider: Altagracia Good Hospital Course Hospital Course: Patient initially presented with worsening headache that was different than her previous migraines. In the setting of lumbar surgery with surgical site infection, [facility] infectious disease thought this may be secondary to meningitis. She had cultures that were growing MSSA, and recommended transitioning to IV oxacillin. Patient's symptoms did not recur, and it was determined that she was stable for discharge home with a transition from ceftriaxone to oxacillin for total of 6 weeks of therapy. Home Meds and New Rx's Prescriptions: Continued cyclobenzaprine 10 mg tablet 10 mg PO HS PRN (Reason: muscle spasm) Qty: 10 0RF propranolol 10 mg tablet 10 mg PO BID Qty: 180 3RF prochlorperazine maleate 10 mg tablet 10 mg PO Q8H PRN (Reason: nausea and vomiting or headache) Qty: 30 4RF sumatriptan succinate 100 mg tablet See Rx Instructions PO .COMPLEX Qty: 9 5RF Rx Instructions: take 1 tab at onset of headache; if no relief, may repeat 1 tab after at least 2 hrs; max = 2 tabs/24 hrs PO Zepbound 5 mg/0.5 mL pen injector 5 mg subcut QWEEK Qty: 6 1RF gabapentin 100 mg capsule 100 mg PO QHS amlodipine 5 mg tablet 5 mg PO DAILY PRN (Reason: Raynauds) Qty: 90 3RF Rx Instructions: Podiatry 12/2020 recommended pantoprazole [Protonix] 40 mg tablet,delayed release (DR/EC) 40 mg PO DAILY PRN (Reason: heartburn) Qty: 90 0RF fluoxetine 20 mg capsule 20 mg PO QAM MDD 60 mg Qty: 90 1RF fluoxetine 40 mg capsule 40 mg PO QAM MDD 60 mg Qty: 90 1RF bupropion HCl 200 mg tablet sustained-release 12 hr 200 mg PO BID Qty: 180 1RF folic acid 1 mg tablet 1 mg PO DAILY Qty: 90 3RF ceftriaxone 1 gram recon soln 1 g IV DAILY Rx Instructions: x 42 days for Osteomyelitis. EOT 02/28/2025. hydromorphone 4 mg tablet 4 mg PO BID PRN Rx Instructions: #5 tablets given 01/15/2025. acetaminophen [Acetaminophen Extra Strength] 500 mg tablet 500 mg PO QID PRN Discharge Instructions Activity:: Activity as Tolerated Equipment/Supplies:: No Equipment Needed Diet:: As Tolerated Discharge Orders Discharge Orders: Discharge Order (Routine); Ordered 01/23/25 Ordered By: Nima Samson DS: Summary Time Spent with Patient providing and/or coordinating discharge services: Greater than 30 minutes Status at Discharge Functional status at discharge: independent ambulation Overall status at discharge: patient is back to baseline Mental Status: mental status grossly normal Speech and Movement: speech and movement normal Mood: congruent mood Affect: normal affect Quality:SDOH Health Related Social Needs: No Data to Display Exam Narrative Exam Narrative: well appearing female laying in bed in no acute distress, AOx4, normal chin to chest, no pain with palpation or movement of neck, heart RRR, lungs CTAB, abdomen soft, non-tender, non-distended Psych Mental Status: mental status grossly normal Speech and Movement: speech and movement normal Mood: congruent mood Affect: normal affect DS: Data Vitals/I&O Vitals and I&O: Vital Signs Temperature 97.5 F L 01/23/25 07:56 Temperature Source Temporal Artery Scan 01/23/25 07:56 Pulse 78 01/23/25 07:56 Respiratory Rate 16 01/23/25 07:56 Blood Pressure 98/65 L 01/23/25 07:56 Blood Pressure Mean 72 01/20/25 12:45 Blood Pressure Position Sitting 01/20/25 08:53 Pulse Oximetry 99 01/23/25 07:56 Oxygen Delivery Method Room Air 01/23/25 07:56 Oxygen Flow Rate 0 01/23/25 07:56 Pain Level 0 01/22/25 15:57 Comment RN Notified 01/23/25 04:21 Intake & Output 01/22/25 01/23/25 01/23/25 17:59 05:59 17:59 Intake Total 410 / 410 153.333 / 563.333 Balance 410 / 410 153.333 / 563.333 Intake: IV 160 / 160 153.333 / 313.333 Oral 250 / 250 Other: Urine Color Light Ceci Yellow Yellow Urine Appearance Clear Clear Comment voids independently per pt voided x1 Stool Size Small Stool Characteristics Soft Formed Brown Data Completed and Pending Labs on day of discharge: Preliminary micro results at discharge 01/20/25 09:50 Blood Culture - Preliminary Blood NO GROWTH 48 HOURS 01/20/25 09:10 Blood Culture - Preliminary Blood NO GROWTH 48 HOURS PFSH All Active Problems (Updated 01/23/25 @ 08:51 by Nima Samson MD) Headache (Acute) Meningitis (Acute) Infection following a procedure, deep incisional surgical site, initial encounter (Acute) Adjustment disorder with mixed anxiety and depressed mood (Acute) Herniated lumbar intervertebral disc (Acute ~09/06/24) APD Neurosurgery 09/06/24 Folate deficiency (Acute ~08/2024) Angiomyolipoma of left kidney (Acute ~08/2023) Raynaud phenomenon (Acute) 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 Adjustment disorder (Chronic) Chronic pain (Chronic) 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 factors (Acute) GERD (gastroesophageal reflux disease) (Chronic 11/28/16) Obesity (BMI 30.0-34.9) (Chronic ~05/2024) Lumbar spondylosis (Acute) [facility] 03/16/24 Lumbar disc herniation with radiculopathy (Acute) Lumbar pain with radiation down right leg (Acute) Acute lumbar myofascial strain (Acute) Memory changes (Acute) Vertigo (Acute 11/28/16) Migraine headache without aura (Acute) Migraine headache with aura (Acute) Chronic daily headache (Acute) Abnormal EKG (Acute ~08/2023) Depression (Chronic) Breast cancer screening by mammogram (Acute) Postprandial abdominal pain in right upper quadrant (Acute) Ilioinguinal neuralgia of right side (Acute) Sacroiliac joint dysfunction of right side (Acute) Ischial bursitis of right side (Acute) LLQ abdominal pain (Acute) Injury of nerve of right lower extremity (Acute) Trochanteric bursitis of right hip (Acute) Labral tear of right hip joint (Acute ~03/2021) Raynauds disease (Acute) Podiatry 12/2020; RX Amlodipine Elevated serum creatinine (Acute) Vitamin D deficiency (Acute) Anxiety (Chronic) IUD surveillance (Acute 01/03/16) Mirena IUD placed 07/2012, replaced 09/04/18 Medical History Gluteal tendinitis of right buttock Pelvic congestion syndrome Kidney stone Cyst of right breast Incomplete bladder emptying Numbness in right leg s/p neurosurgery x2 (posterior R knee and last 2 toes, foot pad) Pruritic rash Derm ([facility]); Biopsy ([place]) Post concussive syndrome Concussion With post-concussive syndrome; FMLA Lower extremity edema Post laminectomy syndrome (11/28/16) Lumbar radicular syndrome (11/28/16) Low back pain (11/28/16) Insomnia (11/28/16) Folliculitis (11/28/16) Degeneration of lumbar intervertebral disc with acute herniation (11/28/16) s/p 2 back surgeries Surgical History History of hip surgery (~08/2022) [facility]--1. Arthroscopic labral debridement, CPT# 24957 2. Arthroscopic femoroplasty, CPT# 01277 3. Endoscopic iliotibial band release, CPT# 26421 4. Endoscopic trochanteric bursectomy, CPT# 17789 laminectomy (12/11/12) Dr. Santoyo 2010-[place], [place] Laminotomy 12/16/24 [facility] [place] Discectomy (03/29/11) (R) L5-S1 microsurg decom discectomy - 2nd Surgery (R) L5-S1 discectomy and decompression 02/11 Family History Mother Essential hypertension Arthritis Depression Hyperlipidemia Psoriasis Anxiety Heart disease Hypertension Brother Alcohol abuse Anxiety Depression Mental disorder Grandfather Essential hypertension Heart disease Hyperlipidemia Neoplasm Prostate cancer Grandmother Essential hypertension Depression Heart disease Hyperlipidemia Emphysema lung Anxiety Cancer Hypertension Father Alcohol abuse Other Breast cancer Social History Smoking/Tobacco Use Status: Former Tobacco Use Smoking risk assessment performed?: Yes Alcohol Intake: never Drug use: Never Substance use type: does not use Adopted: No Caregiver/Support person: No Foster care: No Household members: spouse and children Housing: house Number of Children: 2 Communication Needs: None Education Level: college Do you need help understanding health information?: Never 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 Pets and animals: Yes (4) Pets and animals: cat(s) Sexually active: Yes Do you think of yourself as: straight/heterosexual Current gender identity: female What is your relationship status?: How often do you talk on the phone with friends or family?: once per week How often do you get together with friends or relatives?: once per week Do you belong to any clubs or organized social groups?: no Panel score (0-1 are the most socially isolated patients): 1 What type of physical activity do you participate in: bicycling, regular exercise, swimming and resistance training Duration: 60-90 minutes/day Frequency: 5-6 times per week Special miki needs: No Seatbelt use: always Helmet use: Yes Helmet use: always Drive 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 Working smoke detector in home: Yes Fire extinguisher in home: Yes Carbon monox detector in home: Yes Firearms in home: No Do you feel safe at home: Yes Do you feel safe in your relationship?: Yes Victim of physical abuse: No Victim of emotional abuse: No Victim of sexual abuse: No Female Reproductive History Menstrual control method: progestin IUCD (Mirena lot# [id number] exp 01/2021) History History 2 Para Hx # Term Pregnancies Multiple births Hx # Pregnancies Ectopic pregnancies AB induced Hx Number of Living Children AB spontaneous Time Spent with Patient Time Spent with Patient: <45 minutes Time was spent: preparing to see the patient(eg.review tests), obtaining and/or reviewing separately otained hiistory, ordering medications,tests, procedures, referring, communicating with other health healthcare marketer, indepentently interpreting results, counseling the patient and care coordination
--- NOTE | 2025-01-23 11:47 | CMDISCH_ITS ---
Date of service: 01/23/25 Time of Service: 11:48 LACE Index Scoring Tool Questions: Length of Stay (in days): 3 Was the patient admitted via the E.D.?: Yes E.D. Visits: 2 Answers: Total Score: 8 Risk of Readmission: Low Risk Care Management Discharge Plan Reason for Hospitalization: MSSA Meningitis Discharge Plan: Janey will be discharged home with a resumption of home health nursing for home IV antibiotic infusions. The Infusion company providing the antibiotics is [facility]. She will follow up with her surgeon and PCP and transport with family. Patient/Family Education Needs: Review of discharge instructions, limitations, follow up plan and discuss Ask Me Three. Services Needed at Discharge: Home Health Care Services (RN to coordinate Infusions) and Infusion Therapy (NE for 6 weeks of Oxacillin) SDOH Health Related Social Needs: No Data to Display
== END 2025-01-23 10:17 | disposition home health service (06) | DRG 98 ==
LOC: ER 11:12 → MS 13:07
PROVIDERS: Admitting Provider Family Medicine; Emergency Provider Student in an Organized Health Care Education/Training Program; PCP Nurse Practitioner Adult Health; Responsible Provider Family Medicine; Visit Provider Family Medicine
DX: G03.9 Meningitis, unspecified (principal); T81.42XA Infection following a procedure, deep incisional surgical site, initial encounter; F43.23 Adjustment disorder with mixed anxiety and depressed mood; I73.00 Raynaud's syndrome without gangrene; G89.29 Other chronic pain; G43.909 Migraine, unspecified, not intractable, without status migrainosus; D64.9 Anemia, unspecified; E53.8 Deficiency of other specified B group vitamins; Q76.49 Other congenital malformations of spine, not associated with scoliosis; K21.9 Gastro-esophageal reflux disease without esophagitis; F32.A Depression, unspecified; E55.9 Vitamin D deficiency, unspecified; G47.00 Insomnia, unspecified; B95.61 Methicillin susceptible Staphylococcus aureus infection as the cause of diseases classified elsewhere
CPT/HCPCS: 00123; 36415; 70496; 70498; 80048; 80053; 85027; 87040; 87637; 96361; 96365; 96375; 99285; J1650; 83735; 84703; 85025; 99223; 99233; 99239; J0780; J1171; J1200; J1885; J2700

== ENCOUNTER 2025-01-24 16:49 | Outpatient (REF) | payer OTHER, SELFPAY ==
[2025-01-24 16:30] LABS: Absolute Basophil Count 0.03 10^3/uL (0.0-0.2); Absolute Eosinophil Count 0.08 10^3/uL (0.0-0.7); Absolute Lymphocyte Count 1.44 10^3/uL (1.2-3.4); Absolute Monocyte Count 0.41 10^3/uL (0.1-0.8); Absolute Neutrophil Count 2.75 10^3/uL (1.2-6.7); Basophils % 0.6 %; Eosinophils % 1.7 %; HCT 34.8 % (36.0-46.0); HGB 11.6 g/dL (11.2-15.7); Lymphocytes % 30.6 %; MCH 30.3 pg (27.0-33.0); MCHC 33.3 % (32.0-36.0); MCV 91 fL (80-95); MPV 9.1 fL (8.0-11.0); Monocytes % 8.7 %; Neutrophils % 58.4 %; Platelet Count 293 10^3/uL (130-400); RBC 3.83 10^6/uL (3.93-5.22); RDW 13.5 % (11.7-14.6); RDW-SD 44.7 fL; WBC 4.71 10^3/uL (4.4-10.8)
[2025-01-24 17:23] LABS: ALT 20 U/L (14-59); AST 11 U/L (15-37); Albumin 3.3 g/dL (3.4-5.0); Alkaline Phosphatase 46 U/L (46-116); Anion Gap 7.5 mmol/L (3-11); BUN 8 mg/dL (7-18); Bilirubin, Direct 0.1 mg/dL (0.0-0.2); Bilirubin, Total 0.26 mg/dL (0.2-1.0); CO2 27.5 mmol/L (21.0-32.0); CREATININE 0.7 mg/dL (0.55-1.02); Calcium 8.7 mg/dL (8.5-10.1); Chloride 107 mmol/L (98-107); Estimated GFR 110.67 (mL/min/1.73m2); Glucose 80 mg/dL (74-106); Sodium 142 mmol/L (136-145); Total Protein 6.1 g/dL (6.4-8.2)
== END 2025-01-24 16:50 | disposition home or self-care (01) ==
LOC: LBN 16:49
PROVIDERS: PCP Nurse Practitioner Adult Health; Visit Provider Nurse Practitioner Adult Health
DX: T81.49XA Infection following a procedure, other surgical site, initial encounter (principal); G03.9 Meningitis, unspecified; Z79.2 Long term (current) use of antibiotics
CPT/HCPCS: 80048; 80076; 85025

== ENCOUNTER 2025-01-31 14:52 | Outpatient (REF) | payer OTHER, SELFPAY ==
[2025-01-31 14:06] LABS: Abs Immature Grans 0.01 10^3/uL (0.0-0.06); Absolute Basophil Count 0.03 10^3/uL (0.0-0.2); Absolute Eosinophil Count 0.09 10^3/uL (0.0-0.7); Absolute Lymphocyte Count 1.26 10^3/uL (1.2-3.4); Absolute Monocyte Count 0.41 10^3/uL (0.1-0.8); Absolute Neutrophil Count 3.15 10^3/uL (1.2-6.7); Basophils % 0.6 %; Eosinophils % 1.8 %; HCT 34.2 % (36.0-46.0); Immature Grans % 0.2 %; Lymphocytes % 25.5 %; MCH 30.2 pg (27.0-33.0); MCHC 32.2 % (32.0-36.0); MCV 94 fL (80-95); MPV 9.5 fL (8.0-11.0); Monocytes % 8.3 %; Neutrophils % 63.6 %; Platelet Count 241 10^3/uL (130-400); RBC 3.64 10^6/uL (3.93-5.22); RDW 14.4 % (11.7-14.6); RDW-SD 49.7 fL; WBC 4.95 10^3/uL (4.4-10.8)
[2025-01-31 14:25] LABS: ALT 19 U/L (14-59); AST 11 U/L (15-37); Albumin 3.1 g/dL (3.4-5.0); Alkaline Phosphatase 39 U/L (46-116); Anion Gap 6.9 mmol/L (3-11); BUN 8 mg/dL (7-18); Bilirubin, Total 0.43 mg/dL (0.2-1.0); CO2 27.1 mmol/L (21.0-32.0); CREATININE 0.7 mg/dL (0.55-1.02); Calcium 8.3 mg/dL (8.5-10.1); Chloride 109 mmol/L (98-107); Estimated GFR 110.67 (mL/min/1.73m2); Glucose 93 mg/dL (74-106); Sodium 143 mmol/L (136-145); Total Protein 5.8 g/dL (6.4-8.2)
[2025-01-31 14:26] LABS: C-Reactive Protein < 0.50 mg/dL (<or=0.5)
== END 2025-01-31 14:53 | disposition home or self-care (01) ==
LOC: LBN 14:52
PROVIDERS: PCP Nurse Practitioner Adult Health; Visit Provider Internal Medicine
DX: G06.2 Extradural and subdural abscess, unspecified (principal)
CPT/HCPCS: 80053; 85025; 86140

== ENCOUNTER 2025-02-07 16:37 | Outpatient (REF) | payer OTHER, SELFPAY ==
[2025-02-07 15:35] LABS: Absolute Basophil Count 0.03 10^3/uL (0.0-0.2); Absolute Eosinophil Count 0.09 10^3/uL (0.0-0.7); Absolute Lymphocyte Count 1.15 10^3/uL (1.2-3.4); Absolute Monocyte Count 0.44 10^3/uL (0.1-0.8); Absolute Neutrophil Count 3.07 10^3/uL (1.2-6.7); Basophils % 0.6 %; Eosinophils % 1.9 %; HGB 11.3 g/dL (11.2-15.7); Lymphocytes % 24.1 %; MCH 30.4 pg (27.0-33.0); MCHC 33.2 % (32.0-36.0); MCV 91 fL (80-95); MPV 9.5 fL (8.0-11.0); Monocytes % 9.2 %; Neutrophils % 64.2 %; Platelet Count 251 10^3/uL (130-400); RBC 3.72 10^6/uL (3.93-5.22); RDW 14.5 % (11.7-14.6); RDW-SD 48.4 fL; WBC 4.78 10^3/uL (4.4-10.8)
[2025-02-07 15:46] LABS: ALT 16 U/L (14-59); AST 11 U/L (15-37); Alkaline Phosphatase 43 U/L (46-116); Anion Gap 7.8 mmol/L (3-11); BUN 8 mg/dL (7-18); Bilirubin, Total 0.5 mg/dL (0.2-1.0); CO2 25.2 mmol/L (21.0-32.0); CREATININE 0.7 mg/dL (0.55-1.02); Calcium 8.2 mg/dL (8.5-10.1); Chloride 109 mmol/L (98-107); Estimated GFR 110.67 (mL/min/1.73m2); Glucose 86 mg/dL (74-106); Potassium 3.9 mmol/L (3.5-5.1); Sodium 142 mmol/L (136-145); Total Protein 5.8 g/dL (6.4-8.2)
[2025-02-07 15:49] LABS: C-Reactive Protein < 0.50 mg/dL (<or=0.5)
== END 2025-02-07 16:38 | disposition home or self-care (01) ==
LOC: LBN 16:37
PROVIDERS: PCP Nurse Practitioner Adult Health; Visit Provider Internal Medicine
DX: G06.2 Extradural and subdural abscess, unspecified (principal)
CPT/HCPCS: 80053; 85025; 86140

== ENCOUNTER 2025-02-14 13:21 | Outpatient (REF) | payer OTHER, SELFPAY ==
[2025-02-14 12:45] LABS: Absolute Basophil Count 0.03 10^3/uL (0.0-0.2); Absolute Lymphocyte Count 1.31 10^3/uL (1.2-3.4); Absolute Monocyte Count 0.34 10^3/uL (0.1-0.8); Absolute Neutrophil Count 2.14 10^3/uL (1.2-6.7); Basophils % 0.8 %; Eosinophils % 2.6 %; HCT 36.3 % (36.0-46.0); HGB 12.2 g/dL (11.2-15.7); Lymphocytes % 33.4 %; MCH 30.8 pg (27.0-33.0); MCHC 33.6 % (32.0-36.0); MCV 92 fL (80-95); MPV 9.3 fL (8.0-11.0); Monocytes % 8.7 %; Neutrophils % 54.5 %; Platelet Count 202 10^3/uL (130-400); RBC 3.96 10^6/uL (3.93-5.22); RDW-SD 47.8 fL; WBC 3.92 10^3/uL (4.4-10.8)
[2025-02-14 13:09] LABS: ALT 20 U/L (14-59); AST 13 U/L (15-37); Albumin 3.2 g/dL (3.4-5.0); Alkaline Phosphatase 41 U/L (46-116); Anion Gap 7.6 mmol/L (3-11); BUN 6 mg/dL (7-18); Bilirubin, Total 0.6 mg/dL (0.2-1.0); C-Reactive Protein < 0.50 mg/dL (<or=0.5); CO2 27.4 mmol/L (21.0-32.0); CREATININE 0.8 mg/dL (0.55-1.02); Calcium 8.7 mg/dL (8.5-10.1); Chloride 107 mmol/L (98-107); Estimated GFR 94.28 (mL/min/1.73m2); Glucose 82 mg/dL (74-106); Potassium 3.9 mmol/L (3.5-5.1); Sodium 142 mmol/L (136-145); Total Protein 6.2 g/dL (6.4-8.2)
== END 2025-02-14 13:22 | disposition home or self-care (01) ==
LOC: LBN 13:21
PROVIDERS: PCP Nurse Practitioner Adult Health; Visit Provider Internal Medicine
DX: G06.2 Extradural and subdural abscess, unspecified (principal)
CPT/HCPCS: 80053; 85025; 86140

== ENCOUNTER 2025-02-21 15:22 | Outpatient (REF) | payer OTHER, SELFPAY ==
[2025-02-21 16:03] LABS: Abs Immature Grans 0.03 10^3/uL (0.0-0.06); Absolute Basophil Count 0.03 10^3/uL (0.0-0.2); Absolute Lymphocyte Count 0.92 10^3/uL (1.2-3.4); Absolute Monocyte Count 0.77 10^3/uL (0.1-0.8); Absolute Neutrophil Count 7.63 10^3/uL (1.2-6.7); Basophils % 0.3 %; HCT 37.7 % (36.0-46.0); HGB 12.7 g/dL (11.2-15.7); Immature Grans % 0.3 %; Lymphocytes % 9.8 %; MCH 30.8 pg (27.0-33.0); MCHC 33.7 % (32.0-36.0); MCV 92 fL (80-95); MPV 9.6 fL (8.0-11.0); Monocytes % 8.2 %; Neutrophils % 81.4 %; Platelet Count 210 10^3/uL (130-400); RBC 4.12 10^6/uL (3.93-5.22); RDW 13.8 % (11.7-14.6); RDW-SD 46.9 fL; WBC 9.38 10^3/uL (4.4-10.8)
[2025-02-21 16:30] LABS: ALT 20 U/L (14-59); AST 16 U/L (15-37); Albumin 3.1 g/dL (3.4-5.0); Alkaline Phosphatase 40 U/L (46-116); Anion Gap 14.6 mmol/L (3-11); BUN 16 mg/dL (7-18); Bilirubin, Total 0.9 mg/dL (0.2-1.0); CO2 23.4 mmol/L (21.0-32.0); CREATININE 0.9 mg/dL (0.55-1.02); Calcium 8.7 mg/dL (8.5-10.1); Chloride 105 mmol/L (98-107); Estimated GFR 81.86 (mL/min/1.73m2); Glucose 72 mg/dL (74-106); Potassium 3.6 mmol/L (3.5-5.1); Sodium 143 mmol/L (136-145); Total Protein 6.2 g/dL (6.4-8.2)
== END 2025-02-21 15:23 | disposition home or self-care (01) ==
LOC: LBN 15:22
PROVIDERS: PCP Nurse Practitioner Adult Health; Visit Provider Internal Medicine
DX: G06.2 Extradural and subdural abscess, unspecified (principal)
CPT/HCPCS: 80053; 85025; 86140

== ENCOUNTER 2025-02-28 16:30 | Outpatient (REF) | payer OTHER, SELFPAY ==
[2025-02-28 18:16] LABS: Abs Immature Grans 0.01 10^3/uL (0.0-0.06); Absolute Basophil Count 0.04 10^3/uL (0.0-0.2); Absolute Eosinophil Count 0.08 10^3/uL (0.0-0.7); Absolute Lymphocyte Count 1.34 10^3/uL (1.2-3.4); Absolute Monocyte Count 0.44 10^3/uL (0.1-0.8); Absolute Neutrophil Count 3.11 10^3/uL (1.2-6.7); Basophils % 0.8 %; Eosinophils % 1.6 %; HCT 34.4 % (36.0-46.0); HGB 11.4 g/dL (11.2-15.7); Immature Grans % 0.2 %; Lymphocytes % 26.7 %; MCH 30.7 pg (27.0-33.0); MCHC 33.1 % (32.0-36.0); MCV 93 fL (80-95); Monocytes % 8.8 %; Neutrophils % 61.9 %; Platelet Count 247 10^3/uL (130-400); RBC 3.71 10^6/uL (3.93-5.22); RDW 13.9 % (11.7-14.6); RDW-SD 47.8 fL; WBC 5.02 10^3/uL (4.4-10.8)
[2025-02-28 18:41] LABS: ALT 17 U/L (14-59); AST 13 U/L (15-37); Albumin 2.7 g/dL (3.4-5.0); Alkaline Phosphatase 30 U/L (46-116); Anion Gap 9.4 mmol/L (3-11); BUN 10 mg/dL (7-18); Bilirubin, Total 0.7 mg/dL (0.2-1.0); CO2 28.6 mmol/L (21.0-32.0); CREATININE 0.7 mg/dL (0.55-1.02); Calcium 8.2 mg/dL (8.5-10.1); Chloride 107 mmol/L (98-107); Estimated GFR 110.67 (mL/min/1.73m2); Glucose 79 mg/dL (74-106); Potassium 3.4 mmol/L (3.5-5.1); Sodium 145 mmol/L (136-145); Total Protein 5.7 g/dL (6.4-8.2)
[2025-02-28 18:47] LABS: C-Reactive Protein < 0.50 mg/dL (<or=0.5)
== END 2025-02-28 16:31 | disposition home or self-care (01) ==
LOC: LBN 16:30
PROVIDERS: PCP Nurse Practitioner Adult Health; Visit Provider Internal Medicine Infectious Disease
DX: F41.9 Anxiety disorder, unspecified (principal); E66.9 Obesity, unspecified; Z00.00 Encounter for general adult medical examination without abnormal findings
CPT/HCPCS: 80053; 85025; 86140

== ENCOUNTER 2025-03-25 00:25 | Outpatient (CLI) | payer OTHER, SELFPAY ==
[2025-03-25] MEDS: Gadoterate meglumine 20 ML VIAL IVP (08:01)
--- NOTE | 2025-03-25 08:50 | DI.MRI_ITS ---
Exam(s) MR LUMBAR SPINE WO/W EXAM: MR LUMBAR SPINE WO/W CLINICAL HISTORY: RT LEG PAIN,M79.604,SUPERFICIAL POSTOPERATIVE WOUND INFECTION,t81.49XA,INC. TECHNIQUE: Multiplanar multisequence MRI of the Lumbar spine was performed. COMPARISON: MR MRI LUMBAR SPINE WWO CONTRAST from 01/12/2025 FINDINGS: Conus medullaris is at normal level. There is no evidence of conus mass nor subjacent clumping of in trathecal nerve roots to suggest arachnoiditis. The distal thecal sac appears unremarkable.There is no evidence of Tarlov intrasacral cysts nor other significant findings within the sacral canal Bones:There are no fractures nor ominous osseous lesions in the lumbar vertebral bodies and visualize d sacrum. Benign bone island is noted in the posterior right side of upper L4 vertebral body a junct ion of the body and pedicle. With respect to the individual levels... There is no evidence of discitis nor osteomyelitis. T12-L1: Unremarkable L1-2: Normal disc height and signal. No disc herniation nor central canal stenosis.No foraminal steno sis L2-3: Normal disc height. No disc herniation nor central canal stenosis.No foraminal stenosis.No face t arthropathy. L3-4: Normal disc height. No disc herniation or central canal stenosis.No foraminal stenosis.No face t arthropathy. L4-5: Again noted is evidence of right laminotomy partially resected ligamentum flavum. There is radha tral subligamentous disc bulging at this level which is slightly indents the anterior thecal sac and borderline central canal stenosis. There is mild narrowing of the right lateral recess at this level . No significant foraminal stenosis on either side at this level. There is again noted enhancement in soft tissues along the right-side posterior aspect of the L4-5 disc space. There does not appear to be a distinct fluid collection at this level. The enhancing tissue along the tract and right epid ural space is most probably enhancing granulation tissue in a postoperative patient. The previously present posterior subcutaneous fluid collection is no longer evident. There is still some confluent enhancing edema in this region, albeit slightly less than previous. L5-S1: There is again noted a right laminotomy defect. No abnormal fluid collection at this level. Mild enhancement at the laminotomy site. Again noted is advanced disc space narrowing and posterior osteophytic ridging and some facet joint degenerative changes. There is no central canal stenosis. There is no prominent foraminal stenosis on either side. IMPRESSION: 1. Compared to the prior MRI scan of 01/12/2025 there has been significant resolution of fluid in the subcutaneous/posterior paraspinal tissues along the right side of L4-5 and there is slight decreased confluent enhancing tissue in this region. 2. There is persistent enhancement along the right operative tract at L4-5 and right side of the thec al sac, consistent with granulation tissue but there is no evidence of abscess at this level. 3. There is also no evidence of discitis nor osteomyelitis. No new disc herniations. DATA REPOSITORY:
--- NOTE | 2025-03-25 13:45 | DI.VRAD_ITS ---
PROCEDURE INFORMATION: Exam: MR Lumbar Spine Without and With Contrast Exam date and time: 03/25/2025 7:51 AM Age: 45 years old Clinical indication: Other: RT leg pain, superficial postoperative wound infection, inc pain and numbness, S/P lumbar surgery pain and numbness, S/P lumbar surgery; Aug 29 2024 laminectomy with repeat surgery in 2024 with continued pain, ? infection L4 level TECHNIQUE: Imaging protocol: Magnetic resonance imaging of the lumbar spine without and with contrast. Contrast material: DOTAREM; Contrast volume: 13 ml; Contrast route: INTRAVENOUS (IV); COMPARISON: MRI LUMBAR SPINE WWO CONTRAST 01/12/2025 11:11 AM (report not provided) FINDINGS: Bones/joints: Vertebral body heights are intact. There is a similar ovoid dark signal focus in the right L4 pedicle superiorly, extending along the right posterior aspect of the superior L4 endplate. There are no significant signal changes in the disc or adjacent endplates to indicate discitis/osteomyelitis. Spinal alignment is maintained. No pars defect is identified. Spinal cord: The conus medullaris is unremarkable in appearance, with its tip at the L1 level. There is again mild enhancement along the right aspect of the thecal sac anteriorly, laterally and posteriorly at the postoperative L4-L5 level, with decreased soft tissue thickening here and without discrete collection to indicate abscess. Multilevel findings: There are fairly similar degrees of disc desiccation indicating intervertebral disc degeneration. Mild degenerative endplate changes are again present at L5-S1. T12-L1: No significant disc displacement. L1-L2: No significant disc displacement. L2-L3: No significant disc displacement. L3-L4: Similar very small disc bulge leading to very mild bilateral neural foraminal narrowing without significant spinal stenosis. L4-L5: Again, status post right-sided laminotomy. There is a similar disc bulge with a central protrusion combining with facet arthrosis and partially resected ligamentum flavum hypertrophy to lead to similar, mild to moderate bilateral neural foraminal narrowing with mild narrowing of the bilateral lateral recesses and borderline central canal stenosis. L5-S1: Again, status post right-sided laminotomy. There is a similar disc osteophyte complex combining with facet arthrosis to lead to mild to moderate right and mild left neural foraminal narrowing without significant spinal stenosis. Soft tissues: Previously in the soft tissues along the right posterior aspect of the L4-L5 disc space, there was irregularly-shaped fluid in the subcutaneous soft tissues with curvilinear extension along the operative defect towards the right-sided laminotomy with surrounding presumably enhancing edema. There is no longer discrete fluid here, and there is decreased but still confluent enhancing edema in the region. Foci of artifact have decreased, probably with resolution of gas and residual foci of operative artifact. Kidneys and ureters: The partially included kidneys again contains cysts. IMPRESSION: 1. Postoperative spine demonstrating multilevel disc desiccation indicating intervertebral disk degeneration with disc displacements as described. Disc displacements are fairly similar as compared with 01/12/2025. 2. Resolution of fluid in the subcutaneous and posterior paraspinal soft tissues along the right aspect of L4-L5 as compared with 01/12/2025, with decreased but persistent confluent enhancing edema in the region, with decreased foci of artifact. 3. Persistent mild enhancement along the right aspect of the thecal sac at the postoperative L4-L5 level, with decreased soft tissue thickening here and without discrete collection to indicate abscess. 4. No evidence for discitis or osteomyelitis. COMMENTS: If surgery is considered, recommend level confirmation. Dictated and Authenticated by: Onel Joyce MD. Orderin Jacob Fregoso MD
== END 2025-03-25 00:45 ==
LOC: DI 00:25
PROVIDERS: PCP Nurse Practitioner Adult Health; Visit Provider Neurological Surgery
DX: M79.604 Pain in right leg (principal); T81.49XA Infection following a procedure, other surgical site, initial encounter
CPT/HCPCS: 72158

== ENCOUNTER 2025-06-13 13:16 | Emergency (ER) | payer OTHER, SELFPAY ==
[2025-06-13 13:31] VITALS: BP 96/55; PULSE 96; RESP 16; TEMP 36.3; O2SAT 99
== END 2025-06-13 14:38 | disposition left against medical advice (07) ==
LOC: ER 13:37
PROVIDERS: PCP Nurse Practitioner Adult Health
DX: Z53.21 Procedure and treatment not carried out due to patient leaving prior to being seen by health care provider (principal)
CPT/HCPCS: 99024

== ENCOUNTER 2025-06-24 07:32 | Outpatient (CLI) | payer OTHER, SELFPAY ==
[2025-06-24 07:54] LABS: Abs Immature Grans 0.01 10^3/uL (0.0-0.06); HCT 36.9 % (36.0-46.0); HGB 12.4 g/dL (11.2-15.7); Immature Grans % 0.2 %; MCH 30.0 pg (27.0-33.0); MCHC 33.6 % (32.0-36.0); MCV 89 fL (80-95); MPV 9.1 fL (8.0-11.0); Platelet Count 243 10^3/uL (130-400); RBC 4.13 10^6/uL (3.93-5.22); RDW 11.9 % (11.7-14.6); RDW-SD 38.6 fL; WBC 4.73 10^3/uL (4.4-10.8)
[2025-06-24 08:04] LABS: ALT 20 U/L (14-59); AST 12 U/L (15-37); Albumin 3.7 g/dL (3.4-5.0); Alkaline Phosphatase 58 U/L (46-116); Anion Gap 6.8 mmol/L (3-11); BUN 11 mg/dL (7-18); Bilirubin, Total 0.3 mg/dL (0.2-1.0); CO2 30.2 mmol/L (21.0-32.0); Calcium 8.8 mg/dL (8.5-10.1); Chloride 104 mmol/L (98-107); Estimated GFR 81.35 (mL/min/1.73m2); Glucose 91 mg/dL (74-106); Potassium 4.0 mmol/L (3.5-5.1); Sodium 141 mmol/L (136-145); Total Protein 7.2 g/dL (6.4-8.2)
[2025-06-24 18:09] LABS: CRP, High Sensitivity 1.98 mg/L (See Note)
== END 2025-06-24 07:33 | disposition home or self-care (01) ==
LOC: LBO 07:32
PROVIDERS: PCP Nurse Practitioner Adult Health; Visit Provider Nurse Practitioner Family
DX: T81.42XA Infection following a procedure, deep incisional surgical site, initial encounter (principal)
CPT/HCPCS: 36415; 80053; 86141; 85025